=== PATIENT | female | born 1945 | race Caucasian/White ===

== ENCOUNTER → 2017-09-23 09:10 | Outpatient (CLI) | payer MEDICARE, BC, SELFPAY ==
[2017-09-23 10:58] LABS: Free T3 2.2 pg/mL (2.18-3.98); T4 Free Direct 1.35 ng/dL (0.76-1.46); Thyroid Stim Hormone (TSH) 0.36 uIU/mL (0.358-3.74)
[2017-09-25 17:08] LABS: Anti-Thyroglobulin AB < 1.0 IU/mL (0.0-0.9); Thyroglobulin, Serum Qt. 0.1 ng/mL (1.5-38.5)
== END ==
PROVIDERS: Family Provider Family Medicine; PCP Family Medicine; Visit Provider Nurse Practitioner
DX: E03.9 Hypothyroidism, unspecified (principal)
CPT/HCPCS: 36415; 84432; 84439; 84443; 84481; 86800

== ENCOUNTER → 2018-04-29 11:57 | Outpatient (CLI) | payer MEDICARE, BC, SELFPAY ==
[2017-09-23 08:18] VITALS: BMI 30.2
[2018-04-29 14:31] LABS: Anion Gap 10 (5-15); BUN 25 mg/dL (7-18); BUN/Creat Ratio 30.8 RATIO (10-20); Calcium,Total 10.1 mg/dL (8.5-10.1); Chloride 105 mmol/L (98-107); Cholesterol 278 mg/dL (200); Creatinine, Serum 0.81 mg/dL (0.55-1.02); EST Glomerular Filtration Rate 74 mL/min (>60); Est Glom Filt Rate - Afr Amer 89 mL/min (>60); Glucose 96 mg/dL (74-106); High Density Lipoprotein 55 mg/dL; Potassium 3.9 mmol/L (3.5-5.1); Sodium Level 143 mmol/L (136-145); Thyroid Stim Hormone (TSH) 2.02 uIU/mL (0.358-3.74); Triglycerides 209 mg/dL; Very Low Density Lipoprotein 42 mg/dL (5-40)
== END ==
PROVIDERS: Family Provider Family Medicine; PCP Family Medicine; Referring Provider Family Medicine; Visit Provider Family Medicine
DX: I10 Essential (primary) hypertension (principal); E03.9 Hypothyroidism, unspecified
CPT/HCPCS: 36415; 80048; 80061; 84436; 84443

== ENCOUNTER → 2018-06-29 11:34 | Outpatient (CLI) | payer MEDICARE, BC, SELFPAY ==
[2017-09-23 08:18] VITALS: BMI 30.2
[2018-06-29 15:48] LABS: AST(SGOT) 16 U/L (15-37); Alanine Aminotransfer ALT/SGPT 22 U/L (13-56); Alkaline Phosphatase 54 U/L (45-117); Anion Gap 9 (5-15); BUN 29 mg/dL (7-18); BUN/Creat Ratio 41.7 RATIO (10-20); Bilirubin, Direct 0.12 mg/dL (0.00-0.30); Calcium,Total 8.6 mg/dL (8.5-10.1); Chloride 105 mmol/L (98-107); Cholesterol 255 mg/dL (200); EST Glomerular Filtration Rate 88 mL/min (>60); Est Glom Filt Rate - Afr Amer 107 mL/min (>60); Globulin 3.2 g/dL (2.2-4.2); Glucose 89 mg/dL (74-106); High Density Lipoprotein 51 mg/dL; Potassium 3.9 mmol/L (3.5-5.1); Protein, Total 7.2 g/dL (6.4-8.2); Sodium Level 141 mmol/L (136-145); T4 Total, Thyroxin 11.6 ug/dL (4.8-13.9); Thyroid Stim Hormone (TSH) 0.75 uIU/mL (0.358-3.74); Triglycerides 274 mg/dL; Very Low Density Lipoprotein 55 mg/dL (5-40)
== END ==
PROVIDERS: Family Provider Family Medicine; PCP Family Medicine; Referring Provider Family Medicine; Visit Provider Family Medicine
DX: E03.9 Hypothyroidism, unspecified (principal); I10 Essential (primary) hypertension
CPT/HCPCS: 36415; 80048; 80061; 80076; 84436; 84443

== ENCOUNTER → 2018-08-05 09:10 | Outpatient (CLI) | payer MEDICARE, BC, SELFPAY ==
[2018-08-05 10:35] LABS: T4 Total, Thyroxin 11.4 ug/dL (4.8-13.9); Thyroid Stim Hormone (TSH) 1.07 uIU/mL (0.358-3.74)
== END ==
PROVIDERS: Family Provider Family Medicine; PCP Family Medicine; Referring Provider Family Medicine; Visit Provider Family Medicine
DX: E03.9 Hypothyroidism, unspecified (principal)
CPT/HCPCS: 36415; 84436; 84443

== ENCOUNTER → 2019-10-26 09:23 | Outpatient (CLI) | payer MEDICARE, BC, SELFPAY ==
[2017-09-23 08:18] VITALS: BMI 30.2
[2019-10-26 11:00] LABS: Anion Gap 3 (5-15); BUN 25 mg/dL (7-18); Calcium,Total 8.8 mg/dL (8.5-10.1); Chloride 105 mmol/L (98-107); Cholesterol 269 mg/dL (200); Creatinine, Serum 0.89 mg/dL (0.55-1.02); EST Glomerular Filtration Rate 66 mL/min (>60); Est Glom Filt Rate - Afr Amer 80 mL/min (>60); Glucose 95 mg/dL (74-106); High Density Lipoprotein 50 mg/dL; Potassium 3.9 mmol/L (3.5-5.1); Sodium Level 138 mmol/L (136-145); T4 Total, Thyroxin 10.6 ug/dL (4.8-13.9); Triglycerides 172 mg/dL; Very Low Density Lipoprotein 34 mg/dL (5-40)
== END ==
PROVIDERS: PCP Family Medicine; Referring Provider Family Medicine; Visit Provider Family Medicine
DX: I10 Essential (primary) hypertension (principal); E03.9 Hypothyroidism, unspecified
CPT/HCPCS: 36415; 80048; 80061; 84436; 84443

== ENCOUNTER → 2020-02-23 08:40 | Outpatient (CLI) | payer MEDICARE, BC, SELFPAY ==
[2017-09-23 08:18] VITALS: BMI 30.2
[2020-02-23 10:48] LABS: Thyroid Stim Hormone (TSH) 0.21 uIU/mL (0.358-3.74)
== END ==
PROVIDERS: PCP Family Medicine; Visit Provider Family Medicine
DX: E03.9 Hypothyroidism, unspecified (principal)
CPT/HCPCS: 36415; 84443

== ENCOUNTER → 2020-04-18 08:21 | Outpatient (CLI) | payer MEDICARE, BC, SELFPAY ==
[2017-09-23 08:18] VITALS: BMI 30.2
[2020-04-18 10:56] LABS: Thyroid Stim Hormone (TSH) 0.28 uIU/mL (0.358-3.74)
== END ==
PROVIDERS: PCP Family Medicine; Referring Provider Family Medicine; Visit Provider Family Medicine
DX: E03.9 Hypothyroidism, unspecified (principal)
CPT/HCPCS: 36415; 84443

== ENCOUNTER → 2020-06-12 08:31 | Outpatient (CLI) | payer MEDICARE, BC, SELFPAY ==
--- NOTE | 2020-06-12 08:34 | BI_ITS ---
MAMMOGRAPHY - BILATERAL SCREENING REASON FOR EXAM: Female, 74 years old. Routine annual screening examination. PERTINENT HISTORY: Personal history of breast cancer. Prior left mastectomy and TRAM flap reconstruction. TECHNIQUE: Digital bilateral breast olegario (3D mammographic acquisition) in the CC and MLO projections. 2-D mediolateral oblique (MLO) and craniocaudad (CC) views of both breasts were obtained. CAD: Full Field Digital Mammography with Computer Added Detection was performed. COMPARISON: Comparison is made with prior abdomen examination dated 03/17/2018. FINDINGS: Breast Composition: The breasts are almost entirely fatty. There are no dominant masses or suspicious calcifications. There is deformity of the left breast. No other significant abnormalities are identified. There has been no significant change since the prior study. BI/SCRN MAMM (CAD)W/OLEGARIO BILAT IMPRESSION: Stable bilateral screening mammogram. Yearly follow-up mammogram recommended. (A) ASSESSMENT CATEGORY: BIRADS Category 2: Benign. A letter regarding these results will be sent to the patient by the facility within 30 days. Approximately 10% of breast cancers are not detected by mammography. A normal mammogram should not delay biopsy of a clinically suspicious abnormality. [id number] Electronically Signed: Dameon Cain MD at 9:49 EDT , Service support ,
== END ==
PROVIDERS: PCP Family Medicine; Referring Provider Family Medicine; Visit Provider Family Medicine
DX: Z12.31 Encounter for screening mammogram for malignant neoplasm of breast (principal); Z85.3 Personal history of malignant neoplasm of breast
CPT/HCPCS: 77063; 77067

== ENCOUNTER → 2020-10-25 14:13 | Outpatient (CLI) | payer MEDICARE, BC, SELFPAY ==
[2020-10-25 18:31] LABS: AST(SGOT) 17 U/L (15-37); Alanine Aminotransfer ALT/SGPT 34 U/L (13-56); Cholesterol 250 mg/dL (200); High Density Lipoprotein 47 mg/dL; Thyroid Stim Hormone (TSH) 0.25 uIU/mL (0.358-3.74); Triglycerides 187 mg/dL; Very Low Density Lipoprotein 37 mg/dL (5-40)
== END ==
PROVIDERS: PCP Family Medicine; Referring Provider Family Medicine; Visit Provider Family Medicine
DX: E03.9 Hypothyroidism, unspecified (principal); E78.00 Pure hypercholesterolemia, unspecified
CPT/HCPCS: 36415; 80061; 84443; 84450; 84460

== ENCOUNTER 2021-04-17 07:42 | Outpatient (CLI) | payer MEDICARE, BC, SELFPAY ==
[2021-04-17 10:30] LABS: T4 Free Direct 1.49 ng/dL (0.76-1.46)
== END 2021-04-17 23:59 | disposition home or self-care (01) ==
LOC: MTLAB 07:43
PROVIDERS: PCP Family Medicine; Referring Provider Internal Medicine Endocrinology, Diabetes & Metabolism; Visit Provider Internal Medicine Endocrinology, Diabetes & Metabolism
DX: E03.9 Hypothyroidism, unspecified (principal)
CPT/HCPCS: 36415; 84439; 84443

== ENCOUNTER → 2021-06-13 | Outpatient (CLI) | payer MEDICARE, BC, SELFPAY ==
--- NOTE | 2021-06-13 10:00 | BI_ITS ---
MAMMOGRAPHY - BILATERAL SCREENING 3-D TOMOSYNTHESIS REASON FOR EXAM: Female, 75 years old. SCREENING PERTINENT HISTORY: No significant family history. TECHNIQUE: 2-D mammograms and 3-D Tomosynthesis of the breast (s) were performed. CAD was performed. COMPARISON: 06/12/2020 FINDINGS: The breast composition is composed of scattered fibroglandular density. Scattered benign calcifications are seen. No dense spiculated masses or suspicious microcalcifications are identified. No architectural distortion is identified. There is no skin thickening or retraction. There has been no significant change since the prior study. BI/SCRN MAMM (CAD)W/OLEGARIO BILAT IMPRESSION: No mammographic signs of malignancy. Routine yearly mammograms recommended. ASSESSMENT CATEGORY: BIRADS Category 1: Negative. A letter regarding these results will be sent to the patient by the facility within 30 days. FOLLOW UP RECOMMENDATION: Yearly follow up mammogram recommended. (A) Approximately 10% of breast cancers are not detected by mammography. A normal mammogram should not delay biopsy of a clinically suspicious abnormality. Electronically Signed: Rivera Soliman MD at 14:00 EDT ,
== END | disposition home or self-care (01) ==
LOC: OPBI 09:58
PROVIDERS: PCP Family Medicine; Visit Provider Family Medicine
DX: Z12.31 Encounter for screening mammogram for malignant neoplasm of breast (principal)
CPT/HCPCS: 77063; 77067

== ENCOUNTER → 2021-10-30 | Outpatient (CLI) | payer MEDICARE, BC, SELFPAY ==
[2021-10-30 12:59] LABS: Anion Gap 8 (5-15); BUN 21 mg/dL (7-18); BUN/Creat Ratio 28.3 RATIO (10-20); Calcium,Total 9.3 mg/dL (8.5-10.1); Chloride 106 mmol/L (98-107); Cholesterol 287 mg/dL (200); Creatinine, Serum 0.74 mg/dL (0.55-1.02); EST Glomerular Filtration Rate 81 mL/min (>60); Est Glom Filt Rate - Afr Amer 98 mL/min (>60); Glucose 83 mg/dL (74-106); High Density Lipoprotein 45 mg/dL; Potassium 3.7 mmol/L (3.5-5.1); Sodium Level 141 mmol/L (136-145); Triglycerides 360 mg/dL; Very Low Density Lipoprotein 72 mg/dL (5-40)
[2021-10-30 15:23] LABS: Microalbumin,Random Urine 43.3 mg/L (NO RANGE EST.); Microalbumin:Creatinine Ratio 31.4 mg/g CRE (<30 mg/g CRE)
== END | disposition home or self-care (01) ==
LOC: MFPLAB 11:16
PROVIDERS: PCP Family Medicine; Visit Provider Family Medicine
DX: I10 Essential (primary) hypertension (principal)
CPT/HCPCS: 36415; 80048; 80061; 82043; 82570

== ENCOUNTER → 2022-02-08 | Outpatient (CLI) | payer MEDICARE, BC, SELFPAY ==
[2022-02-08 15:33] LABS: Vitamin B12 432 pg/mL (211-911); Vitamin D,25 Hydroxy 26.9 ng/mL
[2022-02-08 15:40] LABS: ALB/GLOB Ratio 1.1 RATIO (0.9-2.4); AST(SGOT) 24 U/L (15-37); Alanine Aminotransfer ALT/SGPT 42 U/L (13-56); Albumin, Serum 3.7 g/dL (3.2-5.0); Alkaline Phosphatase 70 U/L (45-117); Anion Gap 7 (5-15); BUN 26 mg/dL (7-18); BUN/Creat Ratio 35.2 RATIO (10-20); Calcium,Total 9.5 mg/dL (8.5-10.1); Chloride 105 mmol/L (98-107); Creatinine, Serum 0.74 mg/dL (0.55-1.02); EST Glomerular Filtration Rate 82 mL/min (>60); Est Glom Filt Rate - Afr Amer 99 mL/min (>60); Ferritin 90 ng/mL (8-252); Globulin 3.3 g/dL (2.2-4.2); Glucose 99 mg/dL (74-106); Potassium 3.9 mmol/L (3.5-5.1); Sodium Level 140 mmol/L (136-145); T4 Free Direct 1.44 ng/dL (0.76-1.46); Thyroid Stim Hormone (TSH) 0.24 uIU/mL (0.358-3.74)
[2022-02-08 17:46] LABS: Absolute Lymphocyte Count 2.04 X10^3/uL (0.83-4.51); Absolute Neutrophil Count 3.8 X10^3/uL (2.0-7.7); Basophil# 0.02 X10^3/uL; Basophil% 0.3 % (0-1); Eosinophil# 0.07 X10^3/uL; Eosinophils% 1.1 % (0-5); Hematocrit 44.1 % (37-47); Lymphocyte # 2.04 X10^3/ul (0.83-4.51); Mean Corp Hgb Conc 31.7 g/dL (32-36); Mean Corpuscular Hgb 28.9 pg (27.0-32.0); Mean Corpuscular Volume 90.9 fL (81-99); Mean Platelet Vol. 9.9 fl (6.2-12.0); Monocyte# 0.68 X10^3/uL; Monocyte% 10.3 % (0-10); NRBC Flagged by Analyzer 0.5 % (0-5); Neutrophil # 3.75 X10^3/uL (2.7-7.7); Platelet Count 301 K/mm3 (150-450); RBC Distribution Width CV 13.2 % (11.6-14.6); RBC Distribution Width SD 43.9 fl (35.1-43.9); Red Blood Count 4.85 M/mm3 (4.2-5.4); White Blood Count 6.6 K/mm3 (4.4-11.0)
== END | disposition home or self-care (01) ==
LOC: MTLAB 12:37
PROVIDERS: PCP Family Medicine; Referring Provider Internal Medicine Endocrinology, Diabetes & Metabolism; Visit Provider Internal Medicine Endocrinology, Diabetes & Metabolism
DX: E89.0 Postprocedural hypothyroidism (principal); K76.0 Fatty (change of) liver, not elsewhere classified; E78.2 Mixed hyperlipidemia; E55.9 Vitamin D deficiency, unspecified
CPT/HCPCS: 36415; 80053; 82306; 82607; 82728; 84439; 84443; 85025

== ENCOUNTER → 2022-03-07 | Outpatient (CLI) | payer MEDICARE, BC, SELFPAY ==
--- NOTE | 2022-03-07 09:24 | BD_ITS ---
STUDY: DUAL ENERGY X-RAY ABSORPTIOMETRY / DXA REASON FOR EXAM: Female, 76 years old. osteopenia TECHNIQUE: Bone Mineral Density (BMD) measurements of lumbar spine and bilateral hips were obtained. COMPARISON: None. FINDINGS: Lumbar Spine (L1-L4): g/cm2 (0.927) / T-score (-0.8) / Z-score (1.6) Findings are suggestive of normal bone density with a low fracture risk. Left Femur Total: g/cm2 (0.723) / T-score (-1.8) / Z-score (0.0) Left Femoral Neck: g/cm2 (0.571) / T-score (-2.5) / Z-score (-0.4) Right Femur Total: g/cm2 (0.746) / T-score (-1.6) / Z-score (0.2) Right Femoral Neck: g/cm2 (0.569) / T-score (-2.5) / Z-score (-0.4) BD/Dexa Bone Density Study IMPRESSION: The patient is considered osteopenic as outlined below according to World Davis Organization (WHO) criteria with a high fracture risk. Reference Information: The T-score is the number of standard deviations above or below the standard which is normal for young adults at their peak bone mineral density. The World Health Organization (WHO) interprets the T-scores as follows: Above -1 Normal bone density Between -1 and -2.5 Osteopenia Equal to / or below -2.5 Osteoporosis As a practical clinical guideline, osteopenia may be graded as follows: Mild -1 through -1.5 Moderate -1.6 through -2.0 Severe -2.1 through -2.4 The Z-score is the number of standard deviations above or below age-matched controls. A Z-score of less than -1.5 would be considered abnormal. References: 1. NIH Osteoporosis and Related Bone Diseases www osteo.org 2. International Society for Clinical Densitometry www iscd.org 3. National Osteoporosis Foundation www nof.org Electronically Signed: Dameon Cain MD at 14:26 EST ,
== END | disposition home or self-care (01) ==
LOC: OPBD 09:15
PROVIDERS: PCP Family Medicine; Visit Provider Internal Medicine Endocrinology, Diabetes & Metabolism
DX: M85.89 Other specified disorders of bone density and structure, multiple sites (principal)
CPT/HCPCS: 77080

== ENCOUNTER → 2022-05-13 | Outpatient (CLI) | payer MEDICARE, BC, SELFPAY ==
[2022-05-13 10:37] LABS: Cholesterol 283 mg/dL (200); High Density Lipoprotein 50 mg/dL; T4 Free Direct 1.35 ng/dL (0.76-1.46); Thyroid Stim Hormone (TSH) 1.16 uIU/mL (0.358-3.74); Triglycerides 173 mg/dL; Very Low Density Lipoprotein 35 mg/dL (5-40)
== END | disposition home or self-care (01) ==
PROVIDERS: PCP Family Medicine; Referring Provider Internal Medicine Endocrinology, Diabetes & Metabolism; Visit Provider Internal Medicine Endocrinology, Diabetes & Metabolism
DX: E89.0 Postprocedural hypothyroidism (principal); E55.9 Vitamin D deficiency, unspecified
CPT/HCPCS: 36415; 80061; 82306; 84439; 84443

== ENCOUNTER → 2022-06-14 | Outpatient (CLI) | payer MEDICARE, BC, SELFPAY ==
--- NOTE | 2022-06-14 10:07 | BI_ITS ---
MAMMOGRAPHY - BILATERAL SCREENING REASON FOR EXAM: Female, 76 years old. Routine annual screening examination. PERTINENT HISTORY: Personal history of breast cancer. Prior left mastectomy with TRAM flap reconstruction. TECHNIQUE: Digital bilateral breast olegario (3D mammographic acquisition) in the CC and MLO projections. 2-D mediolateral oblique (MLO) and craniocaudad (CC) views of both breasts were obtained. CAD: Full Field Digital Mammography with Computer Added Detection was performed. COMPARISON: Comparison is made with prior examination dated June 13, 2021 and June 12, 2020. FINDINGS: Breast Composition: The breasts are almost entirely fatty. There are no dominant masses or suspicious calcifications. Stable deformity of the left breast. No other significant abnormalities are identified. There has been no significant change since the prior study. BI/SCRN MAMM (CAD)W/OLEGARIO BILAT IMPRESSION: Stable bilateral screening mammogram. Yearly follow-up mammogram recommended. (A) ASSESSMENT CATEGORY: BIRADS Category 2: Benign. A letter regarding these results will be sent to the patient by the facility within 30 days. Approximately 10% of breast cancers are not detected by mammography. A normal mammogram should not delay biopsy of a clinically suspicious abnormality. [id number] Electronically Signed: Dameon Cain MD at 11:13 EDT ,
== END | disposition home or self-care (01) ==
PROVIDERS: PCP Family Medicine; Referring Provider Family Medicine; Visit Provider Family Medicine
DX: Z12.31 Encounter for screening mammogram for malignant neoplasm of breast (principal); Z85.3 Personal history of malignant neoplasm of breast
CPT/HCPCS: 77063; 77067

== ENCOUNTER → 2022-12-26 | Outpatient (CLI) | payer MEDICARE, BC, SELFPAY ==
[2022-12-26 12:32] LABS: Vitamin D,25 Hydroxy 65.3 ng/mL
[2022-12-26 12:41] LABS: AST(SGOT) 19 U/L (15-37); Alanine Aminotransfer ALT/SGPT 26 U/L (13-56); Albumin, Serum 3.5 g/dL (3.2-5.0); Alkaline Phosphatase 60 U/L (45-117); Anion Gap 8 (5-15); BUN 24 mg/dL (7-18); BUN/Creat Ratio 27.5 RATIO (10-20); Calcium,Total 9.5 mg/dL (8.5-10.1); Chloride 106 mmol/L (98-107); Creatinine, Serum 0.87 mg/dL (0.55-1.02); EST Glomerular Filtration Rate 67 mL/min (>60); Est Glom Filt Rate - Afr Amer 81 mL/min (>60); Globulin 3.6 g/dL (2.2-4.2); Glucose 95 mg/dL (74-106); Protein, Total 7.1 g/dL (6.4-8.2); Sodium Level 141 mmol/L (136-145); T4 Free Direct 1.39 ng/dL (0.76-1.46); Thyroid Stim Hormone (TSH) 1.46 uIU/mL (0.358-3.74)
== END | disposition home or self-care (01) ==
LOC: MTLAB 09:57
PROVIDERS: PCP Family Medicine; Referring Provider Internal Medicine Endocrinology, Diabetes & Metabolism; Visit Provider Internal Medicine Endocrinology, Diabetes & Metabolism
DX: E89.0 Postprocedural hypothyroidism (principal); M81.0 Age-related osteoporosis without current pathological fracture; E55.9 Vitamin D deficiency, unspecified
CPT/HCPCS: 36415; 80053; 82306; 84439; 84443

== ENCOUNTER 2023-01-10 13:19 | Outpatient (CLI) | payer MEDICARE, BC, SELFPAY ==
[2023-01-10 13:29] VITALS: BP 156/59; PULSE 73; RESP 16; TEMP 36.1; O2SAT 99; BMI 26.6
[2023-01-10] MEDS: 0.9% NaCl Peripheral Flush Adult/Peds IV (13:32)
[2023-01-10] MEDS: Zoledronic Acid 5 MG 100 ML 300 MG IV (13:37)
[2023-01-10 14:04] VITALS: BP 127/53; PULSE 73; RESP 16; TEMP 35.8; O2SAT 96
== END 2023-01-10 13:20 | disposition home or self-care (01) ==
LOC: MEDOUTP 13:21
PROVIDERS: PCP Family Medicine; Referring Provider Nurse Practitioner Family; Visit Provider Nurse Practitioner Family
DX: M81.0 Age-related osteoporosis without current pathological fracture (principal)
CPT/HCPCS: 96365; A4216; J3489

== ENCOUNTER → 2023-05-02 | Outpatient (CLI) | payer MEDICARE, BC, SELFPAY ==
[2023-05-02 17:39] LABS: Absolute Lymphocyte Count 2.59 X10^3/uL (0.83-4.51); Absolute Neutrophil Count 4.4 X10^3/uL (2.0-7.7); Basophil# 0.04 X10^3/uL; Basophil% 0.5 % (0-1); Eosinophil# 0.18 X10^3/uL; Eosinophils% 2.2 % (0-5); Hematocrit 43.6 % (37-47); Hemoglobin 13.8 g/dL (12.0-15.0); Lymphocyte # 2.59 X10^3/ul (0.83-4.51); Mean Corp Hgb Conc 31.7 g/dL (32-36); Mean Corpuscular Hgb 28.2 pg (27.0-32.0); Mean Corpuscular Volume 89.2 fL (81-99); Mean Platelet Vol. 9.9 fl (6.2-12.0); Monocyte# 0.85 X10^3/uL; Monocyte% 10.5 % (0-10); NRBC Flagged by Analyzer 0 % (0-5); Neutrophil % 54.4 % (47-70); Platelet Count 312 K/mm3 (150-450); RBC Distribution Width SD 45.4 fl (35.1-43.9); Red Blood Count 4.89 M/mm3 (4.2-5.4); White Blood Count 8.1 K/mm3 (4.4-11.0)
[2023-05-02 17:52] LABS: Erythrocyte Sedimentation Rate 3 mm/hr (0-30)
== END | disposition home or self-care (01) ==
LOC: MFPLAB 15:28
PROVIDERS: PCP Family Medicine; Visit Provider Family Medicine
DX: R53.81 Other malaise (principal); R53.83 Other fatigue
CPT/HCPCS: 36415; 85025; 85652

== ENCOUNTER → 2023-06-16 | Outpatient (CLI) | payer MEDICARE, BC, SELFPAY ==
--- NOTE | 2023-06-16 09:52 | BI_ITS ---
MAMMOGRAPHY - BILATERAL SCREENING REASON FOR EXAM: Female, 77 years old. Routine annual screening examination. PERTINENT HISTORY: Personal history of breast cancer. Prior left mastectomy with TRAM flap reconstruction. Right breast reduction surgery. TECHNIQUE: Digital bilateral breast olegario (3D mammographic acquisition) in the CC and MLO projections. 2-D mediolateral oblique (MLO) and craniocaudad (CC) views of both breasts were obtained. CAD: Full Field Digital Mammography with Computer Added Detection was performed. COMPARISON: Comparison is made with prior study June 14, 2022 and June 13, 2021. FINDINGS: Breast Composition: The breasts are almost entirely fatty. There are no dominant masses or suspicious calcifications. Benign-appearing right axillary lymph nodes. No other significant abnormalities are identified. There has been no significant change since the prior study. BI/SCRN MAMM (CAD)W/OLEGARIO BILAT IMPRESSION: Stable bilateral screening mammogram. Yearly follow-up mammogram recommended. (A) ASSESSMENT CATEGORY: BIRADS Category 2: Benign. A letter regarding these results will be sent to the patient by the facility within 30 days. Approximately 10% of breast cancers are not detected by mammography. A normal mammogram should not delay biopsy of a clinically suspicious abnormality. [id number] Electronically Signed: Dameon Cain MD at 11:34 EDT ,
== END | disposition home or self-care (01) ==
LOC: OPBI 09:52
PROVIDERS: PCP Family Medicine; Referring Provider Family Medicine; Visit Provider Family Medicine
DX: Z12.31 Encounter for screening mammogram for malignant neoplasm of breast (principal); Z85.3 Personal history of malignant neoplasm of breast; Z90.12 Acquired absence of left breast and nipple
CPT/HCPCS: 77063; 77067

== ENCOUNTER → 2023-10-17 | Outpatient (CLI) | payer MEDICARE, BC, SELFPAY ==
--- NOTE | 2023-10-17 10:06 | RAD_ITS ---
STUDY: X-RAY - LUMBAR SPINE REASON FOR EXAM: Female, 78 years old. Back pain. TECHNIQUE: 2 view(s) of the lumbar spine were obtained. COMPARISON: None FINDINGS: Osteopenia. Normal lordosis. Mild dextroscoliosis. Normal vertebral alignment. Diffuse moderate lower thoracic and lumbosacral facet sclerosis. Diffuse intervertebral disc space narrowing with osteophyte formation, subchondral sclerosis and endplate irregularity most marked at L4-5. Vascular calcification and coils projected over the left abdomen. RAD/Lumbar Spine 2 or 3 Views IMPRESSION: Osteopenia with diffuse moderate lower thoracic and lumbosacral spondylosis, most marked at L4-5. Electronically Signed: Liu Fuller MD at 10:23 EDT ,
== END | disposition home or self-care (01) ==
LOC: MTRAD 10:06
PROVIDERS: PCP Family Medicine; Referring Provider Internal Medicine Endocrinology, Diabetes & Metabolism; Visit Provider Internal Medicine Endocrinology, Diabetes & Metabolism
DX: M81.0 Age-related osteoporosis without current pathological fracture (principal); M54.9 Dorsalgia, unspecified
CPT/HCPCS: 72100

== ENCOUNTER → 2024-01-08 | Outpatient (CLI) | payer MEDICARE, BC, SELFPAY ==
[2024-01-08 13:00] LABS: ALB/GLOB Ratio 1.1 RATIO (0.9-2.4); AST(SGOT) 13 U/L (15-37); Alanine Aminotransfer ALT/SGPT 23 U/L (13-56); Albumin, Serum 3.5 g/dL (3.2-5.0); Alkaline Phosphatase 40 U/L (45-117); Anion Gap 2 (5-15); BUN 22 mg/dL (7-18); BUN/Creat Ratio 30.9 RATIO (10-20); Calcium,Total 9.3 mg/dL (8.5-10.1); Chloride 106 mmol/L (98-107); Creatinine, Serum 0.71 mg/dL (0.55-1.02); EST Glomerular Filtration Rate 85 mL/min (>60); Est Glom Filt Rate - Afr Amer 102 mL/min (>60); Globulin 3.3 g/dL (2.2-4.2); Glucose 92 mg/dL (74-106); Potassium 3.8 mmol/L (3.5-5.1); Protein, Total 6.8 g/dL (6.4-8.2); Sodium Level 141 mmol/L (136-145); T4 Free Direct 1.49 ng/dL (0.76-1.46)
[2024-01-08 13:19] LABS: Vitamin D,25 Hydroxy 33.9 ng/mL
== END | disposition home or self-care (01) ==
PROVIDERS: PCP Family Medicine; Referring Provider Internal Medicine Endocrinology, Diabetes & Metabolism; Visit Provider Internal Medicine Endocrinology, Diabetes & Metabolism
DX: M81.0 Age-related osteoporosis without current pathological fracture (principal); E89.0 Postprocedural hypothyroidism; E55.9 Vitamin D deficiency, unspecified
CPT/HCPCS: 36415; 80053; 82306; 84439; 84443

== ENCOUNTER 2024-01-15 12:54 | Outpatient (CLI) | payer MEDICARE, BC, SELFPAY ==
[2024-01-15 13:03] VITALS: BP 146/70; PULSE 72; RESP 16; TEMP 35.6; O2SAT 98
[2024-01-15] MEDS: 0.9% NaCl Peripheral Flush Adult/Peds IV (13:05)
[2024-01-15] MEDS: Zoledronic Acid 5 MG 100 ML 300 MG IV (13:11)
[2024-01-15 13:37] VITALS: BP 127/47; PULSE 72; RESP 16; TEMP 35.9; O2SAT 98
== END 2024-01-15 23:59 | disposition home or self-care (01) ==
LOC: MEDOUTP 12:54
PROVIDERS: PCP Family Medicine; Referring Provider Internal Medicine Endocrinology, Diabetes & Metabolism; Visit Provider Internal Medicine Endocrinology, Diabetes & Metabolism
DX: M81.0 Age-related osteoporosis without current pathological fracture (principal)
CPT/HCPCS: 96365; A4216; J3489

== ENCOUNTER 2024-01-29 11:00 | Outpatient (RCR) | payer MEDICARE, BC, SELFPAY | END 2024-01-29 14:50 | disposition home or self-care (01) | LOC: PT 11:00 | PROVIDERS: PCP Family Medicine; Referring Provider Internal Medicine Endocrinology, Diabetes & Metabolism; Visit Provider Internal Medicine Endocrinology, Diabetes & Metabolism | DX: M47.816 Spondylosis without myelopathy or radiculopathy, lumbar region (principal); M54.9 Dorsalgia, unspecified | CPT/HCPCS: 97110; 97162; 97530 ==

== ENCOUNTER → 2024-03-22 | Outpatient (CLI) | payer MEDICARE, BC, SELFPAY ==
[2024-03-22 15:46] LABS: Protein, Urine (Random) 21.2 mg/dL (<11.9); Protein:Creat Ratio 156 mg/g CRE (0-200)
[2024-03-22 16:14] LABS: Anion Gap 9 (5-15); BUN 27 mg/dL (7-18); BUN/Creat Ratio 33.3 RATIO (10-20); Calcium,Total 9.4 mg/dL (8.5-10.1); Chloride 102 mmol/L (98-107); Cholesterol 246 mg/dL (200); Creatinine, Serum 0.81 mg/dL (0.55-1.02); EST Glomerular Filtration Rate 73 mL/min (>60); Est Glom Filt Rate - Afr Amer 88 mL/min (>60); Glucose 84 mg/dL (74-106); High Density Lipoprotein 62 mg/dL; Potassium 3.8 mmol/L (3.5-5.1); Sodium Level 137 mmol/L (136-145); Triglycerides 175 mg/dL; Very Low Density Lipoprotein 35 mg/dL (5-40)
== END | disposition home or self-care (01) ==
LOC: MFPLAB 10:04
PROVIDERS: PCP Family Medicine; Referring Provider Family Medicine; Visit Provider Family Medicine
DX: I10 Essential (primary) hypertension (principal)
CPT/HCPCS: 36415; 80048; 80061; 82570; 84156

== ENCOUNTER → 2024-06-16 | Outpatient (CLI) | payer MEDICARE, BC, SELFPAY ==
--- NOTE | 2024-06-16 09:51 | BI_ITS ---
EXAM: SCRN MAMM (CAD)W/OLEGRAIO BILAT DATE: 06/16/2024 CLINICAL HISTORY: F, Age 78 y/o , ANNUAL Personal history of breast cancer. Prior left mastectomy with left tram flap reconstruction. Right breast reduction surgery. BREAST CANCER RISK ASSESSMENT: Not assessed. TECHNIQUE: Bilateral screening digital breast tomosynthesis with 2D and 3D images. Computer aided detection. COMPARISON: Prior exam(s) dated June 16, 2023.. FINDINGS: TISSUE DENSITY: The breast tissue is almost entirely fatty. Bilateral Breast Mammographic Findings: No significant masses, calcifications or other abnormalities are identified. No suspicious masses, areas of developing architectural distortion, or suspicious calcifications. There has been no significant interval change. BI/SCRN MAMM (CAD)W/OLEGARIO BILAT IMPRESSION: OVERALL FINAL ASSESSMENT: BIRADS 2 BENIGN FINDING RECOMMENDATION: Routine annual follow-up in 1 Year A letter with findings and recommendations will be mailed to the patient. Reading Location: [place] [id number]
== END | disposition home or self-care (01) ==
LOC: OPBI 09:51
PROVIDERS: PCP Family Medicine; Referring Provider Family Medicine; Visit Provider Family Medicine
DX: Z12.31 Encounter for screening mammogram for malignant neoplasm of breast (principal); Z85.3 Personal history of malignant neoplasm of breast; Z90.12 Acquired absence of left breast and nipple
CPT/HCPCS: 77063; 77067

== ENCOUNTER → 2024-08-09 | Outpatient (CLI) | payer MEDICARE, BC, SELFPAY ==
[2024-08-09 17:59] LABS: Hemoglobin A1c 5.8 % (<=5.6)
[2024-08-09 18:04] LABS: Absolute Lymphocyte Count 2.71 X10^3/uL (0.83-4.51); Absolute Neutrophil Count 5.1 X10^3/uL (2.0-7.7); Basophil# 0.06 X10^3/uL; Basophil% 0.7 % (0-1); Eosinophils% 1.1 % (0-5); Hematocrit 40.9 % (37-47); Hemoglobin 13.8 g/dL (12.0-15.0); Lymphocyte # 2.71 X10^3/ul (0.83-4.51); Lymphocyte % 30.5 % (19-41); Mean Corp Hgb Conc 33.7 g/dL (32-36); Mean Corpuscular Hgb 29.7 pg (27.0-32.0); Mean Corpuscular Volume 88.1 fL (81-99); Mean Platelet Vol. 9.3 fl (6.2-12.0); Monocyte# 0.92 X10^3/uL; Monocyte% 10.3 % (0-10); NRBC Flagged by Analyzer 0 % (0-5); Neutrophil # 5.07 X10^3/uL (2.7-7.7); Neutrophil % 57.1 % (47-70); Platelet Count 291 K/mm3 (150-450); RBC Distribution Width CV 13.2 % (11.6-14.6); RBC Distribution Width SD 42.5 fl (35.1-43.9); Red Blood Count 4.64 M/mm3 (4.2-5.4); White Blood Count 8.9 K/mm3 (4.4-11.0)
[2024-08-10 15:53] LABS: ALB/GLOB Ratio 1.6 RATIO (0.9-2.4); AST(SGOT) 22 U/L (<=31); Alanine Aminotransfer ALT/SGPT 13 U/L (<=34); Albumin, Serum 4.4 g/dL (3.4-4.8); Alkaline Phosphatase 45 U/L (35-104); Anion Gap 12 (5-15); BUN 24 mg/dL (4-19); BUN/Creat Ratio 26.8 RATIO (10-20); Calcium,Total 9.1 mg/dL (7.6-11.0); Carbon Dioxide 23.5 mmol/L (21.0-32.0); Chloride 101 mmol/L (98-108); Creatinine, Serum 0.89 mg/dL (0.70-1.20); EST Glomerular Filtration Rate 67 (>60); Globulin 2.7 g/dL (2.2-4.2); Glucose 95 mg/dL (70-99); Sodium Level 137 mmol/L (133-145); Total Bilirubin 0.28 mg/dL (0.00-1.30)
== END | disposition home or self-care (01) ==
LOC: MFPLAB 16:34
PROVIDERS: PCP Family Medicine
DX: N39.0 Urinary tract infection, site not specified (principal)
CPT/HCPCS: 36415; 80053; 82248; 83036; 84443; 85025

== ENCOUNTER → 2024-08-19 | Outpatient (CLI) | payer MEDICARE, BC, SELFPAY ==
--- NOTE | 2024-08-19 15:04 | RAD_ITS ---
EXAM: XR Chest, 2 Views CLINICAL INDICATION: EXERCTION E TECHNIQUE: Frontal and lateral views of the chest. COMPARISON: No relevant prior studies available. FINDINGS: LUNGS AND PLEURAL SPACES: Unremarkable. No consolidation. No pneumothorax. HEART: Unremarkable. No cardiomegaly. MEDIASTINUM: Unremarkable. Normal mediastinal contour. BONES/JOINTS: Suggestion of pectus excavatum. No acute fracture. RAD/Chest PA and Lateral IMPRESSION: No acute cardiopulmonary process. Reading Location: [id number]
== END | disposition home or self-care (01) ==
LOC: MTRAD 15:03
PROVIDERS: PCP Family Medicine; Referring Provider Family Medicine; Visit Provider Family Medicine
DX: N39.0 Urinary tract infection, site not specified (principal)
CPT/HCPCS: 71046

== ENCOUNTER → 2024-09-22 | Outpatient (CLI) | payer MEDICARE, BC, SELFPAY ==
--- NOTE | 2024-09-22 06:51 | ECHOD_ITS ---
Reason For Study Reason For Study: ATRIAL FLUTTER Procedure This was a 2D Doppler, Color Flow transthoracic echocardiogram. The study was technically difficult. Exam performed in department. Left Ventricle Normal LV size. The left ventricular ejection fraction is 60 %. No regional wall motion abnormalities noted. Right Ventricle Normal RV size. Normal systolic function. Atria Normal left atrium. Normal right atrium. Mitral Valve Normal mitral valve. Tricuspid Valve Normal tricuspid valve. Mild tricuspid valve insufficiency. Pulmonary artery systolic pressure is 23 mmHg. Aortic Valve Trisinus/trileaflet aortic valve. Mild focal aortic valve calcification. Mild (1+) eccentric aortic valve insufficiency. Pulmonic Valve Normal pulmonic valve. Great Vessels Normal aortic root. The pulmonary artery is normal size. Inferior vena cava collapse with respiration. Pericardium/Pleural No pericardial effusion. MMode/2D Measurements & Calculations LVIDd: 4.1 cm IVSd: 1.2 cm LVOT diam: 1.9 cm LVIDs: 2.9 cm LVPWd: 0.97 cm LVOT area: 2.7 cm2 RVDd: 3.0 cm FS: 29.8 % asc Aorta Diam: 2.8 cm LAV(MOD-sp4): 12.1 ml LVAd ap4: 16.2 cm2 LVLd ap4: 7.2 cm EDV(MOD-sp4): 30.6 ml EDV(sp4-el): 31.1 ml LVAs ap4: 9.3 cm2 LVLs ap4: 5.6 cm ESV(MOD-sp4): 13.3 ml ESV(sp4-el): 13.1 ml EF(MOD-sp4): 56.4 % EF(sp4-el): 57.7 % LVAd ap2: 16.9 cm2 SV(MOD-sp4): 17.3 ml SV(MOD-sp2): 19.3 ml LVLd ap2: 6.9 cm SI(MOD-sp4): 9.8 ml/m2 SI(MOD-sp2): 10.9 ml/m2 EDV(MOD-sp2): 34.5 ml EDV(sp2-el): 35.4 ml LVAs ap2: 10.3 cm2 LVLs ap2: 5.8 cm ESV(MOD-sp2): 15.2 ml ESV(sp2-el): 15.5 ml EF(MOD-sp2): 56.0 % SV(sp4-el): 17.9 ml Ao sinus diam: 3.[address] Junction: 2.6 cm TAPSE: 1.6 cm LA A4 area: 8.0 cm2 RA A4 area: 7.9 cm2 Doppler Measurements & Calculations MV A max tariq: 101.7 cm/sec Lat Peak E' Tariq: 5.2 cm/sec Med Peak E' Tariq: 5.5 cm/sec Ao V2 max: 119.2 cm/sec LV V1 max: 83.0 cm/sec SV(LVOT): 47.6 ml Ao max P.7 mmHg LV V1 max P.8 mmHg Ao V2 mean: 83.8 cm/sec LV V1 mean P.4 mmHg Ao mean P.0 mmHg LV V1 mean: 55.8 cm/sec Ao V2 VTI: 20.8 cm LV V1 VTI: 17.4 cm AV (velocity ratio): 0.84 ELZA(I,D): 2.3 cm2 ELZA(V,D): 1.9 cm2 TV V2 max: 217.8 cm/sec PA V2 max: 94.4 cm/sec TV max P.0 mmHg ECHO/Echo Complete Interpretation Summary Normal LV size. The left ventricular ejection fraction is 60 %. Mild focal aortic valve calcification. Mild (1+) eccentric aortic valve insufficiency. Ordering Physician: Nithin Brandon Referring Physician: Nithin Brandon Performed By: Yue Ross RDCS and Student
--- OUTSIDE RECORDS SUMMARY | 2024-09-22 06:51 | XMS RPT_ITS | CCD ---
Author Organization [facility] Care Team Providers Care Medical Underwriter Name Role Phone Pearl BLACKMON, Ashley Herbert Unavailable Dr. Martina Doll Primary Care Provider Dr. Martina Doll Referring Provider [phone] Lake Campos Attending Provider [phone] Dr. Martina Doll Primary Care Provider Dr. Martina Doll Referring Provider [phone] [place] Campos Attending Provider Dr. Martina Doll Primary Care Provider Dr. Martina Doll Referring Provider [phone] [place] Campos Attending Provider Dr. Martina Doll Primary Care Provider Dr. Martina Doll Referring Provider [phone] [place] Campos Attending Provider [phone] Dr. Martina Doll MD Primary Care Provider Dr. Martina Doll MD Attending Provider Dr. Maritna Doll MD Referring Provider Dr. Nithin Brandon MD Primary Care Provider Dr. Nithin Brandon MD Attending Provider Dr. Nithin Brandon MD Referring Provider [phone] Martina Doll Primary Care Provider [phone] DINA MAYA Attending Unavailable MARTINA DOLL Primary Care Unavailable Giselle Bell Attending Provider Jolliff, Martina S Primary Care Unavailable Jolliff, Martina S Referring Unavailable Jolliff, Martina S Attending Unavailable Andres, Lake Attending Unavailable Andres, Lake Referring Unavailable Jolliff, Martina S Primary Care Unavailable Jolliff, Martina S Primary Care Unavailable Andres, Lake Attending Unavailable Andres, Lake Referring Unavailable Jolliff, Martina S Primary Care Unavailable Andres, Lake Referring Unavailable Andres, Lake Attending Unavailable Jolliff, Martina S Primary Care Unavailable Andres, Lake Referring Unavailable Andres, Lake Attending Unavailable Ranney, Christshirleyer Primary Care Unavailable Ranney, Alexer Referring Unavailable Roma, Nithin Attending Unavailable Giselle Paredes NP Attending Unavailable [facility], [facility] Unavailable Ranney, Christopher Referring Unavailable Roma, Nithin Attending Unavailable Roma, Christopher Primary Care Unavailable Jolliff, Martina S Primary Care Unavailable Andres, Lake Attending Unavailable Jolliff, Martina S Referring Unavailable Roma, Christopher Primary Care Unavailable Roma, Alexer Referring Unavailable Nithin Brandon Attending Unavailable Medications Current Medications Medication Drug Class(es) Dates Sig (Normalized) Sig (Original) atenolol 25 mg oral tablet (15 sources) beta-Adrenergic Edda Start: 07-19-2016 take 1 tablet by mouth once daily Atenolol 25 MG tablet Active 25 mg PO DAILY July 19, 2016 12:00am calcium carb/vit D3/minerals (CALTRATE 600+D PLUS MINERALS ORAL) (1 source) calcium carb/vit D3/minerals (CALTRATE 600+D PLUS MINERALS ORAL) Active calcium carbonate 1250 mg oral tablet (3 sources) Start: 10-16-2023 take 1 tablet by mouth every other day Calcium Carbonate 500 mg calcium (1,250 mg) tablet Active 500 mg PO every other day October 16, 2023 12:00am cholecalciferol 0.025 mg oral capsule (20 sources) Vitamin D Start: 10-16-2023 take 1 capsule by mouth once daily Cholecalciferol (Vitamin D3) 25 mcg (1,000 unit) capsule Active 25 ug PO DAILY October 16, 2023 12:00am Start: 11-19-2022 End: 10-16-2023 take 1 capsule by mouth once daily Cholecalciferol (Vitamin D3) 125 mcg (5,000 unit) capsule Discontinued 250 ug PO DAILY November 19, 2022 10:27am October 16, 2023 1:54pm Start: 02-08-2021 End: 11-19-2022 take 1 capsule by mouth once daily Cholecalciferol (Vitamin D3) 125 mcg (5,000 unit) capsule Discontinued 125 ug PO DAILY February 08, 2021 1:00am November 19, 2022 10:28am icosapent ethyl 500 mg oral capsule (20 sources) Start: 12-28-2023 End: 05-13-2024 Icosapent Ethyl (Vascepa) 0. 5 gram capsule Active 2 g PO TWICE A DAY 720 May 13, 2024 12:45pm Start: 02-07-2022 End: 12-28-2023 Icosapent Ethyl (Vascepa) 1 gram capsule Discontinued 2 g PO TWICE A DAY 360 December 24, 2023 11:39am December 28, 2023 8:55pm VASCEPA 0.5 gram capsule Active Gixcbbyg-Lqm-Ssiq-Fa-Lutein (Centrum Silver Women) 8 mg iron-400 mcg-300 mcg tablet (3 sources) Start: 03-11-2022 take 1 tablet by mouth once daily Gdyonvhr-Whh-Csla-Fa-Lutein (Centrum Silver Women) 8 mg iron-400 mcg-300 mcg tablet Active 1 TABLET PO DAILY March 11, 2022 1:00am Start: 03-11-2022 take 1 tablet by byron once daily Kflbwrbg-Jdd-Kxsr-Fa-Lutein (Centrum Loretta yas Women) 8 mg iron-400 mcg-300 mcg tablet Active 1 TABLET PO DAILY March 11, 2022 12:00am vitamin K2 (4 sources) Start: 11-19-2022 take 45 ug by mouth once daily Vitamin K2 Active 45 MCG PO DAILY November 19, 2022 12:00am Start: 11-19-2022 take 45 ug by mouth once daily Vitamin K2 Active 45 MCG PO DAILY November 18, 2022 11:00pm 100 ml zoledronic acid 0.05 mg/ml injection (10 sources) Bisphosphonate Start: 12-26-2022 End: 12-29-2023 take 5 mg intravenously once Zoledronic Nhva-Qqhsvswr-Qjflt 5 mg/100 mL piggyback Active 0 .ROUTE ONCE 100 0 December 29, 2023 10:28am Osteoporosis Age-related osteoporosis without current pathological fracture 5 mg IVP x1 once; infuse over 20 minutes Completed/Discontinued Medications Medication Drug Class(es) Dates Sig (Normalized) Sig (Original) aspirin 81 mg oral tablet (1 source) Platelet Aggregation Inhibitor, Nonsteroidal Anti-inflammatory Drug Start: 10-21-2005 End: 07-21-2024 ASPIRIN 81 MG TAB Take one(1) tablet daily. 0 10/21/2005 07/21/2024 Discontinued (Other) atorvastatin 20 mg oral tablet (1 source) HMG-CoA Reductase Inhibitor Start: 09-15-2012 End: 07-21-2024 take 1 tablet by mouth once daily at bedtime atorvastatin (LIPITOR) 20 mg tablet Take 1 tablet by mouth daily at bedtime. 0 09/15/2012 07/21/2024 Discontinued (Other) calcium carbonate 600 mg / cholecalciferol 0.01 mg oral tablet (14 sources) Vitamin D Start: 02-08-2021 End: 10-16-2023 Qul-A5-Osw17-Zinc -Nfc-Orzb-Mse (Caltrate 600-D Plus Minerals) 600 mg calcium- 800 unit-50 mg tablet Discontinued 1 {tbl} PO DAILY February 08, 2021 1:00am October 16, 2023 1:53pm Start: 09-20-2005 End: 07-21-2024 CALCIUM 600 + D(3) 600 MG-20 0 UNIT TAB Take one(1) tablet two(2) times daily. 0 09/20/2005 07/21/2024 Discontinued (Other) meclizine hydrochloride 25 mg chewable tablet (13 sources) Antiemetic Start: 07-20-2016 End: 02-07-2022 take 1 tablet by mouth four times daily as needed for dizziness Meclizine 25 MG tablet,chewable Discontinued 25 mg PO 4 TIMES DAILY NEEDED as needed for Dizziness 16 0 July 20, 2016 12:08am February 07, 2022 10:23am Quxxqyrj-Wri-Egxr-Fa -Vit K-Lut (Centrum Silver Women) 8 mg iron-400 mcg-300 mcg tablet (7 sources) Start: 03-11-2022 End: 01-10-2023 Weecpwbj-Oil-Blnm-Fa- Vit K-Lut (Centrum Silver Women) 8 mg iron-400 mcg-300 mcg tablet Discontinued 1 {tbl} PO DAILY March 11, 2022 1:00am January 10, 2023 2:28pm Start: 03-11-2022 End: 01-10-2023 take 1 tablet by mouth once daily Kesyhqzc-Wef-Rlml-Fa-Vit K-Lut (Centrum Silver Women) 8 mg iron-400 mcg-300 mcg tablet Discontinued 1 TABLET PO DAILY March 11, 2022 1:00am January 10, 2023 2:28pm Start: 03-11-2022 End: 01-10-2023 take 1 tablet by mouth once daily Vuhobnro-Bju-Ztvh-Fa-Vit K-Lut (Centrum Silver Women) 8 mg iron-400 mcg-300 mcg tablet Discontinued 1 TABLET PO DAILY March 11, 2022 12:00am January 10, 2023 1:28pm Start: 03-11-2022 take 1 tablet by byron th once daily Urnkdawr-Swh-Lsnq-Fa-Vit K-Lut (Centrum Silver Women) 8 mg iron-400 mcg-300 mcg tablet Active 1 TABLET PO DAILY March 11, 2022 12:00am Gary 0-Ojd-Ujy-Fish-Turmeri c (7 sources) Start: 03-11-2022 End: 01-10-2023 Gary 4-Jhs-Haa-Fish-Turmeri c Discontinued 0 PO .COMPLEX March 11, 2022 1:00am January 10, 2023 2:28pm orally; 720mg Start: 03-11-2022 End: 01-10-2023 Gary 4-Qgm-Xsz-Fish-Turmeri c Discontinued 0 PO .COMPLEX March 11, 2022 12:00am January 10, 2023 1:28pm orally; 720mg Start: 03-11-2022 Gary 3-Dha-Ep n-Tsur-Byrkhxjm Active 0 PO .COMPLEX March 11, 2022 1:00am orally; 720mg Start: 03-11-2022 Gary 3-Dha-Ep s-Fsxl-Ctcassph Active 0 PO .COMPLEX March 11, 2022 12:00am orally; 720mg Gary 7-Pvc-Joi-Fish-Turmeric 417 mg-120 mg- 276 mg-600 mg capsule (3 sources) Start: 03-11-2022 End: 01-10-2023 Gary 7-Hth-Xom-Fish-Turmeric 417 mg-120 mg- 276 mg-600 mg capsule Discontinued 0 PO .COMPLEX March 11, 2022 1:00am January 10, 2023 2:28pm orally; 720mg levothyroxine sodium 0.112 mg oral tablet (20 sources) l-Thy roxin e Start: 02-10-2022 End: 07-12-2024 take 1 tablet by mouth once daily Levothyroxine 112 mcg tablet Discontinued 112 ug PO DAILY 90 0 July 07, 2024 12:09pm July 12, 2024 7:45am Start: 02-08-2021 End: 02-10-2022 take 6 tablets by mouth every week Levothyroxine 150 mcg tablet Discontinued 150 ug PO February 08, 2021 1:00am February 10, 2022 2:02pm 6 1/2per week Start: 09-03-2017 End: 02-07-2022 take 7.5 tablets by mouth every week Levothyroxine 125 mcg tablet Discontinued 0 PO DAILY 98 4 September 03, 2017 5:58pm February 07, 2022 10:23am 7.5 tablets q week PO DAILY Start: 05-02-2015 End: 07-21-2024 take 1 tablet by mouth once daily Levothyroxine 125 MCG tablet Discontinued 125 ug PO DAILY July 19, 2016 12:00am September 03, 2017 2:34pm SYNTHROID 125 MC G TABS Take 7.5 tablets per one week. LEVOTHYROXINE SODIUM [id number] Ashley Kang NP Vitamin K2 45 mcg capsule (3 sources) Start: 11-19-2022 End: 10-16-2023 Vitamin K2 45 mcg capsule Discontinued 45 ug PO DAILY November 19, 2022 12:00am October 16, 2023 1:54pm Problems Active Problems Problem Classification Problem Date Documented Date Episodic/Chronic Cancer of breast (1 source) Malignant tumor of breast ; Translations: [Malignant neoplasm of unspecified site of unspecified female breast] Onset: 07-13-2004 06-22-2024 Chronic Cancer of breast (2 sources) History of malignant neoplasm of breast; Translations: [Personal history of malignant neoplasm of breast] Onset: 07-21-2024 07-21-2024 Episodic Complications of surgical procedures or medical care (20 sources) Postoperative hypothyroidism; Translations: [Postprocedural hypothyroidism] Onset: 06-03-2011 Chronic Disorders of lipid metabolism (15 sources) Mixed hyperlipidemia; Translations: [Mixed hyperlipidemia] Onset: 06-03-2011 Chronic Essential hypertension (2 sources) Essential hypertension; Translations: [Essential (primary) hypertension] Onset: 06-03-2011 06-03-2011 Chronic Nutritional deficiencies (16 sources) Vitamin D deficiency; Translations: [Vitamin D deficiency, unspecified] Onset: 10-16-2023 03-11-2022 Chronic Osteoporosis (16 sources) Osteoporosis; Translations: [Age-related osteoporosis without current pathological fracture] Onset: 02-13-2024 03-11-2022 Chronic Other liver diseases (13 sources) Steatosis of liver; Translations: [Fatty (change of) liver, not elsewhere classified] 02-08-2021 Chronic Other liver diseases (3 sources) Fatty (change of) liver, not elsewhere classified; Translations: [Other chronic nonalcoholic liver disease] Chronic Other lower respiratory disease (1 source) Other forms of dyspnea; Translations: [Other forms of dyspnea] Onset: 09-15-2024 Episodic Other nutritional; endocrine; and metabolic disorders (13 sources) Obesity; Translations: [Obesity, unspecified] 02-08-2021 Chronic Other nutritional; endocrine; and metabolic disorders (1 source) Metabolic syndrome X; Translations: [Dysmetabolic syndrome X] Onset: 03-20-2006 06-22-2024 Chronic Other screening for suspected conditions (not mental disorders or infectious disease) (1 source) Encounter for screening mammogram for malignant neoplasm of breast; Translations: [Encounter for screening mammogram for malignant neoplasm of breast] Onset: 06-21-2024 Episodic Residual codes; unclassified (1 source) Patient encounter status; Translations: [Other specified personal risk factors, not elsewhere classified] 07-21-2024 Episodic Residual codes; unclassified (1 source) Other specified personal risk factors, not elsewhere classified; Translations: [HYDROSTATIC TESTER exam for high-risk Medicare patient] Onset: 07-21-2024 Episodic Unclassified (1 source) Malignant tumor of breast ; Translations: [Malignant neoplasm of female breast] Onset: 11-02-2003 06-22-2024 Urinary tract infections (1 source) Urinary tract infection, site not specified; Translations: [Urinary tract infection, site not specified] Onset: 08-24-2024 Episodic Past or Other Problems Problem Classification Problem Date Documented Da te Episodic/Chronic Biliary tract disease (1 source) Chronic cholecystitis; Translations: [Chronic cholecystitis] Onset: 03-04-2006 Resolved: 06-03-2011 06-03-2011 Episodic Spondylosis; intervertebral disc disorders; other back problems (4 sources) Backache; Translations: [Dorsalgia, unspecified] Onset: 10-16-2023 10-16-2023 Episodic Thyroid disorders (2 sources) Hypothyroidism; Translations: [Non-toxic uninodular goiter] Onset: 06-21-2005 Resolved: 06-03-2011 03-27-2016 Chronic Unclassified (1 source) History of thyroidectomy; Translations: [Acquired absence of other organs] Onset: 03-27-2016 03-27-2016 Episodic Results Test Name Value Interpretation Reference Range Facility Chest PA and Lateralon 08-19 Chest PA and Lateral [facility] Imaging Services [address] [place] [id number] Chest PA and Lateral MR#: [id number] Acct: [id number] Name: MARLINE MABRY Rep #: [id number] : 1945 F 79 From: Kiel Roth MD PCP: Dr. Nithin Brandon MD Status: REG CLI Study: Chest PA and Lateral Date of Exam: 08/19/24 Exam# [id number] Ordering Dr: Nithin Brandon EXAM: XR Chest, 2 Views CLINICAL INDICATION: EXERCTION E TECHNIQUE: Frontal and lateral views of the chest. COMPARISON: No relevant prior studies available. FINDINGS: LUNGS AND PLEURAL SPACES: Unremarkable. No consolidation. No pneumothorax. HEART: Unremarkable. No cardiomegaly. MEDIASTINUM: Unremarkable. Normal mediastinal contour. BONES/JOINTS: Suggestion of pectus excavatum. No acute fracture. RAD/Chest PA and Lateral IMPRESSION: No acute cardiopulmonary process. Reading Location: [id number] CC: Dr. Nithin Brandon MD Stock Clerk: Signed Normal [facility] Bilirubin, Directon 08-11-19 25 Bilirubin.direct [Mass/Vol] 0.10 mg/dL Normal 0.00-0.30 [facility] Comment on above: Performed By: #### L 500.4050, L501.9520, L501.4700, L100.0100, L501.9985 #### [facility] [address] [place], [address] Comprehensive Metabolic Prof ilon 08-10-2024 Albumin [Mass/Vol] 4.4 g/dL Normal 3.4-4.8 [facility] Comment on above: Performed By: #### L 500.4050, L501.9520, L501.4700, L100.0100, L501.9985 #### [facility] [address] [place], [address] Albumin/Globulin [Mass ratio] 1.6 {ratio} Normal 0.9-2.4 [facility] Comment on above: Performed By: #### L 500.4050, L501.9520, L501.4700, L100.0100, L501.9985 #### [facility] [address] [place], [address] ALK PHOS 45 U/L Normal 35-104 [facility] Comment on above: Performed By: #### L 500.4050, L501.9520, L501.4700, L100.0100, L501.9985 #### [facility] [address] [place], [address] ALT [Catalytic activity/Vol] 13 U/L Normal <=34 [facility] Comment on above: Performed By: #### L 500.4050, L501.9520, L501.4700, L100.0100, L501.9985 #### [facility] [address] [place], [address] AST [Catalytic activity/Vol] 22 U/L Normal <=31 [facility] Comment on above: Performed By: #### L 500.4050, L501.9520, L501.4700, L100.0100, L501.9985 #### [facility] [address] [place], [address] Bilirubin [Mass/Vol] 0.28 mg/dL Normal 0.00-1.30 [facility] Comment on above: Performed By: #### L 500.4050, L501.9520, L501.4700, L100.0100, L501.9985 #### [facility] [address] [place], [address] BUN/CRE 26.8 RATIO High 10-20 [facility] Comment on above: Performed By: #### L 500.4050, L501.9520, L501.4700, L100.0100, L501.9985 #### [facility] [address] [place], [address] Calcium [Mass/Vol] 9.1 mg/dL Normal 7.6-11.0 [facility] Comment on above: Performed By: #### L 500.4050, L501.9520, L501.4700, L100.0100, L501.9985 #### [facility] [address] [place], [address] Chloride [Moles/Vol] 101 mmol/L Normal 98-108 [facility] Comment on above: Performed By: #### L 500.4050, L501.9520, L501.4700, L100.0100, L501.9985 #### [facility] [address] [place], [address] CO2 [Moles/Vol] 23.5 mmol/L Normal 21.0-32.0 [facility] Comment on above: Performed By: #### L 500.4050, L501.9520, L501.4700, L100.0100, L501.9985 #### [facility] [address] [place], [address] Creatinine [Mass/Vol] 0.89 mg/dL Normal 0.70-1.20 [facility] Comment on above: Performed By: #### L 500.4050, L501.9520, L501.4700, L100.0100, L501.9985 #### [facility] [address] [place], [address] GAP 12 Normal 5-15 [facility] Comment on above: Performed By: #### L 500.4050, L501.9520, L501.4700, L100.0100, L501.9985 #### [facility] [address] [place], [address] GFR/1.73 sq M.predicted among non-blacks MDRD (S/P/Bld) [Vol rate/Area] 67 mL/min/{1.73_m2} Normal >60 [facility] Comment on above: Result Comment: mL/m in/1.73m2 CKD-EPI Creatinine Equation (2020) Performed By: #### L 500.4050, L501.9520, L501.4700, L100.0100, L501.9985 #### [facility] [address] [place], [address] Globulin (S) [Mass/Vol] 2.7 g/dL Normal 2.2-4.[address] [facility] Comment on above: Performed By: #### L 500.4050, L501.9520, L501.4700, L100.0100, L501.9985 #### [facility] [address] [place], [address] Glucose [Mass/Vol] 95 mg/dL Normal 70-99 [facility] Comment on above: Performed By: #### L 500.4050, L501.9520, L501.4700, L100.0100, L501.9985 #### [facility] [address] [place], [address] Potassium [Moles/Vol] 4.0 mmol/L Normal 3.3-5.1 [facility] Comment on above: Result Comment: Hemo lysis present, Results??could be affected. ?? Performed By: #### L 500.4050, L501.9520, L501.4700, L100.0100, L501.9985 #### [facility] [address] [place], [address] Sodium [Moles/Vol] 137 mmol/L Normal 133-145 [facility] Comment on above: Performed By: #### L 500.4050, L501.9520, L501.4700, L100.0100, L501.9985 #### [facility] [address] [place], [address] T PROT 7.0 g/dL Normal 5.9-8.4 [facility] Comment on above: Performed By: #### L 500.4050, L501.9520, L501.4700, L100.0100, L501.9985 #### [facility] [address] [place], [address] Urea nitrogen [Mass/Vol] 24 mg/dL High 4-19 [facility] Comment on above: Performed By: #### L 500.4050, L501.9520, L501.4700, L100.0100, L501.9985 #### [facility] [address] [place], [address] Thyroid Stim Hormone (TSH)on 08-10-2024 TSH 2.160 uIU/mL Normal 0.300-4.200 [facility] Comment on above: Performed By: #### L 500.4050, L501.9520, L501.4700, L100.0100, L501.9985 ####[facility] [address] [place], [place], [id number] Absolute lymphocyte countOrd ered By: Giselle Paredes on 08-09-2024 Lymphocytes Auto (Unsp spec) [#/Vol] 2.71 10*3/uL 0.83-4.51 [facility] Absolute neutrophil countOrd ered By: Giselle Paredes on 08-09-2024 Neutrophils (Bld) [#/Vol] 5.1 10*3/uL 2.0-7.7 [facility] Anion gap in Serum or Plasma Ordered By: Giselle Paredes on 08-09-2024 Anion gap [Moles/Vol] 12 mmol/L 5-15 [facility] Automated lymphocyte count a s percentage of total leukocytesOrdered By: Giselle Paredes on 08-09-2024 Lymphocytes/100 WBC Auto (Unsp spec) 30.5 % - [facility] BUN/creatinine ratioOrdered By: Giselle Paredes on 08-09-2024 Urea nitrogen/Creatinine [Mass ratio] 26.8 mg/mg High 10-20 [facility] Basophil percentageOrdered B y: Giselle Paredes on 08-09-2024 Basophils/100 WBC (Bld) 0.7 % 0-1 [facility] Bilirubin directOrdered By: Giselle Paredes on 08-09-2024 Bilirubin.direct [Mass/Vol] 0.10 mg/dL 0.00-0.30 [facility] Bilirubin, totalOrdered By: Giselle Paredes on 08-09-2024 Bilirubin [Mass/Vol] 0.28 mg/dL 0.00-1.30 [facility] CBC W/Diff, Automatedon 07-25 Absolute Lymph 2.71 X10 3/uL Normal 0.83-4.51 [facility] Comment on above: Performed By: #### L 500.4050, L501.9520, L501.4700, L100.0100, L501.9985 #### [facility] [address] [place], [address] Absolute Neut 5.1 X10 3/uL Normal 2.0-7.7 [facility] Comment on above: Performed By: #### L 500.4050, L501.9520, L501.4700, L100.0100, L501.9985 #### [facility] [address] [place], [address] Basophils/100 WBC (Bld) 0.7 % Normal 0-1 [facility] Comment on above: Performed By: #### L 500.4050, L501.9520, L501.4700, L100.0100, L501.9985 #### [facility] [address] [place], [address] Eosinophils/100 WBC (Bld) 1.1 % Normal 0-5 [facility] Comment on above: Performed By: #### L 500.4050, L501.9520, L501.4700, L100.0100, L501.9985 #### [facility] [address] [place], [address] Erythrocyte distribution width (RBC) [Ratio] 13.2 % Normal 11.6-14.6 [facility] Comment on above: Performed By: #### L 500.4050, L501.9520, L501.4700, L100.0100, L501.9985 #### [facility] [address] [place], [address] Hematocrit (Bld) [Volume fraction] 40.9 % Normal 37-47 [facility] Comment on above: Performed By: #### L 500.4050, L501.9520, L501.4700, L100.0100, L501.9985 #### [facility] [address] [place], [address] Hemoglobin (Bld) [Mass/Vol] 13.8 g/dL Normal 12.0-15.0 [facility] Comment on above: Performed By: #### L 500.4050, L501.9520, L501.4700, L100.0100, L501.9985 #### [facility] [address] [place], [address] IG% 0.300 Normal 0.0-0.9 [facility] Comment on above: Result Comment: IG% - Immature Granulocytes (promyelocytes, myelocytes and metamyelocytes) > 1% indicates that a LEFT SHIFT is Present. Performed By: #### L 500.4050, L501.9520, L501.4700, L100.0100, L501.9985 #### [facility] [address] [place], [address] Lymphocytes/100 WBC (Bld) 30.5 % Normal 19-41 [facility] Comment on above: Performed By: #### L 500.4050, L501.9520, L501.4700, L100.0100, L501.9985 #### [facility] [address] [place], [address] MCH (RBC) [Entitic mass] 29.7 pg Normal 27.0-32.0 [facility] Comment on above: Performed By: #### L 500.4050, L501.9520, L501.4700, L100.0100, L501.9985 #### [facility] [address] [place], [address] MCHC (RBC) [Mass/Vol] 33.7 g/dL Normal 32-36 [facility] Comment on above: Performed By: #### L 500.4050, L501.9520, L501.4700, L100.0100, L501.9985 #### [facility] [address] [place], [address] MCV (RBC) [Entitic vol] 88.1 fL Normal 81-99 [facility] Comment on above: Performed By: #### L 500.4050, L501.9520, L501.4700, L100.0100, L501.9985 #### [facility] [address] [place], [address] Monocytes/100 WBC (Bld) 10.3 % High 0-10 [facility] Comment on above: Performed By: #### L 500.4050, L501.9520, L501.4700, L100.0100, L501.9985 #### [facility] [address] [place], [address] Neutrophils/100 WBC (Bld) 57.1 % Normal 47-70 [facility] Comment on above: Performed By: #### L 500.4050, L501.9520, L501.4700, L100.0100, L501.9985 #### [facility] [address] [place], [address] Nucleated RBC (Bld) [#/Vol] 0 10*3/uL Normal 0-5 [facility] Comment on above: Performed By: #### L 500.4050, L501.9520, L501.4700, L100.0100, L501.9985 #### [facility] [address] [place], [address] Platelet mean volume (Bld) [Entitic vol] 9.3 fL Normal 6.2-12.0 [facility] Comment on above: Performed By: #### L 500.4050, L501.9520, L501.4700, L100.0100, L501.9985 #### [facility] [address] [place], [address] Platelets (Bld) [#/Vol] 291 10*3/uL Normal 150-450 [facility] Comment on above: Performed By: #### L 500.4050, L501.9520, L501.4700, L100.0100, L501.9985 #### [facility] [address] [place], [address] RBC (Bld) [#/Vol] 4.64 10*6/uL Normal 4.2-5.4 [facility] Comment on above: Performed By: #### L 500.4050, L501.9520, L501.4700, L100.0100, L501.9985 #### [facility] [address] [place], [address] RDW SD 42.5 fl Normal 35.1-43.9 [facility] Comment on above: Performed By: #### L 500.4050, L501.9520, L501.4700, L100.0100, L501.9985 #### [facility] [address] [place], [address] WBC (Bld) [#/Vol] 8.9 10*3/uL Normal 4.4-11.0 [facility] Comment on above: Performed By: #### L 500.4050, L501.9520, L501.4700, L100.0100, L501.9985 #### [facility] [address] [place], [address] Carbon dioxide, total [Moles /volume] in Central venous bloodOrdered By: Giselle Paredes on 08-09-2024 CO2 [Moles/Vol] 23.5 mmol/L 21.0-32.0 [facility] Chloride assayOrdered By: Calderon Paredes on 08-09-2024 Chloride [Moles/Vol] 101 mmol/L 98-108 [facility] Eosinophil percentageOrdered By: Giselle Paredes on 08-09-2024 Eosinophils/100 WBC (Bld) 1.1 % 0-5 [facility] Erythrocyte distribution wid th ratioOrdered By: Giselle Paredes on 08-09-2024 Erythrocyte distribution width (RBC) [Ratio] 13.2 % 11.6-14.6 [facility] Erythrocyte distribution wid th standard deviationOrdered By: Giselle Paredes on 08-09-2024 Erythrocyte distribution width (RBC) [Ratio] 42.5 fl 35.1-43.9 [facility] Glomerular filtration rate ( GFR) estimation/1.73 sq m using serum, plasma, or whole bOrdered By: Giselle Paredes on 08-09-2024 GFR/1.73 sq M.predicted among non-blacks MDRD (S/P/Bld) [Vol rate/Area] 67 mL/min/{1.73_m2} >60 [facility] Comment on above: mL/min/1.73m2 CKD-EP I Creatinine Equation (2020) Hematocrit Auto (Bld) [Volum e fraction]Ordered By: Giselle Paredes on 08-09-2024 Hematocrit (Bld) [Volume fraction] 40.9 % 37-47 [facility] Hemoglobin A1con 08-09-2024 HbA1c (Bld) [Mass fraction] 5.8 % High <=5.6 [facility] Comment on above: Result Comment: Norm al < 5.7 % Prediabetic 5.7 - 6.4 % Diabetic >or= 6.5 % Please note range changes. Performed By: #### L 500.4050, L501.9520, L501.4700, L100.0100, L501.9985 #### [facility] [address] [place], [address] Hemoglobin A1c percentageOrd ered By: Giselle Paredes on 08-09-2024 HbA1c (Bld) [Mass fraction] 5.8 % High <5.7 [facility] Comment on above: Normal < 5.7 % Predi abetic 5.7 - 6.4 % Diabetic >or= 6.5 % Please note range changes. Hemoglobin measurementOrdere d By: Giselle Paredes on 08-09-2024 Hemoglobin (Bld) [Mass/Vol] 13.8 g/dL 12.0-15.0 [facility] Immature granulocytes/100 WB C Auto (Bld)Ordered By: Giselle Paredes on 08-09-2024 Immature granulocytes/100 WBC (Bld) 0.300 % 0.0-0.9 [facility] Comment on above: IG% - Immature Granu locytes (promyelocytes, myelocytes and metamyelocytes) > 1% indicates that a LEFT SHIFT is Present. Laboratory - Chemistry and C hemistry - challengeOrdered By: Giselle Paredes on 08-09-2024 AST [Catalytic activity/Vol] 22 U/L <32 [facility] MCV (mean corpuscular volume ) determinationOrdered By: Giselle Paredes on 08-09-2024 MCV (RBC) [Entitic vol] 88.1 fL 81-99 [facility] Mean corpuscular hemoglobin (MCH) determinationOrdered By: Giselle Paredes on 08-09-2024 MCH (RBC) [Entitic mass] 29.7 pg 27.0-32.0 [facility] Mean corpuscular hemoglobin concentration (MCHC) determinationOrdered By: Giselle Paredes on 08-09-2024 MCHC (RBC) [Mass/Vol] 33.7 g/dL 32-36 [facility] Mean platelet volume determi nationOrdered By: Giselle Paredes on 08-09-2024 Platelet mean volume (Bld) [Entitic vol] 9.3 fL 6.2-12.0 [facility] Monocyte percentageOrdered B y: Giselle Paredes on 08-09-2024 Monocytes/100 WBC (Bld) 10.3 % High 0-10 [facility] Neutrophil percentageOrdered By: Giselle Paredes on 08-09-2024 Neutrophils/100 WBC (Bld) 57.1 % 47-70 [facility] Nucleated red blood cell per centageOrdered By: Giselle Paredes on 08-09-2024 Nucleated RBC/100 WBC (Bld) [Ratio] 0 % 0-5 [facility] Platelet countOrdered By: Calderon Paredes on 08-09-2024 Platelets (Bld) [#/Vol] 291 10*3/uL 150-450 [facility] Potassium measurement (mass/ volume)Ordered By: Giselle Paredes on 08-09-2024 Potassium (Unsp spec) [Mass/Vol] 4.0 mmol/L 3.3-5.1 [facility] Comment on above: Hemolysis present, R esults could be affected. RBC Auto (Bld) [#/Vol]Ordere d By: Giselle Paredes on 08-09-2024 RBC (Bld) [#/Vol] 4.64 10*6/uL 4.2-5.4 [facility] Serum creatinine measurement (mass/volume)Ordered By: Giselle Paredes on 08-09-2024 Creatinine [Mass/Vol] 0.89 mg/dL 0.70-1.20 [facility] Serum globulin measurementOr dered By: Giselle Paredes on 08-09-2024 Globulin (S) [Mass/Vol] 2.7 g/dL 2.2-4.2 [facility] Serum glucose measurement (m ass/volume)Ordered By: Giselle Paredes on 08-09-2024 Glucose [Mass/Vol] 95 mg/dL 70-99 [facility] Serum or plasma alanine henry otransferase (ALT) measurementOrdered By: Giselle Paredes on 08-09-2024 ALT [Catalytic activity/Vol] 13 U/L <35 [facility] Serum or plasma albumin jer urement (mass/volume)Ordered By: Giselle Paredes on 08-09-2024 Albumin [Mass/Vol] 4.4 g/dL 3.4-4.8 [facility] Serum or plasma albumin/glob ulin mass ratioOrdered By: Giselle Paredes on 08-09-2024 Albumin/Globulin [Mass ratio] 1.6 {ratio} 0.9-2.4 [facility] Serum or plasma alkaline carmen sphatase measurementOrdered By: Giselle Paredes on 08-09-2024 ALP [Catalytic activity/Vol] 45 U/L 35-104 [facility] Serum or plasma calcium jer urement (mass/volume)Ordered By: Giselle Paredes on 08-09-2024 Calcium [Mass/Vol] 9.1 mg/dL 7.6-11.0 [facility] Serum or plasma urea nitroge n measurement (mass/volume)Ordered By: Giselle Paredes on 08-09-2024 Urea nitrogen [Mass/Vol] 24 mg/dL High 4-19 [facility] Sodium levelOrdered By: Tomasa Paredes on 08-09-2024 Sodium [Moles/Vol] 137 mmol/L 133-145 [facility] TSH DL <= 0.005 mIU/L QnOrde red By: Giselle Reggie on 08-09-2024 TSH Qn 2.160 uIU/mL 0.300-4.200 [facility] Total proteinOrdered By: Stephenie lyndon Reggie on 08-09-2024 Protein [Mass/Vol] 7.0 g/dL 5.9-8.4 [facility] White blood cell (WBC) count Ordered By: Giselle Paredes on 08-09-2024 WBC (Bld) [#/Vol] 8.9 10*3/uL 4.4-11.0 [facility] CNOVon 07-21-2024 CNOV Office Visit (OBGYWM) -------- MARLINE MABRY ([id number]) 1945 F Date Time Provider Department 07/21/24 10:20 AM DINA MAYA OBGYWNico During your visit today, we recorded the following information about you: Blood pressure Weight Height 132/84 73.9 kg 1.6 m Dina Maya MD 07/21/2024 11:02 AM Signed Felipa is a 78 year old who presents for an annual gynecologic exam without complaints. Postmenopausal: yes Still get period: No Menopause symptoms: None Number of lifetime partners: 2 control frequency: Never HPV vaccine: No; Last pap smear: 2011 normal History of abnormal pap: No, all prior PAP smears have been normal Bothersome pelvic pain: No OB History Gravida3 Para3 Term3 Preterm0 AB0 Living3 SAB0 IAB0 Ectopic0 Multiple0 Live Births0 Comment: Menarche at age 14. [employer] 27. 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 CATARACT EXTRACTION HX Bilateral 2015 LAPS SURG CHOLECYSTECTOMY W/CHOLANGIOGRAPHY 02/12/2006 MASTEC,MOD RADICAL 12/20/2003 left REDUCTION OF LARGE BREAST 12/20/2003 right REPAIR FIRST ABDOMINAL WALL HERNIA Hernia repair, incisional SKIN BX, 1 LESION 2022 [place] and back- skin cancer THYROIDECTOMY TOTAL/COMPLETE 08/12/2005 FAMILY HISTORY Problem Relation Age of Onset Thyroid Mother graves disease Heart Father Hypertension Father Stroke Father Heart Brother Thyroid Maternal Grandmother graves disease Cancer Maternal Grandfather lung Diabetes Paternal Grandfather adult onset Thyroid Daughter graves disease other (No family hx. of breast cancer) Other SOCIAL HISTORY Social History Tobacco Use Smoking status: Never Smokeless tobacco: Never Vaping Use Vaping status: Never Used Substance Use Topics Alcohol use: No Drug use: No REVIEW OF SYSTEMS Abdomen: No abdominal pain, nausea, vomiting, diarrhea, or constipation. No bloating, early satiety, indigestion, or increased flatulence. Bladder: No dysuria, gross hematuria, urinary frequency, urinary urgency, or incontinence Breast: no changes Allergies and current medication updated:Yes SENSITIVE EXAM: The sensitive examination was discussed with the Patient or Patient's Authorized Mold Holder. As applicable, any other physician, advance practice provider, medical student, or other health professional student that will be observing or involved in the sensitive examination for educational or training purposes was discussed with the Patient or Authorized Mold Holder. The Patient or Authorized Mold Holder has agreed to proceed with the sensitive examination. (Sensitive examination includes inspection and/or palpation of the breasts, pelvis, prostate and anorectal regions). EXAM: There were no vitals taken for this visit. GENERAL: pleasant, female in no apparent distress HEENT: Normocephalic, atraumatic, mucus membranes moist, and no lesions NECK: Supple, full range of motion, no adenopathy, and thyroid normal BREAST: right, non-tender, no dominant mass, normal nipple-areolar complex, no lymphadenopathy, no nipple discharge, and left absent, no masses noted around implant or skin changes CHEST: Normal inspiratory effort PELVIC: normal Bartholin's glands, urethra, [place]field's glands, no vulvar lesions, no cervical lesions, good vaginal support, physiologic discharge present, normal appearing perineal body and perianal region, thin white skin around vulva/perineum w/ some hypopitmentation, no ulcerations/fissur es BIMANUAL: uterus normal size, shape and consistency, no adnexal masses, and non-tender RECTOVAGINAL: deferred. NEURO: alert and oriented x3,exam grossly non-focal EXTREMITIES: normal ASSESSMENT/PLAN: 1) Health maintenance: Pap/HPV screening no longer needed Pap/HPV up to date. other healt screens per PCP suspect lichen sclerosis but patient denies symptoms/problems 2) Follow up one year or sooner as needed Dina Maya MD Allergies As of Date: 07/21/2024 (No Known Allergies) Date Reviewed: 07/21/2024 Reviewed by: Dina Maya MD - Fully Assessed Reason for Visit: Yearly Exam [187] Primary Visit Diagnosis:HYDROSTATIC TESTER exam for high-risk Medicare patient [Z91.89] Other Visit Diagn (more content not included)... Normal [facility] Breast imaging reportOrdered By: Dameon Cain on 06-16-2024 Study report [facility] Imaging Services [address] [place] [address] SCRN MAMM (CAD)W/OLEGARIO BILAT MR#: [id number] Acct: [id number] Name: MARLINE MABRY Rep #: [id number] : 1945 F 78 From: Jose Ramon Cian MD PCP: Dr. iNthin Brandon MD Status: [facility] Study:SCRN MAMM (CAD)W/OLEGARIO BILAT Date of Exa m: 06/16/24 Exam# [id number] Ordering Dr: Prasanna Brandon MD EXAM: SCRN MAMM (CAD)W/OLEGARIO BILAT DATE: 06/16/2024 CLINICAL HISTORY: F, Age 78 y/o , ANNUAL Personal history of breast cancer. Prior left mastectomy with left tram flap reconstruction. Right breast reduction surgery. BREAST CANCER RISK ASSESSMENT: Not assessed. TECHNIQUE: Bilateral screening digital breast tomosynthesis with 2D and 3D images. Computeraided detection. COMPARISON: Prior exam(s) dated June 16, 2023.. FINDINGS: TISSUE DENSITY: The breast tissue is almost entirely fatty. Bilateral Breast Mammographic Findings: No significant masses, calcifications or other abnormalities are identified. No suspicious masses, areas of developing architectural distortion, or suspicious calcifications. There has been no significant interval change. BI/SCRN MAMM (CAD)W/OLEGARIO BILAT IMPRESSION: OVERALL FINAL ASSESSMENT: BIRADS 2 BENIGN FINDING RECOMMENDATION: Routine annual follow-up in 1 Year A letter with findings and recommendations will be mailed to the patient. Reading Location: [place] [address] CC: Dr. Nithin Brandon MD ~ Stock Clerk: Signed [facility] SCRN MAMM (CAD)W/OLEGARIO BILATo n 06-16-2024 SCRN MAMM (CAD)W/OLEGARIO BILAT [facility] Imaging Services [address] [place], [place] [id number] SCRN MAMM (CAD)W/OLEGARIO BILAT MR#: [id number] Acct: [id number] Name: MARLINE MABRY Rep #: [id number] : 1945 F 78 From: Dameon sabillon MD PCP: Dr. Nithin Brandon MD Status: [facility] Study: SCRN MAMM (CAD)W/OLEGARIO BILAT Date of Exam: 05/26 05/18 Exam# [id number] Ordering Dr: Nithin Brandon EXAM: SCRN MAMM (CAD)W/OLEGARIO BILAT DATE: 06/16/2024 CLINICAL HISTORY: F, Age 78 y/o , ANNUAL Personal history of breast cancer. Prior left mastectomy with left tram flap reconstruction. Right breast reduction surgery. BREAST CANCER RISK ASSESSMENT: Not assessed. TECHNIQUE: Bilateral screening digital breast tomosynthesis with 2D and 3D images. Computer aided detection. COMPARISON: Prior exam(s) dated June 16, 2023.. FINDINGS: TISSUE DENSITY: The breast tissue is almost entirely fatty. Bilateral Breast Mammographic Findings: No significant masses, calcifications or other abnormalities are identified. No suspicious masses, areas of developing architectural distortion, or suspicious calcifications. There has been no significant interval change. BI/SCRN MAMM (CAD)W/OLEGARIO BILAT IMPRESSION: OVERALL FINAL ASSESSMENT: BIRADS 2 BENIGN FINDING RECOMMENDATION: Routine annual follow-up in 1 Year A letter with findings and recommendations will be mailed to the patient. Reading Location: [place] [address] CC: Dr. Nithin Brandon MD Stock Clerk: Signed Normal [facility] Basic Metabolic Profile (BMP )on 03-22-2024 BUN/CRE 33.3 RATIO High 10-20 [facility] Comment on above: Performed By: #### L 500.4100, L501.0900, L500.2500 ####[facility] [address] [place], [address] CA,Total 9.4 mg/dL Normal 8.5-10.1 [facility] Comment on above: Performed By: #### L 500.4100, L501.0900, L500.2500 ####[facility] [address] [place], [address] Chloride [Moles/Vol] 102 mmol/L Normal 98-107 [facility] Comment on above: Performed By: #### L 500.4100, L501.0900, L500.2500 ####[facility] [address] [place], [address] CO2 [Moles/Vol] 26.0 mmol/L Normal 21.0-32.0 [facility] Comment on above: Performed By: #### L 500.4100, L501.0900, L500.2500 ####[facility] [address] [place], [address] Creatinine [Mass/Vol] 0.81 mg/dL Normal 0.55-1.02 [facility] Comment on above: Result Comment: The validity of the calculated GFR GFRAA in patients over 70 years has not been determined. Clinical correlation is essential. Performed By: #### L 500.4100, L501.0900, L500.2500 ####[facility] [address] [place], [address] EST GFR - AA 88 mL/min Normal >60 [facility] Comment on above: Result Comment: Afri can Tunisian GFR Calc Performed By: #### L 500.4100, L501.0900, L500.2500 ####[facility] [address] [place], [address] GAP 9 Normal 5-15 [facility] Comment on above: Performed By: #### L 500.4100, L501.0900, L500.2500 ####[facility] [address] [place], [address] GFR/1.73 sq M.predicted among non-blacks MDRD (S/P/Bld) [Vol rate/Area] 73 mL/min/{1.73_m2} Normal >60 [facility] Comment on above: Result Comment: Non- GFR Calc Performed By: #### L 500.4100, L501.0900, L500.2500 ####[facility] [address] [place], [address] Glucose [Mass/Vol] 84 mg/dL Normal 74-106 [facility] Comment on above: Performed By: #### L 500.4100, L501.0900, L500.2500 ####[facility] [address] [place], [address] Potassium [Moles/Vol] 3.8 mmol/L Normal 3.5-5.1 [facility] Comment on above: Performed By: #### L 500.4100, L501.0900, L500.2500 ####[facility] [address] [place], [address] Sodium [Moles/Vol] 137 mmol/L Normal 136-145 [facility] Comment on above: Performed By: #### L 500.4100, L501.0900, L500.2500 ####[facility] [address] [place], [address] Urea nitrogen [Mass/Vol] 27 mg/dL High 7-18 [facility] Comment on above: Performed By: #### L 500.4100, L501.0900, L500.2500 ####[facility] [address] [place], [address] Blood urea nitrogen (BUN)/cr eatinine ratioOrdered By: Martina Doll on 03-22-2024 Urea nitrogen/Creatinine [Mass ratio] 33.3 mg/mg High 10-20 [facility] Carbon dioxide measurementOr dered By: Martina Doll on 03-22-2024 CO2 [Moles/Vol] 26.0 mmol/L 21.0-32.0 [facility] Chloride measurementOrdered By: Martina Doll on 03-22-2024 Chloride [Moles/Vol] 102 mmol/L 98-107 [facility] Estimated glomerular filtrat ion rate (GFR) AmericanOrdered By: Martina Doll on 03-22-2024 Estimated GFR (MDRD) Amer 88 mL/min >60 [facility] Comment on above: GFR Calc Glomerular filtration rate ( GFR) estimationOrdered By: Martina Doll on 03-22-2024 Estimated GFR (MDRD) Non-Af Amer 73 mL/min >60 [facility] Comment on above: Non- GFR Calc Glucose measurementOrdered B y: Martina Doll on 03-22-2024 Glucose [Mass/Vol] 84 mg/dL 74-106 [facility] High density lipoprotein (HD L) measurementOrdered By: Martina Doll on 03-22-2024 Cholesterol in HDL [Mass/Vol] 62 mg/dL >40 [facility] Comment on above: The drugs N-Acetylcy steine and Metamizole may falsely depress this assay. Reference Range HDL <40 mg/dL Low HDL Cholesterol HDL >or= 60 mg/dL High HDL Cholesterol Lipid Profileon 03-22-2024 Cholesterol [Mass/Vol] 246 mg/dL High 200 [facility] Comment on above: Result Comment: <200 mg/dL Desirable 200-240 mg/dL Borderline >240 mg/dL High Risk Performed By: #### L 500.4100, L501.0900, L500.2500 ####[facility] [address] [place], [address] Cholesterol in HDL [Mass/Vol] 62 mg/dL Normal [facility] Comment on above: Result Comment: The drugs N-Acetylcysteine and Metamizole may falsely depress this assay. Reference Range HDL <40 mg/dL Low HDL Cholesterol HDL >or= 60 mg/dL High HDL Cholesterol Performed By: #### L 500.4100, L501.0900, L500.2500 ####[facility] [address] [place], [address] Cholesterol in LDL [Mass/Vol] 149 mg/dL High 0-130 [facility] Comment on above: Performed By: #### L 500.4100, L501.0900, L500.2500 ####[facility] [address] [place], [address] Cholesterol in VLDL [Mass/Vol] 35 mg/dL Normal 5-40 [facility] Comment on above: Performed By: #### L 500.4100, L501.0900, L500.2500 ####[facility] [address] [place], [address] Triglyceride [Mass/Vol] 175 mg/dL Normal [facility] Comment on above: Result Comment: The drugs N-Acetylcysteine and Metamizole may falsely depress this assay. Serum Triglycerides Reference Interval Normal <150 mg/dL Borderline high 150 - 199 mg/dL High 200 - 499 mg/dL Very High > or = 500 mg/dL Performed By: #### L 500.4100, L501.0900, L500.2500 ####[facility] [address] [place], [address] Low density lipoprotein (LDL ) cholesterol measurementOrdered By: Martina Doll on 03-22-2024 Cholesterol in LDL [Mass/Vol] 149 mg/dL High 0-130 [facility] Potassium measurementOrdered By: Martina Doll on 03-22-2024 Potassium [Moles/Vol] 3.8 mmol/L 3.5-5.1 [facility] Protein+Creatinine Ratio,Uri neon 03-22-2024 PROT:CRE RATIO 156 mg/g CRE Normal 0-200 [facility] Comment on above: Performed By: #### L 500.4100, L501.0900, L500.2500 ####[facility] [address] [place], [address] Protein (U) [Mass/Vol] 21.2 mg/dL High <11.9 [facility] Comment on above: Performed By: #### L 500.4100, L501.0900, L500.2500 ####[facility] [address] [place], [address] UR CREAT 136.00 mg/dL Normal NO RANGE EST. [facility] Comment on above: Performed By: #### L 500.4100, L501.0900, L500.2500 ####[facility] [address] [place], [address] Protein/Creatinine (U) [Mass ratio]Ordered By: Martina Doll on 03-22-2024 Urine Protein/Creatinine Ratio 156 mg/g CRE 0-200 [facility] Random urine protein measure mentOrdered By: Martina Doll on 03-22-2024 Protein (U) [Mass/Vol] 21.2 mg/dL High 0.0-11.8 [facility] Serum anion gap measurementO rdered By: Martina Doll on 03-22-2024 Anion gap [Moles/Vol] 9 mmol/L 5-15 [facility] Serum or plasma calcium jer urement (mass/volume)Ordered By: Martina Doll on 03-22-2024 Calcium [Mass/Vol] 9.4 mg/dL 8.5-10.1 [facility] Serum or plasma cholesterol measurement (mass/volume)Ordered By: Martina Doll on 03-22-2024 Cholesterol [Mass/Vol] 246 mg/dL High <200 [facility] Comment on above: <200 mg/dL Desirable 200-240 mg/dL Borderline >240 mg/dL High Risk Serum or plasma creatinine m easurement (mass/volume)Ordered By: Martina Doll on 03-22-2024 Creatinine [Mass/Vol] 0.81 mg/dL 0.55-1.02 [facility] Comment on above: The validity of the calculated GFR & GFRAA in patients over 70 years has not been determined. Clinical correlation is essential. Serum or plasma urea nitroge n measurement (mass/volume)Ordered By: Martina Doll on 03-22-2024 Urea nitrogen [Mass/Vol] 27 mg/dL High 7-18 [facility] Sodium levelOrdered By: Martina Doll on 03-22-2024 Sodium [Moles/Vol] 137 mmol/L 136-145 [facility] Triglycerides measurementOrd ered By: Martina Doll on 03-22-2024 Triglyceride [Mass/Vol] 175 mg/dL <199 [facility] Comment on above: The drugs N-Acetylcy steine and Metamizole may falsely depress this assay.Serum Triglycerides Reference Interval Normal <150 mg/dL Borderline high 150 - 199 mg/dL High 200 - 499 mg/dL Very High > or = 500 mg/dL Urine creatinine measurement (mass/volume)Ordered By: Martina Doll on 03-22-2024 Creatinine (U) [Mass/Vol] 136.00 mg/dL NO RANGE EST. [facility] Very low density lipoprotein (VLDL) cholesterol measurementOrdered By: Martina Doll on 03-22-2024 VLDL Cholesterol 35 mg/dL 5-40 [facility] Comprehensive Metabolic Prof ilon 01-08-2024 Albumin [Mass/Vol] 3.5 g/dL Normal 3.2-5.0 [facility] Comment on above: Performed By: #### L 506.1000, L500.4050, L501.9520, L506.0400 ####[facility] [address] [place], [address] Albumin/Globulin [Mass ratio] 1.1 {ratio} Normal 0.9-2.4 [facility] Comment on above: Performed By: #### L 506.1000, L500.4050, L501.9520, L506.0400 ####[facility] [address] [place], [address] ALK P 40 U/L Low 45-117 [facility] Comment on above: Performed By: #### L 506.1000, L500.4050, L501.9520, L506.0400 ####[facility] [address] [place], [address] ALT [Catalytic activity/Vol] 23 U/L Normal 13-56 [facility] Comment on above: Performed By: #### L 506.1000, L500.4050, L501.9520, L506.0400 ####[facility] [address] [place], [address] AST [Catalytic activity/Vol] 13 U/L Low 15-37 [facility] Comment on above: Performed By: #### L 506.1000, L500.4050, L501.9520, L506.0400 ####[facility] [address] [place], [address] Bilirubin [Mass/Vol] 0.40 mg/dL Normal 0.20-1.00 [facility] Comment on above: Result Comment: For patients on eltrombopag therapy, use of Dimension [place] TBIL is not recommended. Performed By: #### L 506.1000, L500.4050, L501.9520, L506.0400 ####[facility] [address] [place], [address] BUN/CRE 30.9 RATIO High 10-20 [facility] Comment on above: Performed By: #### L 506.1000, L500.4050, L501.9520, L506.0400 ####[facility] [address] [place], [address] CA,Total 9.3 mg/dL Normal 8.5-10.1 [facility] Comment on above: Performed By: #### L 506.1000, L500.4050, L501.9520, L506.0400 ####[facility] [address] [place], [address] Chloride [Moles/Vol] 106 mmol/L Normal 98-107 [facility] Comment on above: Performed By: #### L 506.1000, L500.4050, L501.9520, L506.0400 ####[facility] [address] [place], [address] CO2 [Moles/Vol] 32.0 mmol/L Normal 21.0-32.0 [facility] Comment on above: Performed By: #### L 506.1000, L500.4050, L501.9520, L506.0400 ####[facility] [address] [place], [address] Creatinine [Mass/Vol] 0.71 mg/dL Normal 0.55-1.02 [facility] Comment on above: Result Comment: The validity of the calculated GFR GFRAA in patients over 70 years has not been determined. Clinical correlation is essential. Performed By: #### L 506.1000, L500.4050, L501.9520, L506.0400 ####[facility] [address] [place], [address] EST GFR - AA 102 mL/min Normal >60 [facility] Comment on above: Result Comment: Afri can [place] GFR Calc Performed By: #### L 506.1000, L500.4050, L501.9520, L506.0400 ####[facility] [address] [place], [address] GAP 2 Low 5-15 [facility] Comment on above: Performed By: #### L 506.1000, L500.4050, L501.9520, L506.0400 ####[facility] [address] [place], [address] GFR/1.73 sq M.predicted among non-blacks MDRD (S/P/Bld) [Vol rate/Area] 85 mL/min/{1.73_m2} Normal >60 [facility] Comment on above: Result Comment: Non- GFR Calc Performed By: #### L 506.1000, L500.4050, L501.9520, L506.0400 ####[facility] [address] [place], [address] Globulin (S) [Mass/Vol] 3.3 g/dL Normal 2.2-4.[address] [facility] Comment on above: Performed By: #### L 506.1000, L500.4050, L501.9520, L506.0400 ####[facility] [address] [place], [address] Glucose [Mass/Vol] 92 mg/dL Normal 74-106 [facility] Comment on above: Performed By: #### L 506.1000, L500.4050, L501.9520, L506.0400 ####[facility] [address] [place], [address] Potassium [Moles/Vol] 3.8 mmol/L Normal 3.5-5.1 [facility] Comment on above: Performed By: #### L 506.1000, L500.4050, L501.9520, L506.0400 ####[facility] [address] [place], [address] Sodium [Moles/Vol] 141 mmol/L Normal 136-145 [facility] Comment on above: Performed By: #### L 506.1000, L500.4050, L501.9520, L506.0400 ####[facility] [address] [place], [address] T PROT 6.8 g/dL Normal 6.4-8.2 [facility] Comment on above: Performed By: #### L 506.1000, L500.4050, L501.9520, L506.0400 ####[facility] [address] [place], [address] Urea nitrogen [Mass/Vol] 22 mg/dL High 7-18 [facility] Comment on above: Performed By: #### L 506.1000, L500.4050, L501.9520, L506.0400 ####[facility] [address] [place], [address] T4 Free Directon 01-08-2024 T4 FREE DIRECT 1.49 ng/dL High 0.76-1.46 [facility] Comment on above: Performed By: #### L 506.1000, L500.4050, L501.9520, L506.0400 ####[facility] [address] [place], [address] Thyroid Stim Hormone (TSH)on 01-08-2024 TSH 1.150 uIU/mL Normal 0.358-3.740 [facility] Comment on above: Performed By: #### L 506.1000, L500.4050, L501.9520, L506.0400 ####[facility] [address] [place], [address] Vitamin D,25 Hydroxyon 01-07 Vitamin D 25-OH 33.9 ng/mL Normal [facility] Comment on above: Result Comment: Geena min D 25(OH) Status Range Deficiency <20 ng/mL (50nmol/L) Insufficiency 20 - 30 ng/mL (50 - 75 nmol/L) Sufficiency 30 - 100 ng/mL (75 - 250 nmol/L) Toxicity >100 ng/mL (>250 nmol/L) Performed By: #### L 506.1000, L500.4050, L501.9520, L506.0400 ####[facility] [address] [place], [address] Re-Evaluation - PT (1)on Re-Evaluation - PT (1) [facility] [address] [place] [address] / REEVALUATION / MEDICARE RECERTIFICATION PHYSICAL THERAPY MR#: [id number] Acct: [id number] Name: MARLINE MABRY Rep #: [id number] : 1945 78 From: Joey Guzman PT, Cert. T, [facility] Referring Dr.: Dr. Lake Campos MD Status:REG RCR Insurance: MEDICARE PART A B ANTHEM Re-Evaluation Intro: Dr. Lake Campos MD, It has been my pleasure to treat MARLINE MABRY over the last 17 visits for DORSALGIA ,SPONDYLOSIS. Please see the progress note below for an update on the physical therapy plan of care! Subjective Subjective: Patient able to do stand longer and do ADL Objective Objective/Function : *Patient will benefit from skilled PT to decrease pain back and WB activities due osteoporosis goals where addressed* POSTURE: mod thoracic kyphosis ,trunk flexed GAIT : reciprocal pattern forward posture PLAPTION:mild tender LS NEURO: denies paresthesia/tingli ng ,reflexes L3-4,L4-5,L5-S1 MMT: quads/hams 4/5 ,( peak force) hip flexion right 29.6,left 26.6,ankle 4/5 LUMBAR ROM: flexion mod loss ,extension severe loss ,side glides mod loss FLEXABILITY: hamstrings min tight HIP IR: 10 degrees Plan Plan Plan: PT INTERVENTIONS DLS,POSTURAL EX'S ,HIP STRENGTHENING , BLE FLEXABILITY AND ACTIVITY MODIFICATION Balance/Gait/Funct ional tests Balance/Special Test Scores Oswestry Low Back Score: 21 Goals Goals Goal 1:: Patient to be I with HEP for back Goal Time Frame: 4-6 Weeks Goal Progress: Progressing Goal 2:: Patient to improve lumbar ROM for function of recovery to put on shoes Goal Time Frame: 4-6 Weeks Goal Progress: Progressing Goal 3:: Patient to improve back oswestry score by 5 point to improve QOL and function. Goal Time Frame: 4-6 Weeks Goal 4:: Patient to demonstrate 50% improvement with walking/standing and ADLS Goal Time Frame: 4-6 Weeks Goal Progress: Progressing Goal 5:: Patient to improve peak force hips by 5-10# to improve function Goal Time Frame: 4-6 Weeks Goal Progress: Progressing Anticipated Interventions Anticipated Interventions Patient/Client Instruction: Educate patient on: Condition and Plan of Care For the Purpose of:: To decrease pain, To increase ROM, To improve muscle performance and motor function, To improve ability to perform ADL's, To increase tolerance to activity/condition /position, To improve ability of physical actions for home/community/wor k/leisure, To improve health of tissue, To increase flexibility/ROM, To improve endurance, To reduce risk of recurrence and To improve tolerance to ADL's Therapeutic Exercise to Include: Strength training, Endurance training, Postural training, Flexibilty training and Dynamic Lumbar Stabilization Comment: HIPS For the Purpose of:: To decrease pain, To increase ROM, To improve muscle performance and motor function, To improve ability to perform ADL's, To increase tolerance to activity/condition /position, To improve ability of physical actions for home/community/wor k/leisure, To improve health of tissue, To decrease soft tissue restriction, To increase flexibility/ROM and To reduce risk of recurrence Re-Evaluation Ending Re-evaluation ending: Please do not hesitate to contact me at [phone] by phone or if you have questions or concerns regarding this new plan of care! Sincerely, Joey Guzman PT, Cert MDT, OCS 12/25/23 7898 CC: Dr. Martina Doll MD; Dr. Lake Campos MD STIVEN Signed For Medicare only, by signing this I certify the plan of care. __ Physicians Signature Date Normal [facility] Re-Evaluation - PT (1)on Re-Evaluation - PT (1) [facility] [address] [place] [address] / REEVALUATION / MEDICARE RECERTIFICATION PHYSICAL THERAPY MR#: [id number] Acct: [id number] Name: MARLINE MABRY Rep #: [id number] : 1945 78 From: Joey Gumzan PT, Cert. T, OCS Referring Dr.: Dr. Lake Campos MD Status:REG RCR Insurance: MEDICARE PART A B ANTHEM Re-Evaluation Intro: Dr. Lake Campos MD, It has been my pleasure to treat MARLINE MABRY over the last 9 visits for DORSALGIA ,SPONDYLOSIS. Please see the progress note below for an update on the physical therapy plan of care! Subjective Subjective: Pain is some better ,when I walk out of here becomes stiff Would like to progress to machines but not to much weight Objective Objective/Function : *Patient will benefit from skilled PT to decrease pain back thus goals where addressed* POSTURE: mod thoracic kyphosis ,trunk flexed GAIT : reciprocal pattern forward posture PLAPTION:mild tender LS NEURO: denies paresthesia/tingli ng ,reflexes L3-4,L4-5,L5-S1 MMT: quads/hams 4/5 ,( peak force) hip flexion right 21.4,left 22.7,ankle 4/5 LUMBAR ROM: flexion mod loss ,extension severe loss ,side glides mod loss FLEXABILITY: hamstrings min tight HIP IR: 10 degrees Plan Plan Plan: PT INTERVENTIONS DLS,POSTURAL EX'S ,HIP STRENGTHENING , BLE FLEXABILITY AND ACTIVITY MODIFICATION Balance/Gait/Funct ional tests Balance/Special Test Scores Oswestry Low Back Score: 25 Goals Goals Goal 1:: Patient to be I with HEP for back Goal Time Frame: 4-6 Weeks Goal Progress: Progressing Goal 2:: Patient to improve lumbar ROM for function of recovery to put on shoes Goal Time Frame: 4-6 Weeks Goal Progress: Progressing Goal 3:: Patient to improve back oswestry score by 5 point to improve QOL and function. Goal Time Frame: 4-6 Weeks Goal 4:: Patient to demonstrate 50% improvement with walking/standing and ADLS Goal Time Frame: 4-6 Weeks Goal Progress: Progressing Goal 5:: Patient to improve peak force hips by 5-10# to improve function Goal Time Frame: 4-6 Weeks Anticipated Interventions Anticipated Interventions Patient/Client Instruction: Educate patient on: Condition and Plan of Care For the Purpose of:: To decrease pain, To increase ROM, To improve muscle performance and motor function, To improve ability to perform ADL's, To increase tolerance to activity/condition /position, To improve ability of physical actions for home/community/wor k/leisure, To improve health of tissue, To increase flexibility/ROM, To improve endurance, To reduce risk of recurrence and To improve tolerance to ADL's Therapeutic Exercise to Include: Strength training, Endurance training, Postural training, Flexibilty training and Dynamic Lumbar Stabilization Comment: HIPS For the Purpose of:: To decrease pain, To increase ROM, To improve muscle performance and motor function, To improve ability to perform ADL's, To increase tolerance to activity/condition /position, To improve ability of physical actions for home/community/wor k/leisure, To improve health of tissue, To decrease soft tissue restriction, To increase flexibility/ROM and To reduce risk of recurrence Re-Evaluation Ending Re-evaluation ending: Please do not hesitate to contact me at [phone] by phone or if you have questions or concerns regarding this new plan of care! Sincerely, Joey Guzman PT, Cert MDT, OCS 11/27/23 1317 CC: Dr. Martina Doll MD; Dr. Lake Campos MD STIVEN Signed For Medicare only, by signing this I certify the plan of care. __ Physicians Signature Date Normal [facility] Inital Evaluation (1) - PTon 10-29-2023 Inital Evaluation (1) - PT [facility] [address] [place] [address] / REHABILITATION SERVICES INITIAL EVALUATION MR#: [id number] Acct: [id number] Name: MARLINE MABRY Rep #: [id number] : 1945 78 From: Joey Guzman PT, Cert. T, OCS Referring Dr.: Dr. Lake Campos MD Status: REG RC R Insurance: MEDICARE PART A B ANTHEM Patient's Visit Information Visit Information Visit Information: MARLINE MABRY is a 78 year old F referred to Physical Therapy by Dr. Lake Campos MD with a diagnosis of DORSALGIA ,SPONDYLOSIS. Date of Evaluation: 10/29/23 Physical Therapist: Joey Guzman PT, Cert T, OCS Visit Plan Frequency: 2x /Week Duration: 4 Weeks Plan: PT INTERVENTIONS DLS,POSTURAL EX'S ,HIP STRENGTHENING , BLE FLEXABILITY AND ACTIVITY MODIFICATION Subjective Subjective: This 78 y/o female presents to physical therapy with low back pain. Patient has lumbar pain for 18 years . Patient pain has got worse with increase pain with activity. Patient seen DR saravanan PT and DDD /osteoporosis. Patient pain worse walking/standing limited endurance bending and lifting . Alleviating factors sitting and rest. No medication. Patient has had bone density showing osteoporosis hip and osteopenia in spine. Coughing/sneezing -. Bowel/bladder - Denies paresthesia/tingli ng -. Sleeping okay. Bowel/bladder -. Pain causes deficits with ADLS walking. Goals to get stronger. SOCIAL: VOCATION:retired Pain Bilateral Back: Pain Intensity (Out of 10): 2 Pain Intensity Range: 10 Objective Objective: POSTURE: mod thoracic kyphosis ,trunk flexed GAIT : reciprocal pattern forward posture PLAPTION: tender LS NEURO: denies paresthesia/tingli ng ,reflexes L3-4,L4-5,L5-S1 MMT: quads/hams 4/5 ,( peak force) hip flexion right 17.1,left 18.7 ,ankle 4/5 LUMBAR ROM: flexion mod loss ,extension severe loss ,side glides mod loss FLEXABILITY: hamstrings min tight HIP IR: 10 degrees Special Tests L/S Slump test left side: Negative L/S Slump test right side: Negative L/S Left Straight Leg Raise: Negative L/S Right Straight Leg Raise: Negative Balance/Special Test Scores Oswestry Low Back Score: 30 Goals Goal 1:: Patient to be I with HEP for back Goal Time Frame: 4-6 Weeks Goal 2:: Patient to improve lumbar ROM for function of recovery to put on shoes Goal Time Frame: 4-6 Weeks Goal 3:: Patient to improve back oswestry score by 5 point to improve QOL and function. Goal Time Frame: 4-6 Weeks Goal 4:: Patient to demonstrate 50% improvement with walking/standing and ADLS Goal Time Frame: 4-6 Weeks Goal 5:: Patient to improve peak force hips by 5-10# to improve function Goal Time Frame: 4-6 Weeks Rehabilitation Potential Physical Therapy Diagnosis: This patient has lumbar pain with decrease posture ,weakness hips pain with walking and decrease lumbar rom thus benefit from skilled PT Rehabilitation Potential: Good Anticipated Interventions Patient/Client Instruction: Educate patient on: Condition and Plan of Care For the Purpose of:: To decrease pain, To increase ROM, To improve muscle performance and motor function, To improve ability to perform ADL's, To increase tolerance to activity/condition /position, To improve ability of physical actions for home/community/wor k/leisure, To improve health of tissue, To increase flexibility/ROM, To improve endurance, To reduce risk of recurrence and To improve tolerance to ADL's Therapeutic Exercise to Include: Strength training, Endurance training, Postural training, Flexibilty training and Dynamic Lumbar Stabilization Comment: HIPS For the Purpose of:: To decrease pain, To increase ROM, To improve muscle performance and motor function, To improve ability to perform ADL's, To increase tolerance to activity/condition /position, To improve ability of physical actions for home/community/wor k/leisure, To improve health of tissue, To decrease soft tissue restriction, To increase flexibility/ROM and To reduce risk of recurrence Text: Thank you for the opportunity to evaluate your patient. For Medicare and Medicare HMO plans, please review the plan of care and approve it. It will need to be FAXED BACK to us at [phone] for Medicare purposes. For Medicare only, by signing this I certify the plan of care. Please let me know if there are questions or concerns regarding this plan of care. Physician Signature: Date: ____ 10/29/23 1704 CC: Dr. Martina Doll MD; Dr. Lake Campos MD JLA Signed Normal [facility] Lumbar Spine 2 or 3 Viewson 10-17-2023 Lumbar Spine 2 or 3 Views [facility] Imaging Services [address] [place] [address] Lumbar Spine 2 or 3 Views MR#: [id number] Acct: [id number] Name: MARLINE MABRY Rep #: [id number] : 1945 F 78 From: Liu Fuller MD PCP: Dr. Martina Doll MD Status: [facility] CLI Study: Lumbar Spine 2 or 3 Views Date of Exam: Exam# [id number] Ordering Dr: Lake Campos MD [id number] STUDY: X-RAY - LUMBAR SPINE REASON FOR EXAM: Female, 78 years old. Back pain. TECHNIQUE: 2 view(s) of the lumbar spine were obtained. COMPARISON: None FINDINGS: Osteopenia. Normal lordosis. Mild dextroscoliosis. Normal vertebral alignment. Diffuse moderate lower thoracic and lumbosacral facet sclerosis. Diffuse intervertebral disc space narrowing with osteophyte formation, subchondral sclerosis and endplate irregularity most marked at L4-5. Vascular calcification and coils projected over the left abdomen. RAD/Lumbar Spine 2 or 3 Views IMPRESSION: Osteopenia with diffuse moderate lower thoracic and lumbosacral spondylosis, most marked at L4-5. Electronically Signed: Liu Fuller MD at 10:23 EDT Reading Location ID and State: [address] [place] [address] , Service support , CC: Dr. Martina Doll MD; Dr. Lake Campos MD Stock Clerk: Signed Normal [facility] Endocrinology Visit Reporton 10-16-2023 Endocrinology Visit Report [facility] [address] [place] [address] OFFICE VISIT Date of Service: 10/16/23 MR#: [id number] Acct: [id number] Name: MARLINE MABRY Rep #: [id number] : 1945 Provider: Nico Swanson Age/Sex: 78/F Location: [facility] Status: Signed Intake Vital Signs 01/10/23 13:29 10/16/23 13:50 Height 5 ft 4 in 5 ft 4 in Weight: 155 lb BMI 26.6 BP 124/79 H Blood Pressure Location Lt brachial Position Sitting Pulse 72 Pulse Source Monitor Pulse Oximetry (%) 96 Oxygen Delivery Method room air Intake Visit Reasons: 11 M , 08/04 Chief Complaint: Osteoporosis, hypothyroidism [employer] Required: No Accompanied by: Self Is patient in pain?: No Allergies No Known Allergies Allergy (Verified 10/16/23 13:53) Medications ???Medication ???Instructions ???Recorded ???Confirmed ???Type atenolol 25 mg tablet 25 mg PO DAILY 07/19/16 10/16/23 History zoledronic acid 5 mg/100 mL in See Rx Instructions .Route ONCE 12/26/22 10/16/23 Rx mannitol 5 %-water intravenous #100 mL piggybck Vascepa 1 gram capsule (icosapent 2 g (2 x 1 gram) PO BID #360 caps 01/28/23 10/16/23 Rx ethyl) levothyroxine 112 mcg tablet 112 mcg PO DAILY #90 tabs 02/06/23 10/16/23 Rx calcium carbonate 500 mg PO Q OTHER DAY 10/16/23 10/16/23 History cholecalciferol (vitamin D3) 25 25 mcg PO DAILY 10/16/23 10/16/23 History mcg (1,000 unit) capsule Have you fallen in the past year?: No PFSH Medical History Back pain Vitamin D deficiency Osteoporosis Mixed hyperlipidemia Obesity Fatty liver Postoperative primary hypothyroidism Thyroid disease Osteopenia Hearing problem Frequent headaches Breast lump UTI (urinary tract infection) Hypothyroidism (acquired) Liver disease Hypoglycemia High triglycerides High cholesterol HTN (hypertension) Chronic headaches Cataracts, bilateral Breast cancer Back problem Arthritis Seasonal allergies Surgical History H/O carpal tunnel repair Hx of cholecystectomy H/O thyroidectomy H/O hernia repair H/O mastectomy H/O tubal ligation Hx of tonsillectomy Family History Mother Thyroid disorder Cancer Father CVA (cerebral vascular accident) Heart disease Brother Heart disease Other H/O blood clots Myocardial infarction Social History Smoking Status: Never smoker second hand exposure: No alcohol intake: never substance use type: does not use what type of physical activity do you participate in: none HPI HPI Chief Complaint: Osteoporosis, hypothyroidism Details: MARLINE MABRY, is a 78 F who presents to the office today for follow up. She has hypothyroidism and is due for labs. She is taking levothyroxine 112 mcg. She has osteoporosis and she will be due for Reclast in November. She is due for vitamin D level. She received first Reclast infusion last year. She is complaining of lumbar back pain. ROS Const Constitutional: No anorexia, excessive sweating, malaise, night sweats, weight change or change in appetite Eyes Eyes: No change in vision ENT ENT: No hearing loss, nasal congestion or difficulty swallowing Cardio Cardiology: No chest pain at rest, excessive sweating, shortness of breath, dyspnea on exertion, irregular heart rhythm or palpitations Musc Musculoskeletal: Positive for back pain, numbness and tingling (right hand); No abnormal gait or joint pain Neuro Neurology: Positive for numbness and tingling (right hand); No abnormal gait or memory loss Psych Psychiatric: No change in appetite, No memory loss and No Thoughts of harming yourself/Others Resp Respiratory: No cough, chest congestion or shortness of breath Gastro GI: No abdominal pain, constipation, diarrhea or difficulty swallowing Genitourinary-Fema le: No burning urination Skin Skin: No hair loss in leg, itchy eyes, rash or skin ulcer Endo Endocrine: No excessive sweating or weight change Aller/Imm Allergy/Immunologi c: No itchy eyes Exam Const General: cooperative, healthy appearing, comfortable, no acute distress, well developed and not cushingoid Nutritional Appearance: well nourished Orientation: alert, awake and oriented x3 HENMT Head: normal to inspection Ears: hearing grossly normal bilaterally Nose: external nose normal Mouth: oral mucosae normal Eyes General: appearance normal, both eyes and all related structures Alignment and Position: alignment normal Periorbital: periorbital findings normal Eyelids: eyelids normal Conjunctivae: conjunctivae normal (more content not included)... Normal [facility] Absolute lymphocyte countOrd ered By: Martina Doll on 05-02-2023 Lymphocytes Auto (Unsp spec) [#/Vol] 2.59 10*3/uL 0.83-4.51 [facility] Automated lymphocyte count a s percentage of total leukocytesOrdered By: Martina Doll on 05-02-2023 Lymphocytes/100 WBC Auto (Unsp spec) 32.0 % 19-41 [facility] Basophil percentageOrdered B y: Martina Doll on 05-02-2023 Basophils/100 WBC (Bld) 0.5 % 0-1 [facility] Eosinophils/100 WBC (Bld) 2.2 % 0-5 [facility] Hemoglobin (Bld) [Mass/Vol] 13.8 g/dL 12.0-15.0 [facility] Monocytes/100 WBC (Bld) 10.5 % 0-10 [facility] [place] Neutrophils (Bld) [#/Vol] 4.4 10*3/uL 2.0-7.7 [facility] Neutrophils/100 WBC (Bld) 54.4 % 47-70 [facility] WBC (Bld) [#/Vol] 8.1 10*3/uL 4.4-11.0 [facility] Determination of erythrocyte mean corpuscular volume (MCV)Ordered By: Martina Doll on 05-02-2023 MCV (RBC) [Entitic vol] 89.2 fL 81-99 [facility] [place] Erythrocyte distribution wid th ratioOrdered By: Martina Doll on 05-02-2023 Erythrocyte distribution width (RBC) [Ratio] 14.0 % 11.6-14.6 [facility] Erythrocyte distribution wid th standard deviationOrdered By: Martina Doll on 05-02-2023 Erythrocyte distribution width (RBC) [Entitic vol] 45.4 fL 35.1-43.9 [facility] Erythrocyte sedimentation ra teOrdered By: Martina Doll on 05-02-2023 ESR (Bld) [Velocity] 3 mm/h 0-30 [facility] Hematocrit Auto (Bld) [Volum e fraction]Ordered By: Martina Doll on 05-02-2023 Hematocrit (Bld) [Volume fraction] 43.6 % 37-47 [facility] Immature granulocytes/100 WB C Auto (Bld)Ordered By: Martina Doll on 05-02-2023 Immature granulocytes/100 WBC (Bld) 0.400 % 0.0-0.9 [facility] Comment on above: IG% - Immature Granu locytes (promyelocytes, myelocytes and metamyelocytes) > 1% indicates that a LEFT SHIFT is Present. Laboratory - Hematology and Cell countsOrdered By: Martina Doll on 05-02-2023 MCH (RBC) [Entitic mass] 28.2 pg 27.0-32.0 [facility] MCHC (RBC) [Mass/Vol] 31.7 g/dL 32-36 [facility] Nucleated RBC/100 WBC (Bld) [Ratio] 0 % 0-5 [facility] Platelet mean volume (Bld) [Entitic vol] 9.9 fL 6.2-12.0 [facility] Platelets (Bld) [#/Vol] 312 10*3/uL 150-450 [facility] RBC Auto (Bld) [#/Vol]Ordere d By: Martina Doll on 05-02-2023 RBC (Bld) [#/Vol] 4.89 10*6/uL 4.2-5.4 [facility] Basophil percentageOrdered B y: [place] Campos on 12-26-2022 Bilirubin [Mass/Vol] 0.50 mg/dL 0.20-1.00 [facility] Comment on above: For patients on eltr ombopag therapy, use of Dimension [place] TBIL is not recommended. Chloride [Moles/Vol] 106 mmol/L 98-107 [facility] Glucose [Mass/Vol] 95 mg/dL 74-106 [facility] Potassium [Moles/Vol] 4.0 mmol/L 3.5-5.1 [facility] Protein [Mass/Vol] 7.1 g/dL 6.4-8.2 [facility] Sodium [Moles/Vol] 141 mmol/L 136-145 [facility] Laboratory - Chemistry and C hemistry - challengeOrdered By: [place] Campos on 12-26-2022 ALP [Catalytic activity/Vol] 60 U/L 45-117 [facility] ALT [Catalytic activity/Vol] 26 U/L 13-56 [facility] CO2 [Moles/Vol] 27.0 mmol/L 21.0-32.0 [facility] Free T4 [Mass/Vol] 1.39 ng/dL 0.76-1.46 [facility] Globulin (S) [Mass/Vol] 3.6 g/dL 2.2-4.[address] [facility] Urea nitrogen/Creatinine [Mass ratio] 27.5 mg/mg 10-20 [facility] No Panel InformationOrdered By: [place] Campos on 12-26-2022 Estimated GFR (MDRD) Amer 81 mL/min >60 [facility] Comment on above: GFR Calc Estimated GFR (MDRD) Non-Af Amer 67 mL/min >60 [facility] Comment on above: Non- GFR Calc Thyroid Stimulating Hormone (TSH) 1.46 uIU/mL 0.358-3.74 [facility] Vitamin D 25-Hydroxy 65.3 ng/mL [facility] Comment on above: Vitamin D 25(OH) Sta tus Range Deficiency <20 ng/mL (50nmol/L) Insufficiency 20 - 30 ng/mL (50 - 75 nmol/L) Sufficiency 30 - 100 ng/mL (75 - 250 nmol/L) Toxicity >100 ng/mL (>250 nmol/L) Serum or plasma albumin jer urement (mass/volume)Ordered By: [place] Campos on 12-26-2022 Albumin [Mass/Vol] 3.5 g/dL 3.2-5.0 [facility] Serum or plasma albumin/glob ulin mass ratioOrdered By: [place] Campos on 12-26-2022 Albumin/Globulin [Mass ratio] 1.0 {ratio} 0.9-2.4 [facility] Serum or plasma calcium jer urement (mass/volume)Ordered By: [place] Campos on 12-26-2022 Calcium [Mass/Vol] 9.5 mg/dL 8.5-10.1 [facility] Serum or plasma creatinine m easurement (mass/volume)Ordered By: [place] Campos on 12-26-2022 Creatinine [Mass/Vol] 0.87 mg/dL 0.55-1.02 [facility] Comment on above: The validity of the calculated GFR & GFRAA in patients over 70 years has not been determined. Clinical correlation is essential. Serum or plasma urea nitroge n measurement (mass/volume)Ordered By: [place] Campos on 12-26-2022 Urea nitrogen [Mass/Vol] 24 mg/dL 7-18 [facility] Thin prep Papanicolaou smear with manual screeningOrdered By: [place] Campos on 12-26-2022 Thin prep Papanicolaou smear with manual screening 19 U/L 15-37 [facility] Thin prep Papanicolaou smear with manual screening 8 5-15 [facility] Basophil percentageOrdered B y: Dr. Campos on 05-13-2022 Cholesterol [Mass/Vol] 283 mg/dL <200 [facility] Comment on above: <200 mg/dL Desirable 200-240 mg/dL Borderline >240 mg/dL High Risk Triglyceride [Mass/Vol] 173 mg/dL <199 [facility] [place] Comment on above: The drugs N-Acetylcy steine and Metamizole may falsely depress this assay.Serum Triglycerides Reference Interval Normal <150 mg/dL Borderline high 150 - 199 mg/dL High 200 - 499 mg/dL Very High > or = 500 mg/dL Laboratory - Chemistry and C hemistry - challengeOrdered By: Dr. Campos on 05-13-2022 Free T4 [Mass/Vol] 1.35 ng/dL 0.76-1.46 [facility] No Panel InformationOrdered By: Dr. Campos on 05-13-2022 Thyroid Stimulating Hormone (TSH) 1.16 uIU/mL 0.358-3.74 [facility] Vitamin D 25-Hydroxy 34.0 ng/mL [facility] Comment on above: Vitamin D 25(OH) Sta tus Range Deficiency <20 ng/mL (50nmol/L) Insufficiency 20 - 30 ng/mL (50 - 75 nmol/L) Sufficiency 30 - 100 ng/mL (75 - 250 nmol/L) Toxicity >100 ng/mL (>250 nmol/L) Serum or plasma cholesterol in HDL measurement (mass/volume)Ordered By: Dr. Campos on 05-13-2022 Cholesterol in HDL [Mass/Vol] 50 mg/dL >40 [facility] Comment on above: The drugs N-Acetylcy steine and Metamizole may falsely depress this assay. Reference Range HDL <40 mg/dL Low HDL Cholesterol HDL >or= 60 mg/dL High HDL Cholesterol Serum or plasma cholesterol in VLDL measurement (mass/volume)Ordered By: Dr. Campos on 05-13-2022 Cholesterol in VLDL [Mass/Vol] 35 mg/dL 5-40 [facility] Serum or plasma low density lipoprotein (LDL) cholesterol measurement (mass/volume)Ordered By: Dr. Campos on 05-13-2022 Cholesterol in LDL [Mass/Vol] 198 mg/dL 0-130 [facility] Absolute lymphocyte countOrd ered By: Dr. Campos on 02-08-2022 Lymphocytes Auto (Unsp spec) [#/Vol] 2.04 10*3/uL 0.83-4.51 [facility] Basophil percentageOrdered B y: Dr. Campos on 02-08-2022 Basophils/100 WBC (Bld) 0.3 % 0-1 [facility] [place] Bilirubin [Mass/Vol] 0.50 mg/dL 0.20-1.00 [facility] Comment on above: For patients on eltr ombopag therapy, use of Dimension [place] TBIL is not recommended. Chloride [Moles/Vol] 105 mmol/L 98-107 [facility] Eosinophils/100 WBC (Bld) 1.1 % 0-5 [facility] Glucose [Mass/Vol] 99 mg/dL 74-106 [facility] Neutrophils (Bld) [#/Vol] 3.8 10*3/uL 2.0-7.7 [facility] Neutrophils/100 WBC (Bld) 57.0 % 47-70 [facility] Potassium [Moles/Vol] 3.9 mmol/L 3.5-5.1 [facility] Protein [Mass/Vol] 7.0 g/dL 6.4-8.2 [facility] Sodium [Moles/Vol] 140 mmol/L 136-145 [facility] WBC (Bld) [#/Vol] 6.6 10*3/uL 4.4-11.0 [facility] Blood erythrocytes count (nu mber/volume)Ordered By: Dr. Campos on 02-08-2022 RBC (Bld) [#/Vol] 4.85 10*6/uL 4.2-5.4 [facility] Blood hemoglobin measurement (mass/volume)Ordered By: Dr. Campos on 02-08-2022 Hemoglobin (Bld) [Mass/Vol] 14.0 g/dL 12.0-15.0 [facility] Blood lymphocytes/100 leukoc ytesOrdered By: Dr. Campos on 02-08-2022 Lymphocytes/100 WBC (Bld) 31.0 % 19-41 [facility] Blood monocytes/100 leukocyt esOrdered By: Dr. Campos on 02-08-2022 Monocytes/100 WBC (Bld) 10.3 % 0-10 [facility] [place] Blood platelet mean volumeOr dered By: Dr. Campos on 02-08-2022 Platelet mean volume (Bld) [Entitic vol] 9.9 fL 6.2-12.0 [facility] Determination of erythrocyte mean corpuscular volume (MCV)Ordered By: Dr. Campos on 02-08-2022 MCV (RBC) [Entitic vol] 90.9 fL 81-99 [facility] [place] Hematocrit Auto (Bld) [Volum e fraction]Ordered By: Dr. Campos on 02-08-2022 Hematocrit (Bld) [Volume fraction] 44.1 % 37-47 [facility] Laboratory - Chemistry and C hemistry - challengeOrdered By: Dr. Campos on 12-16-2022 ALP [Catalytic activity/Vol] 70 U/L 45-117 [facility] ALT [Catalytic activity/Vol] 42 U/L 13-56 [facility] CO2 [Moles/Vol] 28.0 mmol/L 21.0-32.0 [facility] Cobalamin (Vitamin B12) [Mass/Vol] 432 pg/mL 211-911 [facility] Free T4 [Mass/Vol] 1.44 ng/dL 0.76-1.46 [facility] Globulin (S) [Mass/Vol] 3.3 g/dL 2.2-4.2 [facility] [place] Urea nitrogen/Creatinine [Mass ratio] 35.2 mg/mg 10-20 [facility] Laboratory - Hematology and Cell countsOrdered By: Dr. Campos on 02-08-2022 Erythrocyte distribution width (RBC) [Entitic vol] 43.9 fL 35.1-43.9 [facility] Erythrocyte distribution width (RBC) [Ratio] 13.2 % 11.6-14.6 [facility] Immature granulocytes/100 WBC (Bld) 0.300 % 0.0-0.9 [facility] Comment on above: IG% - Immature Granu locytes (promyelocytes, myelocytes and metamyelocytes) > 1% indicates that a LEFT SHIFT is Present. MCH (RBC) [Entitic mass] 28.9 pg 27.0-32.0 [facility] Nucleated RBC/100 WBC (Bld) [Ratio] 0.5 % 0-5 [facility] MCHC Auto (RBC) [Mass/Vol]Or dered By: Dr. Campos on 02-08-2022 MCHC (RBC) [Mass/Vol] 31.7 g/dL 32-36 [facility] No Panel InformationOrdered By: Dr. Campos on 02-08-2022 Estimated GFR (MDRD) Amer 99 mL/min >60 [facility] Comment on above: GFR Calc Estimated GFR (MDRD) Non-Af Amer 82 mL/min >60 [facility] Comment on above: Non- GFR Calc Thyroid Stimulating Hormone (TSH) 0.24 uIU/mL 0.358-3.74 [facility] Vitamin D 25-Hydroxy 26.9 ng/mL [facility] Comment on above: Vitamin D 25(OH) Sta tus Range Deficiency <20 ng/mL (50nmol/L) Insufficiency 20 - 30 ng/mL (50 - 75 nmol/L) Sufficiency 30 - 100 ng/mL (75 - 250 nmol/L) Toxicity >100 ng/mL (>250 nmol/L) Platelets bldOrdered By: Dr. Campos on 02-08-2022 Platelets (Bld) [#/Vol] 301 10*3/uL 150-450 [facility] Serum or plasma albumin jer urement (mass/volume)Ordered By: Dr. Campos on 02-08-2022 Albumin [Mass/Vol] 3.7 g/dL 3.2-5.0 [facility] Serum or plasma albumin/glob ulin mass ratioOrdered By: Dr. Campos on 02-08-2022 Albumin/Globulin [Mass ratio] 1.1 {ratio} 0.9-2.4 [facility] Serum or plasma calcium jer urement (mass/volume)Ordered By: Dr. Campos on 02-08-2022 Calcium [Mass/Vol] 9.5 mg/dL 8.5-10.1 [facility] Serum or plasma creatinine m easurement (mass/volume)Ordered By: Dr. Campos on 02-08-2022 Creatinine [Mass/Vol] 0.74 mg/dL 0.55-1.02 [facility] Comment on above: The validity of the calculated GFR & GFRAA in patients over 70 years has not been determined. Clinical correlation is essential. Serum or plasma ferritin sandy surement (mass/volume)Ordered By: Dr. Campos on 02-08-2022 Ferritin [Mass/Vol] 90 ng/mL 8252 [facility] Serum or plasma urea nitroge n measurement (mass/volume)Ordered By: Dr. Campos on 02-08-2022 Urea nitrogen [Mass/Vol] 26 mg/dL 7-18 [facility] Thin prep Papanicolaou smear with manual screeningOrdered By: Dr. Campos on 02-08-2022 Thin prep Papanicolaou smear with manual screening 24 U/L 15-37 [facility] Thin prep Papanicolaou smear with manual screening 7 5-15 [facility] Basophil percentageon 2021 Chloride [Moles/Vol] 106 mmol/L 98-107 [facility] Work Phone: Cholesterol [Mass/Vol] 287 mg/dL <200 [facility] Work Phone: Comment on above: <200 mg/dL Desirable 200-240 mg/dL Borderline >240 mg/dL High Risk Glucose [Mass/Vol] 83 mg/dL 74-106 [facility] Work Phone: Potassium [Moles/Vol] 3.7 mmol/L 3.5-5.1 [facility] Work Phone: Sodium [Moles/Vol] 141 mmol/L 136-145 [facility] Work Phone: Triglyceride [Mass/Vol] 360 mg/dL <199 [facility] [place] Work Phone: Comment on above: The drugs N-Acetylcy steine and Metamizole may falsely depress this assay.Serum Triglycerides Reference Interval Normal <150 mg/dL Borderline high 150 - 199 mg/dL High 200 - 499 mg/dL Very High > or = 500 mg/dL Laboratory - Chemistry and C hemistry - challengeon 10-30-2021 CO2 [Moles/Vol] 27.0 mmol/L 21.0-32.0 [facility] Work Phone: Urea nitrogen/Creatinine [Mass ratio] 28.3 mg/mg 10-20 [facility] Work Phone: No Panel Informationon 10-30 Estimated GFR (MDRD) Amer 98 mL/min >60 [facility] Work Phone: Comment on above: GFR Calc Estimated GFR (MDRD) Non-Af Amer 81 mL/min >60 [facility] Work Phone: Comment on above: Non- GFR Calc Urine Microalbumin/Creatinine Ratio 31.4 mg/g CRE <30 [facility] Work Phone: Serum or plasma calcium jer urement (mass/volume)on 10-30-2021 Calcium [Mass/Vol] 9.3 mg/dL 8.5-10.1 [facility] Work Phone: Serum or plasma cholesterol in HDL measurement (mass/volume)on 10-30-2021 Cholesterol in HDL [Mass/Vol] 45 mg/dL >40 [facility] Work Phone: Comment on above: The drugs N-Acetylcy steine and Metamizole may falsely depress this assay. Reference Range HDL <40 mg/dL Low HDL Cholesterol HDL >or= 60 mg/dL High HDL Cholesterol Serum or plasma cholesterol in VLDL measurement (mass/volume)on 10-30-2021 Cholesterol in VLDL [Mass/Vol] 72 mg/dL 5-40 [facility] Work Phone: Serum or plasma creatinine m easurement (mass/volume)on 10-30-2021 Creatinine [Mass/Vol] 0.74 mg/dL 0.55-1.02 [facility] Work Phone: Comment on above: The validity of the calculated GFR & GFRAA in patients over 70 years has not been determined. Clinical correlation is essential. Serum or plasma low density lipoprotein (LDL) cholesterol measurement (mass/volume)on 10-30-2021 Cholesterol in LDL [Mass/Vol] 170 mg/dL 0-130 [facility] Work Phone: Serum or plasma urea nitroge n measurement (mass/volume)on 10-30-2021 Urea nitrogen [Mass/Vol] 21 mg/dL 7-18 [facility] Work Phone: Thin prep Papanicolaou smear with manual screeningon 10-30-2021 Thin prep Papanicolaou smear with manual screening 8 5-15 [facility] Work Phone: Thin prep Papanicolaou smear with manual screening 43.3 mg/L NO RANGE EST. [facility] Work Phone: Urine creatinine measurement (mass/volume)on 10-30-2021 Creatinine (U) [Mass/Vol] 138.00 mg/dL NO RANGE EST. [facility] Work Phone: Laboratory - Chemistry and C hemistry - challengeon 04-17-2021 Free T4 [Mass/Vol] 1.49 ng/dL 0.76-1.46 [facility] Work Phone: No Panel Informationon 04-17 Thyroid Stimulating Hormone (TSH) 0.30 uIU/mL 0.358-3.74 [facility] Work Phone: Lab Report: T4 Free Directon 11-08-2016 Thyroxine (T4) free 1.54 ng/dL High 0.76-1.46 [facility] Work Phone: Lab Report: Thyroid Stim Hor coral (TSH)on 11-08-2016 Thyroid stimulating hormone (TSH) 1.28 u[iU]/mL Invalid Interpretation Code 0.358-3.74 [facility] Work Phone: Replaced Document: (P) Thyro globulin w/Anti-TG ABon 03-31-2016 Globulin 0.1 ng/mL Low 1.5-38.5 [facility] Work Phone: Globulin g/dL Invalid Interpretation Code 0.0-0.9 [facility] Work Phone: Office Visit: [facility] 03-27-2016 Adult depression screening assessment Adult depression screening assessment Invalid Interpretation Code [facility] Work Phone: Documentation of current medications (procedure) Done Invalid Interpretation Code [facility] Work Phone: Tobacco smoking status NHIS Never Invalid Interpretation Code [facility] Work Phone: Tobacco use [facility] Never smoker Invalid Interpretation Code [facility] Work Phone: Office Visit: Transition of [facility] 02-24-2014 Breast Mammogram screening Normal Bilateral Invalid Interpretation Code [facility] Work Phone: Office Visit: Transition of [facility] 02-24-2013 General categories [Interpretation] of Cervical or vaginal smear or scraping by Cyto stain Normal Invalid Interpretation Code [facility] Work Phone: Vital Signs Date Time Vital Sign Value Performing Clinician Facility 07-21-2024 10:49-0400 Body height 160 cm Dina Maya MD Work Phone: [facility] 07-21-2024 10:49-0400 Body mass index (BMI) [Ratio] 28.87 kg/m2 Dina Maya MD Work Phone: [facility] 07-21-2024 10:49-0400 Body weight 73.94 kg Dina Maya MD Work Phone: [facility] 07-21-2024 10:49-0400 Diastolic blood pressure 84 mm[Hg] Dina Maya MD Work Phone: [facility] 07-21-2024 10:49-0400 Systolic blood pressure 132 mm[Hg] Dina Maya MD Work Phone: [facility] 01-10-2023 14:04-0500 Body temperature 96.4 [degF] Dr. Martina Doll Work Phone: [facility] 01-10-2023 14:04-0500 Diastolic blood pressure 53 mm[Hg] Dr. Martina Doll Work Phone: [facility] 01-10-2023 14:04-0500 Heart rate 73 /min Dr. Martina Doll Work Phone: [facility] 01-10-2023 14:04-0500 Respiratory rate 16 /min Dr. Martina Doll Work Phone: [facility] 01-10-2023 14:04-0500 SaO2% (BldA) [Mass fraction] 96 % Dr. Martina Doll Work Phone: [facility] 01-10-2023 14:04-0500 Systolic blood pressure 127 mm[Hg] Dr. Martina Doll Work Phone: [facility] 01-10-2023 13:29-0500 Body height 162.[address] Martina Doll Work Phone: [facility] 01-10-2023 13:29-0500 Body mass index (BMI) [Ratio] 26.6 kg/m2 Dr. Martina Doll Work Phone: [facility] 01-10-2023 13:29-0500 Body weight 70.[address] Martina Doll Work Phone: [facility] 11-19-2022 10:21-0400 Body height 162.[address] Martina Doll Work Phone: [facility] 11-19-2022 10:21-0400 Body mass index (BMI) [Ratio] 26.9 kg/m2 Dr. Martnia Doll Work Phone: [facility] 11-19-2022 10:21-0400 Body temperature 98 [degF] Dr. Martina Doll Work Phone: [facility] 11-19-2022 10:21-0400 Body weight 70.[address] Martina Doll Work Phone: [facility] 11-19-2022 10:21-0400 Diastolic blood pressure 80 mm[Hg] Dr. Martina Doll Work Phone: [phone] [place] [address] 11-19-2022 10:21-0400 Heart rate 76 /min Dr. Martina Doll Work Phone: [facility] 11-19-2022 10:21-0400 Respiratory rate 16 /min Dr. Martina Doll Work Phone: [facility] 11-19-2022 10:21-0400 SaO2% (BldA) [Mass fraction] 99 % Dr. Martina Doll Work Phone: [facility] 11-19-2022 10:21-0400 Systolic blood pressure 135 mm[Hg] Dr. Martina Doll Work Phone: [facility] 03-11-2022 14:46-0500 Body height 162.[address] Martina Doll Work Phone: [facility] 03-11-2022 14:46-0500 Body mass index (BMI) [Ratio] 28.6 kg/m2 Dr. Martina Doll Work Phone: [facility] 03-11-2022 14:46-0500 Body temperature 95.8 [degF] Dr. Martina Doll Work Phone: [facility] 03-11-2022 14:46-0500 Body weight 75.[address] Martina Doll Work Phone: [facility] 03-11-2022 14:46-0500 Diastolic blood pressure 82 mm[Hg] Dr. Martina Doll Work Phone: [facility] 03-11-2022 14:46-0500 Heart rate 85 /min Dr. Martina Doll Work Phone: [facility] 03-11-2022 14:46-0500 Respiratory rate 18 /min Dr. Martina Doll Work Phone: [facility] 03-11-2022 14:46-0500 SaO2% (BldA) [Mass fraction] 97 % Dr. Matrina Doll Work Phone: [facility] 03-11-2022 14:46-0500 Systolic blood pressure 146 mm[Hg] Dr. Martina Doll Work Phone: [facility] 02-07-2022 09:16-0500 Body height 162.[address] Martina Doll Work Phone: [facility] Work Phone: 02-07-2022 09:16-0500 Body mass index (BMI) [Ratio] 29 kg/m2 Dr. Martina Doll Work Phone: [facility] 02-07-2022 09:16-0500 Body temperature 96.6 [degF] Dr. Martina Doll Work Phone: [facility] 02-07-2022 09:16-0500 Body weight 76.[address] Martina Doll Work Phone: [facility] 02-07-2022 09:16-0500 Diastolic blood pressure 91 mm[Hg] Dr. Martina Doll Work Phone: [facility] 02-07-2022 09:16-0500 Heart rate 79 /min Dr. Martina Doll Work Phone: [facility] 02-07-2022 09:16-0500 Respiratory rate 18 /min Dr. Martina Doll Work Phone: [facility] 02-07-2022 09:16-0500 SaO2% (BldA) [Mass fraction] 94 % Dr. Martina Doll Work Phone: [facility] 02-07-2022 09:16-0500 Systolic blood pressure 139 mm[Hg] Dr. Martina Doll Work Phone: [facility] 03-27-2016 08:31-0500 BMI (Body Mass Index) 31.44 kg/m2 Ashley Kang NP [facility] Work Phone: 03-27-2016 08:31-0500 Body Temperature 97.9 [degF] Ashley Kang NP [facility] Work Phone: 03-27-2016 08:31-0500 BP Diastolic 77 mm[Hg] Ashley Kang NP [facility] Work Phone: 03-27-2016 08:31-0500 BP Systolic 121 mm[Hg] Ashley Kang NP [facility] Work Phone: 03-27-2016 08:31-0500 Height 163.19 cm Ashley Kang NP [facility] Work Phone: 03-27-2016 08:31-0500 Pulse (Heart Rate) 76 /min Ashley Kang NP [facility] Work Phone: 03-27-2016 08:31-0500 Respiratory Rate 18 /min Ashley Kang NP [facility] Work Phone: 03-27-2016 08:31-0500 Weight 83.73 kg Ashley Kang NP [facility] Work Phone: 03-27-2016 08:31-0500 Weight 83.91 kg Ashley Kang NP [facility] Work Phone: Encounters Encounter Date Encounter Type Care Provider Facility Start: 09-22-2024 ambulatory Nithin Brandon Faci lity:[facility] Start: 08-19-2024 End: 08-19-[address] Nithin Brandon MD Work Phone: -[facility] [place] Start: 08-19-2024 End: 08-19-[address] Nithin Brandon MD -[facility] [place] Work Phone: Start: 08-19-2024 End: 08-19-2024 ambulatory Nithin Brandon Facility:[facility] Start: 08-09-2024 End: 08-09-[address] 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 Martina Doll MD Work Phone: [facility] Work Phone: Start: 06-16-2024 End: 06-16-[address] Nithin Brandon MD -Outpatient Breast Imaging Work Phone: Start: 06-16-2024 End: 06-16-2024 ambulatory Nithin Brandon Facility:[facility] Start: 03-22-2024 End: 03-22-[address] Martina Doll MD -Laboratory, [facility] Start: 03-22-2024 End: 03-22-2024 ambulatory Martina Doll Facility:[facility] Start: 01-29-2024 End: 01-29-2024 ambulatory Martina Doll Facility:[facility] Start: 01-15-2024 End: 01-15-2024 ambulatory [place] Campos Facility:[facility] Start: 01-08-2024 End: 01-08-2024 ambulatory Martina Doll Facility:[facility] Start: 10-16-2023 End: 10-17-2023 ambulatory Martina Doll Facility:[facility] Start: 06-16-2023 End: 06-16-2023 ambulatory [facility] Work Phone: Start: 06-16-2023 End: 06-16-2023 Patient encounter procedure [facility] Work Phone: Start: 05-02-2023 End: 05-02-2023 ambulatory [facility] Work Phone: Start: 05-02-2023 End: 05-02-2023 Patient encounter procedure [facility] Start: 01-10-2023 End: 01-10-[address] Martina Doll Work Phone: [facility] Work Phone: Start: 01-10-2023 End: 01-10-[address] Martina Doll Work Phone: [facility] Work Phone: Start: 12-26-2022 End: 12-26-[address] Martina Doll Work Phone: [facility] Work Phone: Start: 12-26-2022 End: 12-26-[address] Martina Doll Work Phone: [facility] Work Phone: Start: 11-19-2022 End: 11-19-[address] Martina Doll Work Phone: [facility] Work Phone: Start: 06-14-2022 End: 06-14-[address] Martina Doll Work Phone: [facility] Work Phone: Start: 06-14-2022 End: 06-14-[address] Martina Doll Work Phone: [facility] Start: 05-13-2022 End: 05-13-[address] Martina Doll Work Phone: [facility] Work Phone: Start: 05-13-2022 End: 05-13-[address] Martina Doll Work Phone: [facility] Start: 03-11-2022 End: 03-11-[address] Martina Doll Work Phone: [facility] Start: 03-07-2022 End: 03-07-[address] Martina Doll Work Phone: [facility] Work Phone: Start: 03-07-2022 End: 03-07-[address] Mart[facility] Work Phone: [facility] [facility] Start: 02-08-2022 End: 02-08-[address] Martina Doll Work Phone: [facility] Work Phone: Start: 02-08-2022 End: 02-08-[address] Martina Doll Work Phone: [facility] Start: 02-07-2022 End: 02-07-[address] Martina Doll Work Phone: [facility] Start: 10-30-2021 End: 10-30-2021 ambulatory [facility] Work Phone: Start: 10-30-2021 End: 10-30-2021 Patient encounter procedure [facility] Start: 06-13-2021 End: 06-13-2021 Patient encounter procedure [facility] Start: 04-17-2021 End: 04-17-2021 Patient encounter procedure [facility] Procedures Date Procedure Procedure Detail Performing Clinician Start: 08-19-2024 X-ray of chest, PA a nd lateral views Dr. Nithin Brandon MD Work Phone: Start: 06-16-2024 Screening mammography Georgette Doll MD Work Phone: Start: 06-16-2023 Screening mammography Start: 06-14-2022 Screening mammography Georgette Doll Work Phone: Start: 03-07-2022 Dual energy X-ray absorptiometry Dr. Martina Doll Work Phone: Start: 06-13-2021 Screening mammography Start: 03-27-2016 End: 03-31-2016 Globulin Ashley Kang NP Work Phone: Start: 03-27-2016 End: 11-12-2016 Thyroid stimulating hormone (TSH) Ashley Kang NP Work Phone: Start: 03-27-2016 End: 11-12-2016 Thyroxine (T4) free Ashley Kang NP Work Phone: Plan of Treatment Date Care Activity Detail Author Start: 07-21-2025 End: 07-21-2025 Patient encounter procedure 07/21/2025 9:00 AM EDT Office Visit OB/Gynecology [address] [place] [id number] Dina Maya MD [address] [place] [address] Annual OB/Gynecology Comment on above: Annual Start: 07-18-2024 Covid-19 Vaccine ( season) Covid-19 Vaccine ( season) [facility] Start: 02-25-2024 Advance Directive Discussion Advance Directive Discussion [facility] Start: 01-10-2023 Iv infusion therapy/prophylaxis /dx 1st to 1 hr THER/PROPH/DIAG IV INF INIT [facility] Start: 2021 RSV Vaccine (1 - 1-dose 75+ series) RSV Vaccine (1 - 1-dose 75+ series) [facility] Start: 03-27-2016 End: 03-31-2016 Globulin *ATAB - Thyroglobulin Antibody [facility] Work Phone: Start: 03-27-2016 End: 11-12-2016 Thyroid stimulating hormone (TSH) *TSH [facility] Work Phone: Start: 03-27-2016 End: 11-12-2016 Thyroxine (T4) free *T4 free [facility] Work Phone: Start: 02-16-2016 Pneumococcal Vaccine : 50+ (2 of 2 - PCV) Pneumococcal Vaccine: 50+ (2 of 2 - PCV) [facility] Start: 10-27-2007 Diabetes Screening Diabetes Screenin g [facility] Start: 1996 Shingrix Vaccine (1 of 2) Shingrix Vaccine (1 of 2) [facility] Start: 1965 Urine microalbumin profile DTaP,Tdap,Td Vaccine (1 - Tdap) [facility] Start: 1964 Annual PCP Team Chronic Disease Visit Annual PCP Team Chronic Disease Visit [facility] Start: 1964 Anxiety Screening Anxiety Screening [facility] Start: 1964 BP Controlled (<130/80) BP Controlled (<130/80) [facility] Start: 1964 Depression Screening Depression Scre ening [facility] Start: 1964 Hepatitis C [facility] panel - Serum or Plasma [facility] T4 free measurement [facility] Thyroid stimulating hormone measurement [facility] Vitamin D, 25-hydrox y measurement [facility] Payers Date Payer Category Payer Self-pay [id number] 2016 [facility] ANTHEM CA DICARE SUPPLEMENT [id number] 2016 Unknown [id number] 2011 Medicare MEDICARE [id number] 2011 Medicare [id number] Unknown [id number] Unknown [id number] Unknown [id number] Unknown [id number] Unknown [id number] Unknown [id number] Unknown [id number] Unknown [id number] Unknown [id number] Unknown [id number] Social History Date Type Detail Facility Start: 02-08-2021 End: 11-19-2022 Tobacco smoking status NDIS Unknown if ever smoked [facility] Start: 1945 Sex Assigned At Female [facility] [place] Start: 04-01-2011 End: 11-19-2022 Tobacco smoking status NHIS Never smoked tobacco (finding) [facility] Start: 06-21-2024 Sex Female (finding) [facility] Start: 04-01-2011 Tobacco use and exposure Smokeless tobacco non-user [facility] Start: 07-21-2024 Alcoholic beverage intake Current non-drinker of alcohol (finding) [facility] Start: 07-21-2024 History of Social function [facility] Start: 07-21-2024 Tobacco use panel [facility] National Score (1-10 0), lower number is lower risk 60 [facility] Start: 1945 Sex assigned at Not on file [facility] Functional Status Date Assessment Result Facility 09-21-2013 Are you deaf, or do you have serious difficulty hearing No 09/21/2013 3:00 PM Osiris Shetty LPN No [facility] 09-21-2013 Are you blind, or do you have serious difficulty seeing, even when wearing glasses No 09/21/2013 3:00 PM Osiris Shetty LPN No [facility] 09-21-2013 Do you have serious difficulty walking or climbing stairs No 09/21/2013 3:00 PM Osiris Shetty LPN No [facility] 09-21-2013 Do you have difficul ty dressing or bathing No 09/21/2013 3:00 PM EDT Osiris Fisher LPN No [facility] 09-21-2013 Because of a physica l, mental, or emotional condition, do you have difficulty doing errands alone such as visiting a physician's office or shopping No 09/21/2013 3:00 PM EDT Osiris Fisher LPN No [facility] Mental Status Date Assessment Result Facility 01-10-2023 Cognitive function Awake;Alert;A ppropriate; Follows Commands [facility] Work Phone: 09-21-2013 Because of a physica l, mental, or emotional condition, do you have serious difficulty concentrating, remembering, or making decisions No 09/21/2013 3:00 PM EDT Osiris Fisher LPN No [facility] Radiology Diagnostic study note 08-20-2024 Note Date & Type Note Facility 08-20-2024 Radiology Diagnostic study note [facility] Imaging Services [address] [place] [address] Chest PA and Lateral MR#: [id number] Acct: [id number] Name: MARLINE MABRY Rep #: [id number] : 1945 F 79 From: Genny Roth MD PCP: Dr. Nithin Brandon MD Status: REG CLI Study:Chest PA and Lateral Date of Exam: 08/19/24 Exam# [id number] Ordering Dr: Prasanna Brandon MD EXAM: XR Chest, 2 Views CLINICAL INDICATION: EXERCTION E TECHNIQUE: Frontal and lateral views of the chest. COMPARISON: No relevant prior studies available. FINDINGS: LUNGS AND PLEURAL SPACES: Unremarkable. No consolidation. No pneumothorax. HEART: Unremarkable. No cardiomegaly. MEDIASTINUM: Unremarkable. Normal mediastinal contour. BONES/JOINTS: Suggestion of pectus excavatum. No acute fracture. RAD/Chest PA and Lateral IMPRESSION: No acute cardiopulmonary process. Reading Location: [id number] CC: Dr. Nithin Brandon MD ~ Stock Clerk: Signed [facility] Progress note 07-21-2024 Note Date & Type Note Facility 07-21-2024 Note HNO ID: [id number] Author: DINA MAYA MD Service: ? Author Type: Physician Type: Progress Notes Filed: 07/21/2024 11:02 Note Text: Felipa is a 78 year old who presents for an annual gynecologic exam without complaints. Postmenopausal: yes Still get period: No Menopause symptoms: None Number of lifetime partners: 2 control frequency: Never HPV vaccine: No; Last pap smear: 2011 normal History of abnormal pap: No, all prior PAP smears have been normal Bothersome pelvic pain: No OB History Gravida3 Para3 Term3 Preterm0 AB0 Living3 SAB0 IAB0 Ectopic0 Multiple0 Live Births0 Comment: Menarche at age 14. [employer] 27. 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 CATARACT EXTRACTION HX Bilateral 2015 LAPS SURG CHOLECYSTECTOMY W/CHOLANGIOGRAPHY 02/12/2006 MASTEC,MOD RADICAL 12/20/2003 left REDUCTION OF LARGE BREAST 12/20/2003 right REPAIR FIRST ABDOMINAL WALL HERNIA Hernia repair, incisional SKIN BX, 1 LESION 2022 weston and back- skin cancer THYROIDECTOMY TOTAL/COMPLETE 08/12/2005 FAMILY HISTORY Problem Relation Age of Onset Thyroid Mother graves disease Heart Father Hypertension Father Stroke Father Heart Brother Thyroid Maternal Grandmother graves disease Cancer Maternal Grandfather lung Diabetes Paternal Grandfather adult onset Thyroid Daughter graves disease other (No family hx. of breast cancer) Other SOCIAL HISTORY Social History Tobacco Use Smoking status: Never Smokeless tobacco: Never Vaping Use Vaping status: Never Used Substance Use Topics Alcohol use: No Drug use: No REVIEW OF SYSTEMS Abdomen: No abdominal pain, nausea, vomiting, diarrhea, or constipation. No bloating, early satiety, indigestion, or increased flatulence. Bladder: No dysuria, gross hematuria, urinary frequency, urinary urgency, or incontinence Breast: no changes Allergies and current medication updated:Yes SENSITIVE EXAM: The sensitive examination was discussed with the Patient or Patient's Authorized Mold Holder. As applicable, any other physician, advance practice provider, medical student, or other health professional student that will be observing or involved in the sensitive examination for educational or training purposes was discussed with the Patient or Authorized Mold Holder. The Patient or Authorized Mold Holder has agreed to proceed with the sensitive examination. (Sensitive examination includes inspection and/or palpation of the breasts, pelvis, prostate and anorectal regions). EXAM: There were no vitals taken for this visit. GENERAL: pleasant, female in no apparent distress HEENT: Normocephalic, atraumatic, mucus membranes moist, and no lesions NECK: Supple, full range of motion, no adenopathy, and thyroid normal BREAST: right, non-tender, no dominant mass, normal nipple-areolar complex, no lymphadenopathy, no nipple discharge, and left absent, no masses noted around implant or skin changes CHEST: Normal inspiratory effort PELVIC: normal Bartholin's glands, urethra, Moorefield's glands, no vulvar lesions, no cervical lesions, good vaginal support, physiologic discharge present, normal appearing perineal body and perianal region, thin white skin around vulva/perineum w/ some hypopitmentation, no ulcerations/fissures BIMANUAL: uterus normal size, shape and consistency, no adnexal masses, and non-tender RECTOVAGINAL: deferred. NEURO: alert and oriented x3,exam grossly non-focal EXTREMITIES: normal ASSESSMENT/PLAN: 1) Health maintenance: Pap/HPV screening no longer needed Pap/HPV up to date. other healt screens per PCP suspect lichen sclerosis but patient denies symptoms/problems 2) Follow up one year or sooner as needed Dina Maya MD [facility] History of Present illness Narrative 07-21-2024 Dina Maya MD - 07/21/2024 10:43 AM EDT Note Date & Type Note Facility 07-21-2024 History of Presen t illness Narrative Felipa is a 78 year old who presents for an annual gynecologic exam without complaints. Postmenopausal: yes Still get period: No Menopause symptoms: None Number of lifetime partners: 2 control frequency: Never HPV vaccine: No; Last pap smear: 2011 normal History of abnormal pap: No, all prior PAP smears have been normal Bothersome pelvic pain: No OB History Gravida3 Para3 Term3 Preterm0 AB0 Living3 SAB0 IAB0 Ectopic0 Multiple0 Live Births0 Comment: Menarche at age 14. AF[employer] 27. 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 CATARACT EXTRACTION HX Bilateral 2015 LAPS SURG CHOLECYSTECTOMY W/CHOLANGIOGRAPHY 02/12/2006 MASTEC,MOD RADICAL 12/20/2003 left REDUCTION OF LARGE BREAST 12/20/2003 right REPAIR FIRST ABDOMINAL WALL HERNIA Hernia repair, incisional SKIN BX, 1 LESION 2022 weston and back- skin cancer THYROIDECTOMY TOTAL/COMPLETE 08/12/2005 FAMILY HISTORY Problem Relation Age of Onset Thyroid Mother graves disease Heart Father Hypertension Father Stroke Father Heart Brother Thyroid Maternal Grandmother graves disease Cancer Maternal Grandfather lung Diabetes Paternal Grandfather adult onset Thyroid Daughter graves disease other (No family hx. of breast cancer) Other SOCIAL HISTORY Social History Tobacco Use Smoking status: Never Smokeless tobacco: Never Vaping Use Vaping status: Never Used Substance Use Topics Alcohol use: No Drug use: No REVIEW OF SYSTEMS Abdomen: No abdominal pain, nausea, vomiting, diarrhea, or constipation. No bloating, early satiety, indigestion, or increased flatulence. Bladder: No dysuria, gross hematuria, urinary frequency, urinary urgency, or incontinence Breast: no changes Allergies and current medication updated:Yes SENSITIVE EXAM: The sensitive examination was discussed with the Patient or Patient's Authorized Mold Holder. As applicable, any other physician, advance practice provider, medical student, or other health professional student that will be observing or involved in the sensitive examination for educational or training purposes was discussed with the Patient or Authorized Mold Holder. The Patient or Authorized Mold Holder has agreed to proceed with the sensitive examination. (Sensitive examination includes inspection and/or palpation of the breasts, pelvis, prostate and anorectal regions). EXAM: There were no vitals taken for this visit. GENERAL: pleasant, female in no apparent distress HEENT: Normocephalic, atraumatic, mucus membranes moist, and no lesions NECK: Supple, full range of motion, no adenopathy, and thyroid normal BREAST: right, non-tender, no dominant mass, normal nipple-areolar complex, no lymphadenopathy, no nipple discharge, and left absent, no masses noted around implant or skin changes CHEST: Normal inspiratory effort PELVIC: normal Bartholin's glands, urethra, [place]'s glands, no vulvar lesions, no cervical lesions, good vaginal support, physiologic discharge present, normal appearing perineal body and perianal region, thin white skin around vulva/perineum w/ some hypopitmentation, no ulcerations/fissures BIMANUAL: uterus normal size, shape and consistency, no adnexal masses, and non-tender RECTOVAGINAL: deferred. NEURO: alert and oriented x3,exam grossly non-focal EXTREMITIES: normal ASSESSMENT/PLAN: 1) Health maintenance: Pap/HPV screening no longer needed Pap/HPV up to date. other healt screens per PCP suspect lichen sclerosis but patient denies symptoms/problems 2) Follow up one year or sooner as needed Dina Maya MD documented in this encounter [facility] Evaluation note Note Date & Type Note Facility Evaluation note No assessment information availa [facility] Work Phone: Evaluation note Note Date & Type Note Facility Evaluation note Diagnosis Onset Date Fatty liver acute Mixed hyperlipidemia acute Postoperative primary hypothyroidism [facility] Work Phone: Evaluation note Note Date & Type Note Facility Evaluation note Diagnosis Onset Date Fatty liver acute Mixed hyperlipidemia acute Postoperative primary hypothyroidism acute Osteoporosis acute Vitamin D deficiency [facility] Work Phone: Evaluation note Note Date & Type Note Facility Evaluation note Diagnosis Onset Date Osteoporosis acute Vitamin D deficiency [facility] Work Phone: Evaluation note Note Date & Type Note Facility Evaluation note Diagnosis Onset Date Osteoporosis chronic Postoperative primary hypothyroidism chronic Vitamin D deficiency chronic [facility] Work Phone: Evaluation note Note Date & Type Note Facility Evaluation note Diagnosis HYDROSTATIC TESTER exam for high-risk Medicare patient- Primary Routine gynecological examination History of breast cancer Personal history of malignant neoplasm of breast documented in this encounter [facility] Reason for referral (narrative) Note Date & Type Note Facility Reason for referral (narrative) No reason for referral information available [facility] Work Phone: Chief Complaint and Reason for Visit Chief Complaint EORDER SCREENING Chief Complaint 1 Y FU EORDER Reason for Visit Fatty liver Mixed hyperlipidemia Postoperative primary hypothyroidism Chief Complaint 1 Y FU EORDER OSTEOPENIA 6 M FU Reason for Visit Fatty liver Mixed hyperlipidemia Postoperative primary hypothyroidism Osteoporosis Vitamin D deficiency Chief Complaint 1 Y FU EORDER OSTEOPENIA 6 M FU EORDER Reason for Visit Fatty liver Mixed hyperlipidemia Postoperative primary hypothyroidism Osteoporosis Vitamin D deficiency Chief Complaint OSTEOPENIA 6 M FU EORDER SCREENING Reason for Visit Osteoporosis Vitamin D deficiency Chief Complaint 8 M FU EORDER Reason for Visit Osteoporosis Postoperative primary hypothyroidism Vitamin D deficiency Chief Complaint 8 M FU EORDER RECLAST Reason for Visit Osteoporosis Postoperative primary hypothyroidism Vitamin D deficiency Chief Complaint RECLAST Chief Complaint screening Chief Complaint Admit Date SCREENING June 16, 2024 9:2 8am Chief Complaint Admit Date SCREENING June 16, 2024 9:2 8am E-ORDER August 19, 2024 3:02 pm Family History No Family History Records Found Relationship Condition Age at Onset Recorded Date/T isma Not Specified History of blood clots Unknown Myocardial infarction Unknown mother Disorder of thyroid Unknown Malignant neoplasm Unknown father Cerebrovascular accident (CVA) Unknown Cardiac disease Unknown brother Cardiac disease Unknown Advance Directives No Advanced Directives Records Found Advance Directive Response Recorded Date/ Time Living Will Yes July 19, 2016 9 :36pm Power of Mortgage Loan Coordinator Yes July 19, 2016 9:36pm Advance Directive Response Recorded Date/ Time Living Will Yes July 19, 2016 8 :36pm Power of Mortgage Loan Coordinator Yes July 19, 2016 8:36pm Summary Purpose Additional Source Comments Goals (unrecognized section and content) Goals may be documented in a n alternate sectionGoals may be documented in an alternate sectionGoals may be documented in an alternate sectionGoals may be documented in an alternate sectionGoals may be documented in an alternate sectionGoals may be documented in an alternate sectionGoals may be documented in an alternate sectionGoals may be documented in an alternate sectionGoals may be documented in an alternate sectionGoals may be documented in an alternate sectionGoals may be documented in an alternate sectionGoals may be documented in an alternate sectionGoals may be documented in an alternate section Care Teams (unrecognized sec tion and content) Team Status: Active Member Role Status Dates Dr. Martina Doll MD Family Provider Active Dr. Martina Doll MD Primary Care Provider Active Team Status: Inactive Member Role Status Dates Dr. Martina Doll MD Primary Care Provider, Referrin g Provider Active Dr. Lake Campos MD Attending Provider Active Team Status: Inactive Member Role Status Dates Dr. Martina Doll MD Primary Care Provider Active Dr. Lake Campos MD Attending Provider, Referring Provi kiko Active Team Status: Inactive Member Role Status Dates Dr. Martina Doll MD Primary Care Provider Active Dr. Lake Campos MD Attending Provider Active Team Status: Inactive Member Role Status Dates Dr. Martina Doll MD Primary Care Prov ider, Attending Provider, Referring Provider Active Team Status: Inactive Member Role Status Dates Dr. Martina Doll MD Primary Care Provider Active YOKO Kendall Attending Provider, Referring Pr ovider Active Team Status: Inactive Member Role Status Dates Dr. Martina Doll MD Primary Care Provider, Attendin g Provider Active Team Status: Active Member Role Status Dates Dr. Nithin Brandon MD Primary Care Provider Acti ve Team Status: Inactive Member Role Status Dates Dr. Martina Doll MD Primary Care Provider Active Start: March 22, 2024 End: March 22, 2024 Dr. Martina Doll MD Attending Provider Active Start: March 22, 2024 End: March 22, 2024 Dr. Martina Doll MD Referring Provider Active Start: March 22, 2024 End: March 22, 2024 Team Status: Inactive Member Role Status Dates Dr. Nithin Brandon MD Primary Care Provider Acti ve Start: June 16, 2024 End: June 16, 2024 Dr. Nithin Brandon MD Attending Provider Active Start: June 16, 2024 End: June 16, 2024 Dr. Nithin Brandon MD Referring Provider Active Start: June 16, 2024 End: June 16, 2024 Medical Underwriter Relationship Specialty Start Date End Date Sharmila Martina Cheatham [address] [place] [address] PCP - General 06/30/03 Team Status: Inactive Member Role Status Dates Dr. Nithin Brandon MD Primary Care Provider Acti ve Start: August 09, 2024 End: August 09, 2024 Giselle Paredes NP, SUPERVISOR [employer]-C Attending Provider Active Start: August 09, 2024 End: August 09, 2024 Team Status: Active Member Role/Relationship Status Dates Dr. Nithin Brandon MD Primary Care Provider Acti ve Team Status: Inactive Member Role/Relationship Status Dates Dr. Nithin Brandon MD Primary Care Provider Acti ve Start: June 16, 2024 End: June 16, 2024 Dr. Nithin Brandon MD Attending Provider Active Start: June 16, 2024 End: June 16, 2024 Dr. Nithin Brandon MD Referring Provider Active Start: June 16, 2024 End: June 16, 2024 Team Status: Inactive Member Role/Relationship Status Dates Dr. Nithin Brandon MD Primary Care Provider Acti ve Start: August 09, 2024 End: August 09, 2024 Giselle Paredes NP, SUPERVISOR [employer]-C Attending Provider Active Start: August 09, 2024 End: August 09, 2024 Team Status: Inactive Member Role/Relationship Status Dates Dr. Nithin Brandon MD Primary Care Provider Acti ve Start: August 19, 2024 End: August 19, 2024 Dr. Nithin Brandon MD Attending Provider Active Start: August 19, 2024 End: August 19, 2024 Dr. Nithin Brandon MD Referring Provider Active Start: August 19, 2024 End: August 19, 2024 Source Comments (unrecognize d section and content) In the event this informatio n is protected by the Federal Confidentiality of Alcohol and Drug Abuse Patient Records regulations: The Federal rules restrict any use of the information to criminally investigate or prosecute any alcohol or drug abuse patient.[facility] Reason for Visit (unrecogniz ed section and content) Reason Comments Yearly Exam INFORMATION SOURCE (unrecogn ized section and content) DATE CREATED AUTHOR 07/24/2024 [facility] DATE CREATED AUTHOR AUTHOR'S ORGANIZ ATION 09/17/2024 [facility] FOR RECORDS PERTAINING TO PATIENTS WHO ARE OR HAVE BEEN ENROLLED IN A CHEMICAL DEPENDENCY/SUBSTANCEABUSE PROGRAM, SOME INFORMATION MAY BE OMITTED. This clinical summary was aggregated from multiple sources. Caution should be exercised in using it in the provision of clinical care. This summary normalizes information from multiple sources, and as a consequence, information in this document may materially change the coding, format and clinical context of patient data. In addition, data may be omitted in some cases. CLINICAL DECISIONS SHOULD BE BASED ON THE PRIMARY CLINICAL RECORDS. [employer] [facility]. provides no warranty or guarantee of the accuracy or completeness of information in this document.
--- NOTE | 2024-09-22 15:30 | STRESSREP ---
Stress Test Report Pharmacologic myocardial perfusion stress test. 79-year-old lady with a history of chest pain Resting EKG demonstrates sinus rhythm with a left bundle branch block with a rate of 78 bpm. Resting blood pressure is 134/70 mmHg. 0.4 mg of regadenoson was infused per usual protocol followed by rapid intravenous saline flush injection. Continuous EKG monitoring was performed. The maximum heart rate was 112 bpm which was 78% of max impacted heart rate the maximum workload was 1 metabolic equivalent. At rest there were no ST or T wave changes noted to suggest ischemia and at peak infusion nonspecific ST changes were noted which did not meet the criteria for ischemia. No clinical angina is noted. The final blood pressure was 124/66 mmHg. Myocardial perfusion protocol. 11.7 mCi of technetium 99m sestamibi was injected at rest. 0.4 mg of regadenoson was infused per usual protocol. At peak infusion 33.4 mCi of technetium 99m sestamibi was injected stress images were obtained stress and rest images were reconstructed and compared in the short axis vertical long and horizontal long axis. Gated images were also obtained. Perfusion SPECT analysis: Review of the stress images demonstrate normal uptake of tracer noted in all areas of the myocardium. The resting images similar demonstrated normal uptake of tracer noted in all areas of the myocardium. No areas of reversibility are noted to suggest ischemia and no previous infarct is noted. Gated SPECT analysis: The gated ejection fraction is 71%. Conclusion: Normal pharmacologic myocardial perfusion stress test. Preserved ejection fraction.
== END | disposition home or self-care (01) ==
LOC: CVS 06:48
PROVIDERS: PCP Family Medicine; Referring Provider Family Medicine; Visit Provider Family Medicine
DX: I48.92 Unspecified atrial flutter (principal); R06.09 Other forms of dyspnea
CPT/HCPCS: 78452; 93017; 93306; A9500; A4216; J2785

== ENCOUNTER → 2024-11-03 | Outpatient (CLI) | payer MEDICARE, BC, SELFPAY ==
--- NOTE | 2024-11-03 09:56 | US_ITS ---
PROCEDURE: ABD LIMITED W/ ELASTOGRAPHY REASON FOR EXAM: ELASTOGRAPHY PLEASE Fatty infiltration of the liver. COMPARISON: None. TECHNIQUE: Procedure Code: [id number] Modality: US Procedure: ABD LIMITED W/ ELASTOGRAPHY Right upper quadrant abdominal ultrasound. be2 ElastQ Imaging shear wave elastography for non-invasive assessment of liver tissue stiffness. Ana Maria EPIQ Elite. FINDINGS: LIVER: Size: Unremarkable Length: 13.9 cm Echotexture: Diffusely echogenic suggesting fatty infiltration Contour: Normal Lesions: None identified Elastography: EQI Med: 5.3 kPa EQI Med Tariq: 1.32 m/s IQR/Med: 22 %* GALLBLADDER: Surgically absent. COMMON BILE DUCT: Dilated measuring up to 10 mm. This is within normal range for the post cholecystectomy state. . PANCREAS: Normal Visualized portions of the right kidney are unremarkable. No right upper quadrant ascites. US/ABD Limited w/ Elastography IMPRESSION: NO TO MILD HEPATIC FIBROSIS Diffuse fatty infiltration of the liver. Reference Values: SRU <1.37 m/s (5.7kPa): No to mild fibrosis 1.37 m/s - 2.2 m/s: Moderate to severe fibrosis >2.2 m/s (15kPa): Significant fibrosis / cirrhosis METAVIR Score F2 or higher: 1.34 m/s (5.7kPa) F3 or higher: 1.55 m/s (7.3kPa) F4: 1.80 m/s (10kPa) * If the IQR/Med is >30%, the variance in the measurements is a large and the a ccuracy of the measurement may be in question. Reading Location: [id number]
== END | disposition home or self-care (01) ==
PROVIDERS: PCP Family Medicine; Referring Provider Internal Medicine Endocrinology, Diabetes & Metabolism; Visit Provider Internal Medicine Endocrinology, Diabetes & Metabolism
DX: K76.0 Fatty (change of) liver, not elsewhere classified (principal)
CPT/HCPCS: 76705; 76981

== ENCOUNTER 2025-01-14 11:19 | Outpatient (CLI) | payer MEDICARE, BC, SELFPAY ==
[2025-01-14 11:25] VITALS: BP 133/57; PULSE 74; RESP 16; TEMP 35.8; O2SAT 95
[2025-01-14] MEDS: 0.9% NaCl Peripheral Flush Adult IV (11:35)
--- OUTSIDE RECORDS SUMMARY | 2025-01-14 12:08 | XMS RPT_ITS | CCD ---
Author Organization [facility] Care Team Providers Care Minesweeping Officer Name Role Phone Pearl BLACKMON, Ashley Herbert Unavailable Dr. Martina Doll Primary Care Provider Dr. Martina Doll Referring Provider Dr. Lake Campos Attending Provider Dr. Martina Doll Primary Care Provider Dr. Martina Doll Referring Provider Dr. Lake Campos Attending Provider Dr. Martina Doll Primary Care Provider Dr. Martina Doll Referring Provider Dr. Lake Campos Attending Provider Dr. Martina Doll Primary Care Provider Dr. Martina Doll Referring Provider Dr. Lake Campos Attending Provider Dr. Martina Doll MD Primary Care Provider Dr. Martina Doll MD Attending Provider Sharmila ROACH, Dr. Martina Sanford Referring Provider Dr. Nithin Brandon MD Primary Care Provider Dr. Nithin Brandon MD Attending Provider [phone] Roma ROACH, Dr. Weller Referring Provider Martina Doll Primary Care Provider DINA MAYA Attending Unavailable JOLLIFF, MARTINA KENNETH Primary Care Unavailable Reggie BLACKMON-C, Giselle Attending Provider [phone] Chetan ROACH, Dr. Freeman Attending Provider [phone] Nithin Brandon MD Primary Care Provider Dr. Nithin Brandon MD Attending Provider Dr. Nithin Brandon MD Referring Provider [phone] Sharmila ROACH, Dr. Martina Sanford Referring Provider King DOC, Dr. Bethea Attending Provider Jolliff, Martina S Referring Unavailable Andres, Lake Attending Unavailable Roma, Christshirleyer Primary Care Unavailable Rankaveh, Nithin Primary Care Unavailable Roma, Nithin Attending Unavailable Rankaveh, Christshirleyer Referring Unavailable Jolliff, Martina S Attending Unavailable Jolliff, Martina S Referring Unavailable Jolliff, Martina S Primary Care Unavailable Andres, Lake Attending Unavailable Andres, Lake Referring Unavailable Jolliff, Martina S Primary Care Unavailable Jolliff, Martina S Primary Care Unavailable Andres, Lake Attending Unavailable Andres, Lake Referring Unavailable Jolliff, Martina S Primary Care Unavailable Andrse, Lake Attending Unavailable Andres, Lake Referring Unavailable Andres, Lake Referring Unavailable Andres, Lake Attending Unavailable Roma, Christmike Primary Care Unavailable Rankaveh, Christshirleyer Primary Care Unavailable Roma, Nithin Attending Unavailable Rankaveh, Christshirleyer Referring Unavailable Rankaveh, Christshirleyer Primary Care Unavailable Roma, Alexer Attending Unavailable Roma, Alexer Referring Unavailable Roma, Nithin Primary Care Unavailable Reggie OIL WELL FISHING TOOL OPERATOR, Giselle Attending Unavailable Roma, Nithin Primary Care Unavailable Pete Benton Attending Unavailable Dr. Nithin Brnadon MD Primary Care Physicia n Reggie OIL WELL FISHING TOOL OPERATOR-C, Giselle Attending Physician Dr. Nithin Brandon MD Attending Physician Dr. Pete Benton MD Attending Physician Dr. Lake Campos MD Attending Physician [phone] Dr. Lake Campos MD Referring Provider Medications Current Medications Medication Drug Class(es) Dates Sig (Normalized) Sig (Original) aspirin 81 mg delayed release oral tablet (3 sources) Platelet Aggregation Inhibitor, Nonsteroidal Anti-inflammatory Drug Start: 10-19-2024 take 1 tablet by mouth once daily Start: 10-21-2005 End: 07-21-2024 ASPIRIN 81 MG TAB Take one(1 ) tablet daily. 0 10/21/2005 07/21/2024 Discontinued (Other) atenolol 25 mg oral tablet (18 sources) beta-Adrenergic Edda Start: 07-19-2016 take 1 tablet by mouth once daily calcium carb/vit D3/minerals (CALTRATE 600+D PLUS MINERALS ORAL) (1 source) calcium carb/vit D3/minerals (CALTRATE 600+D PLUS MINERALS ORAL) Active calcium carbonate 1500 mg / cholecalciferol 800 unt chewable tablet (19 sources) Vitamin D Start: 10-19-2024 Start: 02-08-2021 End: 10-16-2023 Wpe-D0-[id number]-Rfjb-Ugv-Bmsp-R or (Caltrate 600-D Plus Minerals) 600 mg calcium- 800 unit-50 mg tablet Discontinued 1 {tbl} PO DAILY February 08, 2021 1:00am October 16, 2023 1:53pm Start: 09-20-2005 End: 07-21-2024 CALCIUM 600 + D(3) 600 MG-20 0 UNIT TAB Take one(1) tablet two(2) times daily. 0 09/20/2005 07/21/2024 Discontinued (Other) icosapent ethyl 500 mg oral capsule (20 sources) Start: 05-13-2024 Icosapent Ethy l (Vascepa) 0.5 gram capsule Active 2 g PO TWICE A DAY 720 May 13, 2024 12:45pm Start: 12-28-2023 End: 10-21-2024 Start: 02-07-2022 End: 12-28-2023 Icosapent Ethyl (Vascepa) 1 gram capsule Discontinued 2 g PO TWICE A DAY 360 December 24, 2023 11:39am December 28, 2023 8:55pm VASCEPA 0.5 gram capsule Active Swqlshko-Pug-Tuik-Fa-Lutein (Centrum Silver Women) 8 mg iron-400 mcg-300 mcg tablet (3 sources) Start: 03-11-2022 take 1 tablet by mouth once daily Pxsgcjuk-Vij-Mrmy-Fa-Lutein (Centrum Silver Women) 8 mg iron-400 mcg-300 mcg tablet Active 1 TABLET PO DAILY March 11, 2022 1:00am Start: 03-11-2022 take 1 tablet by byron th once daily Ceheocvv-Dju-Ocke-Fa-Lutein (Centrum Loretta yas Women) 8 mg iron-400 [...] 100 ml zoledronic acid 0.05 mg/ml injection (16 sources) Bisphosphonate Start: 12-26-2022 End: 12-29-2023 take 5 mg intravenously once Completed/Discontinued Medications Medication Drug Class(es) Dates Sig (Normalized) Sig (Original) atorvastatin 20 mg oral tablet (1 source) HMG-CoA Reductase Inhibitor Start: 09-15-2012 End: 07-21-2024 take 1 tablet by mouth once daily at bedtime atorvastatin (LIPITOR) 20 mg tablet Take 1 tablet by mouth daily at bedtime. 0 09/15/2012 07/21/2024 Discontinued (Other) calcium carbonate 1250 mg oral tablet (6 sources) Start: 10-16-2023 End: 10-19-2024 take 1 tablet by mouth every other day Calcium Carbonate 500 mg calcium (1,250 mg) tablet Discontinued 500 mg PO every other day October 16, 2023 12:00am October 19, 2024 1:03pm cholecalciferol 0.025 mg oral capsule (20 sources) Vitamin D Start: 10-16-2023 End: 10-19-2024 take 1 capsule by mouth once daily Cholecalciferol (Vitamin D3) 25 mcg (1,000 unit) capsule Discontinued 25 ug PO DAILY October 16, 2023 12:00am October 19, 2024 1:03pm Start: 11-19-2022 End: 10-16-2023 take 1 capsule [...] 08, 2021 1:00am November 19, 2022 10:28am meclizine hydrochloride 25 mg chewable tablet (16 sources) Antiemetic Start: 07-20-2016 End: 02-07-2022 take 1 tablet by mouth four times daily as needed for dizziness Meclizine 25 MG tablet,chewable Discontinued 25 mg PO 4 TIMES DAILY NEEDED as needed for Dizziness 16 July 20, 2016 12:08am February 07, 2022 10:23am Lxioytzf-Let-Rgbm-Fa -Vit K-Lut (Centrum Silver Women) 8 mg iron-400 mcg-300 mcg tablet (10 sources) Start: 03-11-2022 End: 01-10-2023 Kgitcsyj-Shh-Aajb-Fa- Vit K-Lut (Centrum Silver Women) 8 mg iron-400 mcg-300 mcg tablet Discontinued 1 {tbl} PO DAILY March 11, 2022 1:00am January 10, 2023 2:28pm Start: 03-11-2022 End: 01-10-2023 take 1 tablet by mouth once daily Giicglfv-Fra-Cddb-Fa-Vit K-Lut (Centrum Silver Women) 8 mg iron-400 mcg-300 mcg tablet Discontinued 1 TABLET PO DAILY March 11, 2022 1:00am January 10, 2023 2:28pm Start: 03-11-2022 End: 01-10-2023 take 1 tablet by mouth once daily Kyiyoqar-Qdj-Nzub-Fa-Vit K-Lut (Centrum Silver Women) 8 mg iron-400 mcg-300 mcg tablet Discontinued 1 TABLET PO DAILY March 11, 2022 12:00am January 10, 2023 1:28pm Start: 03-11-2022 take 1 tablet by byron th once daily Iduxisah-Iaq-Lpef-Fa-Vit K-Lut (Centrum Silver Women) 8 mg iron-400 mcg-300 mcg tablet Active 1 TABLET PO DAILY March 11, 2022 12:00am [place] 0-Tkk-Paw-Fish-Turmeri c (7 sources) Start: 03-11-2022 End: 01-10-2023 [place] 5-Sdv-Zje-Fish-Turmeri c Discontinued 0 PO .COMPLEX March 11, 2022 1:00am January 10, 2023 2:28pm orally; 720mg Start: 03-11-2022 End: 01-10-2023 [place] 7-Qwy-Ddi-Fish-Turmeri c Discontinued 0 PO .COMPLEX March 11, 2022 12:00am January 10, 2023 1:28pm orally; 720mg Start: 03-11-2022 [place] 3-Dha-Ep q-Ovzp-Lvrvdnjh Active 0 PO .COMPLEX March 11, 2022 1:00am orally; 720mg Start: 03-11-2022 [place] 3-Dha-Ep v-Umik-Tmrcclnm Active 0 PO .COMPLEX March 11, 2022 12:00am orally; 720mg [place] 2-Kkr-Max-Fish-Turmeric 417 mg-120 mg- 276 mg-600 mg capsule (6 sources) Start: 03-11-2022 End: 01-10-2023 [place] 6-Lys-Ddv-Fish-Turmeric 417 mg-120 mg- 276 mg-600 mg capsule Discontinued 0 PO .COMPLEX March 11, 2022 1:00am January 10, 2023 2:28pm orally; 720mg levothyroxine sodium 0.112 mg oral tablet (20 sources) l-Thy roxin e Start: 02-10-2022 End: 10-19-2024 take 1 tablet by mouth once daily Levothyroxine 112 mcg tablet Discontinued 112 ug PO DAILY 90 0 July 12, 2024 7:45am October 19, 2024 1:20pm Start: 02-08-2021 End: 02-10-2022 take 6 tablets [...] 7.5 tablets per one week. LEVOTHYROXINE SODIUM [id number] Ashley Kang NP Vitamin K2 45 mcg capsule (6 sources) Start: 11-19-2022 End: 10-16-2023 Vitamin K2 45 mcg capsule Discontinued 45 ug PO DAILY November 19, 2022 12:00am October 16, 2023 1:54pm Problems Active Problems Problem Classification Problem Date Documented Da te Episodic/Chronic Cancer of breast (1 source) Malignant tumor of breast ; Translations: [Malignant neoplasm of unspecified site of unspecified female breast] Onset: 07-13-2004 06-22-2024 Chronic Cancer of breast (2 sources) History of malignant neoplasm of breast; Translations: [Personal history of malignant neoplasm of breast] Onset: 07-21-2024 07-21-2024 Episodic Cardiac dysrhythmias (1 source) Unspecified atrial flutter; Translations: [Unspecified atrial flutter] Onset: 09-30-2024 Chronic Complications of surgical procedures or medical care (20 sources) Postoperative hypothyroidism; Translations: [Postprocedural hypothyroidism] Onset: 06-03-2011 Chronic Disorders of lipid metabolism (18 sources) Mixed hyperlipidemia; Translations: [Mixed hyperlipidemia] Onset: 06-03-2011 Chronic Essential hypertension (2 sources) Essential hypertension; Translations: [Essential (primary) hypertension] Onset: 06-03-2011 06-03-2011 Chronic Nutritional deficiencies (19 sources) Vitamin D deficiency; Translations: [Vitamin D deficiency, unspecified] Onset: 10-19-2024 03-11-2022 Chronic Osteoporosis (20 sources) Osteoporosis; Translations: [Age-related osteoporosis without current pathological fracture] Onset: 10-19-2024 03-11-2022 Chronic Other gastrointestinal disorders (2 sources) Dysphagia; Translations: [Dysphagia, unspecified] 10-19-2024 Episodic Other liver diseases (17 sources) Steatosis of liver; Translations: [Fatty (change of) liver, not elsewhere classified] 02-08-2021 Chronic Other liver diseases (4 sources) Fatty (change of) liver, not elsewhere classified; Translations: [Other chronic nonalcoholic liver disease] Onset: 11-16-2024 Chronic Other nutritional; endocrine; and metabolic disorders (16 sources) Obesity; Translations: [Obesity, unspecified] 02-08-2021 Chronic Other nutritional; endocrine; and metabolic disorders (1 source) Metabolic syndrome X; Translations: [Dysmetabolic syndrome X] Onset: 03-20-2006 06-22-2024 Chronic Residual codes; unclassified (1 source) Patient encounter status; Translations: [Other specified personal risk factors, not elsewhere classified] 07-21-2024 Episodic Residual codes; unclassified (1 source) Other specified personal risk factors, not elsewhere classified; Translations: [SHELL MACHINE OPERATOR exam for high-risk Medicare patient] Onset: 07-21-2024 Episodic Spondylosis; intervertebral disc disorders; other back problems (6 sources) Backache; Translations: [Dorsalgia, unspecified] 10-16-2023 Episodic Unclassified (1 source) Malignant tumor of [...] cholecystitis] Onset: 03-04-2006 Resolved: 06-03-2011 06-03-2011 Episodic Other screening for suspected conditions (not mental disorders or infectious disease) (1 source) Encounter for screening mammogram for malignant neoplasm of breast; Translations: [Encounter for screening mammogram for malignant neoplasm of breast] Onset: 06-21-2024 Episodic Thyroid disorders (2 sources) Hypothyroidism; Translations: [Non-toxic uninodular goiter] Onset: 06-21-2005 Resolved: 06-03-2011 03-27-2016 Chronic Unclassified (1 source) History of thyroidectomy; Translations: [Acquired absence of other organs] Onset: 03-27-2016 03-27-2016 Episodic Results Test Name Value Interpretation Reference Range Facility ABD Limited w/ Elastographyo 11-03-2024 ABD Limited w/ Elastography [facility] Imaging Services [address] [place] [address] ABD Limited w/ Elastography MR#: [id number] Acct: [id number] Name: JOSE MABRY Rep #: [id number] : 1945 F 79 From: Dameon sabillon MD PCP: Dr. Nithin Brandon MD Status: REG CLI Study: ABD Limited w/ Elastography Date of Exam: 10/25 Exam# [id number] Ordering Dr: Lake Campos MD PROCEDURE: ABD LIMITED W/ ELASTOGRAPHY REASON FOR EXAM: ELASTOGRAPHY PLEASE Fatty infiltration of the liver. COMPARISON: None. TECHNIQUE: Procedure Code: USABDLELPARO Modality: US Procedure: ABD LIMITED W/ ELASTOGRAPHY Right upper quadrant abdominal ultrasound. [facility] ElastQ [facility] shear wave elastography for non- invasive assessment of liver tissue stiffness. [facility] EPIQ Elite. FINDINGS: LIVER: Size: Unremarkable Length: 13.9 cm Echotexture: Diffusely echogenic suggesting fatty infiltration Contour: Normal Lesions: None identified Elastography: EQI Med: 5.3 kPa EQI Med Scooby: 1.32 m/s IQR/Med: 22 %* GALLBLADDER: Surgically absent. COMMON BILE DUCT: Dilated measuring up to 10 mm. This is within normal range for the post cholecystectomy state. . PANCREAS: Normal Visualized portions of the right kidney are unremarkable. No right upper quadrant ascites. US/ABD Limited w/ Elastography IMPRESSION: NO TO MILD HEPATIC FIBROSIS Diffuse fatty infiltration of the liver. Reference Values: SRU <1.37 m/s (5.7kPa): No to mild fibrosis 1.37 m/s - 2.2 m/s: Moderate to severe fibrosis >2.2 m/s (15kPa): Significant fibrosis / cirrhosis METAVIR Score F2 or higher: 1.34 m/s (5.7kPa) F3 or higher: 1.55 m/s (7.3kPa) F4: 1.80 m/s (10kPa) * If the IQR/Med is >30%, the variance in the measurements is a large and the accuracy of the measurement may be in question. Reading Location: [facility] CC: Dr. Nithin Brandon MD; Dr. Lake Campos MD Brick Extruder Operator: Signed Normal [facility] Endocrinology Visit Reporton 10-19-2024 Endocrinology Visit Report [facility] [address] [place] [address] OFFICE VISIT Date of Service: 10/19/24 MR#: [id number] Acct: [id number] Name: JOSE MABRY Rep #: [id number] : 1945 Provider: Nico Swanson Age/Sex: 79/F Location: [facility] – [place] Status: Signed Intake Vital Signs 10/16/23 13:50 01/15/24 13:03 10/19/24 13:01 Height 5 ft 4 in 5 ft 4 in 5 ft 4 in Weight: 167 lb BMI 28.6 BP 146/82 H Blood Pressure Location Lt brachial Position Sitting Pulse 78 Pulse Source Monitor Pulse Oximetry (%) 96 Oxygen Delivery Method room air Intake Visit Reasons: 1 Y FU Chief Complaint: Thyroid, bone Hose Tender Required: No Accompanied by: Self Is patient in pain?: Yes (Low Back) Pain scale (1-10): 3 Allergies No Known Allergies Allergy (Verified 10/19/24 12:59) Medications ???Medication ???Instructions ???Recorded ???Confirmed ???Type atenolol 25 mg tablet 25 mg PO DAILY 07/19/16 10/19/24 H istory zoledronic acid 5 mg/100 mL in See Rx Instructions .Route ONCE 10/19/24 Rx mannitol 5 %-water intravenous #100 mL piggybck Vascepa 0.5 gram capsule 2 g (4 x 0.5 gram) PO BID #720 cap s 05/13/24 10/19/24 Rx (icosapent ethyl) aspirin 81 mg tablet,delayed 81 mg PO QDAY 10/19/24 10/19/24 Hi story release (Adult Aspirin Regimen) calcium 600 mg (as carbonate)-vit 1 tab PO QAM 10/19/24 10/19/24 Hi story D3 20 mcg (800 unit) chewable tablet (Caltrate plus D) levothyroxine 112 mcg tablet 112 mcg PO DAILY #90 tabs 10/19/24 10/19/24 Rx Have you fallen in the past year?: No PFSH Medical History (Updated 10/19/24 @ 13:[address] Lake Campos MD) Difficulty swallowing Back pain Vitamin D deficiency Osteoporosis Mixed [...] participate in: none HPI HPI Chief Complaint: Thyroid, bone Details: JOSE MABRY, is a 79 F who presents to the office today for follow up. She was diagnosed with breast cancer in 2003. During investigation she was found to have multinodular goiter. FNA was inconclusive. She had total thyroidectomy with Dr. Eddy in 2005. She is taking levothyroxine 112 mcg daily. TSH 2.16 in July. She has osteoporosis: Lumbar Spine (L1-L4):??? g/cm2 (0.927)??? /??? T-score (-0.8)??? /??? Z-score (1.6) Findings are suggestive of normal bone density with a low fracture risk. Left Femur Total:??? g/cm2 (0.723)??? /??? T-score (-1.8)??? /??? Z-score (0.0) Left Femoral Neck:??? g/cm2 (0.571)??? /??? T-score (-2.5)??? /??? Z-score (-0.4) Right Femur Total:??? g/cm2 (0.746)??? /??? T-score (-1.6)??? /??? Z-score (0.2) Right Femoral Neck:??? g/cm2 (0.569)??? /??? T-score (-2.5)??? /??? Z-score (-0.4) FRAX 16% and 5.2% She has received 2 infusions of Reclast, next is due in December. She isn't feeling her best. She had UTI that was asymptomatic and she is feeling low energy and having pain in her back and hips. She also reports difficulty swallowing. ROS Const Constitutional: Positive for fatigue and weakness; No weight change or change in appetite Eyes Eyes: No change in vision ENT ENT: No hearing loss, nasal congestion or difficulty swallowing Cardio Cardiology: No chest pain at rest, chest pain with exertion or shortness of breath Musc Musculoskeletal: Positive for joint pain and back pain; No numbness Neuro Neurology: Positive for weakness; No memory loss or numbness Psych Psychiatric: No change in appetite, No memory loss and No Thoughts of harming yourself/Others Resp Respiratory: No cough or chest congestion Gastro GI: Positive for other (trouble swallowing); No difficulty swallowing Genitourinary-Fema le: No burning urination Skin (more content not included)... Normal [facility] Cardiovascular stress test r eportOrdered By: Pete Benton on 09-22-2024 Study report [facility] Cardiovascular Services [address] [place] [address] MR#: [id number] Acct: [id number] Name: JOSE MABRY Rep #: [id number] : 1945 79 From: Pete Benton MD Primary Care: Dr. Nithin Brandon MD Status: REG CLI Referring Dr: Nithin Brandon MD Sex: F C Stress Test Report Pharmacologic myocardial perfusion stress test. 79-year-old lady with a history of chest pain Resting EKG demonstrates sinus rhythm with a left bundle branch block with a rate of 78 bpm. Resting blood pressure is 134/70 mmHg. 0.4 mg of regadenoson was infused per usual protocol followed by rapid intravenous saline flush injection. Continuous EKG monitoring was performed. The maximum heart rate [id number] bpm which was 78% of max impacted heart rate the maximum workload was 1 metabolic equivalent. At rest there were no ST or T wave changes noted to suggest ischemia and at peak infusion nonspecific ST changes were noted which did not meet the criteria for ischemia. No clinical angina is noted. The final blood pressure was 124/66 mmHg. Myocardial perfusion protocol. 11.7 mCi of technetium 99m sestamibi was injected at rest. 0.4 mg of regadenoson was infused per usual protocol. At peak infusion 33.4 mCi of technetium 99m sestamibi was injected stress images were obtained stress and rest images were reconstructed and compared in the short axis vertical long and horizontal long axis. Gated images were also obtained. Perfusion SPECT analysis: Review of the stress images demonstrate normal uptake of tracer noted in all areas of the myocardium. The resting images similar demonstrated normal uptake of tracer noted in all areas of the myocardium. No areas of reversibility are noted to suggest ischemia and no previous infarct is noted. Gated SPECT analysis: The gated ejection fraction is 71%. Conclusion: Normal pharmacologic myocardial perfusion stress test. Preserved ejection fraction. 09/22/241531 Date _ Pete Benton MD CC: Dr. Nithin Brandon MD ~ Date Dictated: 09/22/241529 Date Transcribed: 09/22/241529 Brick Extruder Operator: CO Signed [facility] Work Phone: Echo Completeon 09-22-2024 Echo Complete [facility] Cardiovascular Services [address] [place] [address] Echo Complete 09/22/24926 MR#: [id number] Acct: [id number] Name: JOSE MABRY Rep #: [id number] : 1945 79 From: Pete eBnton MD Attending Dr: Dr. Nithin Brandon MD Status: REG CLI Ordering Dr: Nithin Brandon MD Date: 09/22/24 Location: [facility] Sex: F C Admitted: Reason For Study Reason For Study: ATRIAL FLUTTER Procedure This was a 2D Doppler, Color Flow transthoracic echocardiogram. The study was technically difficult. Exam performed in department. Left Ventricle Normal LV size. The left ventricular ejection fraction is 60 %. No regional wall motion abnormalities noted. Right Ventricle Normal RV size. Normal systolic function. Atria Normal left atrium. Normal right atrium. Mitral Valve Normal mitral valve. Tricuspid Valve Normal tricuspid valve. Mild tricuspid valve insufficiency. Pulmonary artery systolic pressure is 23 mmHg. Aortic Valve Trisinus/trileafle t aortic valve. Mild focal aortic valve calcification. Mild (1+) eccentric aortic valve insufficiency. Pulmonic Valve Normal pulmonic valve. Great Vessels Normal aortic root. The pulmonary artery is normal size. Inferior vena cava collapse with respiration. Pericardium/Pleura l No pericardial effusion. MMode/2D Measurements Calculations LVIDd: 4.1 cm IVSd: 1.2 cm LVOT diam: 1.9 cm LVIDs: 2.9 cm LVPWd: 0.97 cm LVOT area: 2.7 cm2 RVDd: 3.0 cm FS: 29.8 % asc Aorta Diam: 2.8 cm LAV(MOD-sp4): 12.1 ml LVAd ap4: 16.2 cm2 LVLd ap4: 7.2 cm EDV(MOD-sp4): 30.6 ml EDV(sp4-el): 31.1 ml LVAs ap4: 9.3 cm2 LVLs ap4: 5.6 cm ESV(MOD-sp4): 13.3 ml ESV(sp4-el): 13.1 ml EF(MOD-sp4): 56.4 % EF(sp4-el): 57.7 % LVAd ap2: 16.9 cm2 SV(MOD-sp4): 17.3 ml SV(MOD-sp2): 19.3 ml LVLd ap2: 6.9 cm SI(MOD-sp4): 9.8 ml/m2 SI(MOD-sp2): 10.9 ml/m2 EDV(MOD-sp2): 34.5 ml EDV(sp2-el): 35.4 ml LVAs ap2: 10.3 cm2 LVLs ap2: 5.8 cm ESV(MOD-sp2): 15.2 ml ESV(sp2-el): 15.5 ml EF(MOD-sp2): 56.0 % SV(sp4-el): 17.9 ml Ao sinus diam: 3.[address] Junction: 2.6 cm TAPSE: 1.6 cm LA A4 area: 8.0 cm2 RA A4 area: 7.9 cm2 Doppler Measurements Calculations MV A max scooby: 101.7 cm/sec Lat Peak E' Scooby: 5.2 cm/sec Med Peak E' Scooby: 5.5 cm/sec Ao V2 max: 119.2 cm/sec LV V1 max: 83.0 cm/sec SV(LVOT): 47.6 ml Ao max P.7 mmHg LV V1 max P.8 mmHg Ao V2 mean: 83.8 cm/sec LV V1 mean P.4 mmHg Ao mean P.0 mmHg LV V1 mean: 55.8 cm/sec Ao V2 VTI: 20.8 cm LV V1 VTI: 17.4 cm AV (velocity ratio): 0.84 ELZA(I,D): 2.3 cm2 ELZA(V,D): 1.9 cm2 TV V2 max: 217.8 cm/sec PA V2 max: 94.4 cm/sec TV max P.0 mmHg ECHO/Echo Complete Interpretation Summary Normal LV size. The left ventricular ejection fraction is 60 %. Mild focal aortic valve calcification. Mild (1+) eccentric aortic valve insufficiency. Ordering Physician: Ranney, Christopher Referring Physician: Nithin Brandon Performed By: Yue Ross RDCS and Student 09/22/24 1254 Date Pete Benton MD CC: Dr. Nithin Brandon MD Date Dictated: 09/22/24926 Date Transcribed: 09/22/241253 Brick Extruder Operator: Signed Normal [facility] Echocardiogram study reportO rdered By: Pete Benton on 09-22-2024 Study report [facility] Cardi[facility] [address] [place] [address] Echo Complete 09/22/24926 MR#: [id number] Acct: [id number] Name: JOSE MABRY Rep #:[id number] : 1945 79 From: Pete Palomino Attending Dr: Dr. Nithin Brandon MD Status: REG CLI Ordering Dr: Nithin Brandon MD Mauro e: 09/22/24 Location: [facility] Sex: F C Admitted: Reason For Study Reason For Study: ATRIAL FLUTTER Procedure This was a 2D Doppler, Color Flow transthoracic echocardiogram. The study was technically difficult. Exam performed in department. Left Ventricle Normal LV size. The left ventricular ejection fraction is 60 %. No regional wallmotion abnormalities noted. Right Ventricle Normal RV size. Normal systolic function. Atria Normal left atrium. Normal right atrium. Mitral Valve Normal mitral valve. Tricuspid Valve Normal tricuspid valve. Mild tricuspid valve insufficiency. Pulmonary artery systolic pressure is 23 mmHg. Aortic Valve Trisinus/trileafle t aortic valve. Mild focal aortic valve calcification. Mild (1+) eccentric aortic valve insufficiency. Pulmonic Valve Normal pulmonic valve. Great Vessels Normal aortic root. The pulmonary artery is normal size. Inferior vena cava collapse with respiration. Pericardium/Pleura l No pericardial effusion. MMode/2D Measurements & Calculations LVIDd: 4.1 cm IVSd: 1.2 cm LVOT diam: 1.9 cm LVIDs: 2.9 cm LVPWd: 0.97 cm LVOT area: 2.7 cm2 RVDd: 3.0 cm FS: 29.8 % asc Aorta Diam: 2.8 cm LAV(MOD-sp4): 12.1 ml LVAd ap4: 16.2 cm2 LVLd ap4: 7.2 cm EDV(MOD-sp4): 30.6 ml EDV(sp4-el): 31.1 ml LVAs ap4: 9.3 cm2 LVLs ap4: 5.6 cm ESV(MOD-sp4): 13.3 ml ESV(sp4-el): 13.1 ml EF(MOD-sp4): 56.4 % EF(sp4-el): 57.7 % LVAd ap2: 16.9 cm2 SV(MOD-sp4): 17.3 ml SV(MOD-sp2): 19.3 ml LVLd ap2: 6.9 cm SI(MOD-sp4): 9.8 ml/m2 SI(MOD-sp2): 10.9 ml/m2 EDV(MOD-sp2): 34.5 ml EDV(sp2-el): 35.4 ml LVAs ap2: 10.3 cm2 LVLs ap2: 5.8 cm ESV(MOD-sp2): 15.2 ml ESV(sp2-el): 15.5 ml EF(MOD-sp2): 56.0 % SV(sp4-el): 17.9 ml Ao sinus diam: 3.[address] Junction: 2.6 cm TAPSE: 1.6 cm LA A4 area: 8.0 cm2 RA A4 area: 7.9 cm2 Doppler Measurements & Calculations MV A max scooby: 101.7 cm/sec Lat Peak E' Scooby: 5.2 cm/sec Med Peak E' Scooby: 5.5 cm/sec Ao V2 max: 119.2 cm/sec LV V1 max: 83.0 cm/sec SV(LVOT): 47.6 ml Ao max P.7 mmHg LV V1 max P.8 mmHg Ao V2 mean: 83.8 cm/sec LV V1 mean P.4 mmHg Ao mean P.0 mmHg LV V1 mean: 55.8 cm/sec Ao V2 VTI: 20.8 cm LV V1 VTI: 17.4 cm AV (velocity ratio): 0.84 ELZA(I,D): 2.3 cm2 ELZA(V,D): 1.9 cm2 TV V2 max: 217.8 cm/sec PA V2 max: 94.4 cm/sec TV max P.0 mmHg ECHO/Echo Complete Interpretation Summary Normal LV size. The left ventricular ejection fraction is 60 %. Mild focal aortic valve calcification. Mild (1+) eccentric aortic valve insufficiency. Ordering Physician: Nithin Brandon Referring Physician: Nithin Brandon Performed By: Yue Ross RDCS and Student 09/22/244 Date _ Pete Benton MD CC: Dr. Nithin Brandon MD ~ Date Dictated: 09/22/24926 Date Transcribed: 09/22/24 125 Brick Extruder Operator: Signed [facility] Work Phone: Stress Reporton 09-22-2024 Stress Report [facility] Cardiovascular Services [address] [place] [address] MR#: [id number] Acct: [id number] Name: JOSE MABRY Rep #: [id number] : 1945 79 From: Pete Benton MD Primary Care: Dr. Nithin Brandon MD Status: REG CLI Referring Dr: Nithin Brandon MD Sex: F C Stress Test Report Pharmacologic myocardial perfusion stress test. 79-year-old lady with a history of chest pain Resting EKG demonstrates sinus rhythm with a left bundle branch block with a rate of 78 bpm. Resting blood pressure is 134/70 mmHg. 0.4 mg of regadenoson was infused per usual protocol followed by rapid intravenous saline flush injection. Continuous EKG monitoring was performed. The maximum heart rate was 112 bpm which was 78% of max impacted heart rate the maximum workload was 1 metabolic equivalent. At rest there were no ST or T wave changes noted to suggest ischemia and at peak infusion nonspecific ST changes were noted which did not meet the criteria for ischemia. No clinical angina is noted. The final blood pressure was 124/66 mmHg. Myocardial perfusion protocol. 11.7 mCi of technetium 99m sestamibi was injected at rest. 0.4 mg of regadenoson was infused per usual protocol. At peak infusion 33.4 mCi of technetium 99m sestamibi was injected stress images were obtained stress and rest images were reconstructed and compared in the short axis vertical long and horizontal long axis. Gated images were also obtained. Perfusion SPECT analysis: Review of the stress images demonstrate normal uptake of tracer noted in all areas of the myocardium. The resting images similar demonstrated normal uptake of tracer noted in all areas of the myocardium. No areas of reversibility are noted to suggest ischemia and no previous infarct is noted. Gated SPECT analysis: The gated ejection fraction is 71%. Conclusion: Normal pharmacologic myocardial perfusion stress test. Preserved ejection fraction. 09/22/24 153 Date Pete Benton MD CC: Dr. Nithin Brandon MD Date Dictated: 09/22/241529 Date Transcribed: 09/22/241529 Brick Extruder Operator: CO Signed Normal [facility] Chest PA and Lateralon 08-19 Chest PA and Lateral [facility] Imaging Services [address] [place] [address] [id number] Chest PA and Lateral MR#: [id number] Acct: [id number] Name: JOSE MABRY Rep #: [id number] : 1945 F 79 From: Kiel Roth MD PCP: Dr. Nithin Brandon MD Status: REG CLI Study: Chest PA and Lateral Date of Exam: 08/19/24 Exam# [id number] Ordering Dr: Nithin Brandon EXAM: XR Chest, [...] IMPRESSION: No acute cardiopulmonary process. Reading Location: [facility] CC: Dr. Nithin Brandon MD Brick Extruder Operator: Signed Normal [facility] Bilirubin, Directon 08-11-19 25 Bilirubin.direct [Mass/Vol] 0.10 mg/dL Normal 0.00-0.30 [facility] Comment on above: Performed By: #### L 500.4050, L501.9520, L501.4700, L100.0100, L501.9985 #### [facility] Laboratory [address] [place], [address] Comprehensive Metabolic Prof ilon 08-10-2024 Albumin [Mass/Vol] 4.4 g/dL Normal 3.4-4.8 [facility] Comment on above: Performed By: #### L 500.4050, L501.9520, L501.4700, L100.0100, L501.9985 #### [facility] [address] [place], [address] Albumin/Globulin [Mass ratio] 1.6 {ratio} Normal 0.9-2.4 [facility] Comment on above: Performed By: #### L 500.4050, L501.9520, L501.4700, L100.0100, L501.9985 #### [facility] [address] [place], [address] ALK PHOS 45 U/L Normal 35-104 [facility] Comment on above: Performed By: #### L 500.4050, L501.9520, L501.4700, L100.0100, L501.9985 #### [facility] [address] [place], [address] ALT [Catalytic activity/Vol] 13 U/L Normal <=34 [facility] Comment on above: Performed By: #### L 500.4050, L501.9520, L501.4700, L100.0100, L501.9985 #### [facility] [address] [place], [address] AST [Catalytic activity/Vol] 22 U/L Normal <=31 [facility] Comment on above: Performed By: #### L 500.4050, L501.9520, L501.4700, L100.0100, L501.9985 #### [facility] [address] [place], [address] Bilirubin [Mass/Vol] 0.28 mg/dL Normal 0.00-1.30 [facility] Comment on above: Performed By: #### L 500.4050, L501.9520, L501.4700, L100.0100, L501.9985 #### [facility] [address] [place], [address] BUN/CRE 26.8 RATIO High 10-20 [facility] Comment on above: Performed By: #### L 500.4050, L501.9520, L501.4700, L100.0100, L501.9985 #### [facility] [address] [place], [address] Calcium [Mass/Vol] 9.1 mg/dL Normal 7.6-11.0 [facility] Comment on above: Performed By: #### L 500.4050, L501.9520, L501.4700, L100.0100, L501.9985 #### [facility] [address] [place], [address] Chloride [Moles/Vol] 101 mmol/L Normal 98-108 [facility] Comment on above: Performed By: #### L 500.4050, L501.9520, L501.4700, L100.0100, L501.9985 #### [facility] [address] [place], [address] CO2 [Moles/Vol] 23.5 mmol/L Normal 21.0-32.0 [facility] Comment on above: Performed By: #### L 500.4050, L501.9520, L501.4700, L100.0100, L501.9985 #### [facility] [address] [place], [address] Creatinine [Mass/Vol] 0.89 mg/dL Normal 0.70-1.20 [facility] Comment on above: Performed By: #### L 500.4050, L501.9520, L501.4700, L100.0100, L501.9985 #### [facility] [address] [place], [address] GAP 12 Normal 5-15 [facility] Comment on above: Performed By: #### L 500.4050, L501.9520, L501.4700, L100.0100, L501.9985 #### [facility] [address] [place], [address] GFR/1.73 sq M.predicted among non-blacks MDRD (S/P/Bld) [Vol rate/Area] 67 mL/min/{1.73_m2} Normal >60 [facility] Comment on above: Result Comment: mL/m in/1.73m2 CKD-EPI Creatinine Equation (2020) Performed By: #### L 500.4050, L501.9520, L501.4700, L100.0100, L501.9985 #### [facility] [address] [place], [address] Globulin (S) [Mass/Vol] 2.7 g/dL Normal 2.2-4.2 [facility] Comment on above: Performed By: #### L 500.4050, L501.9520, L501.4700, L100.0100, L501.9985 #### [facility] [address] [place], [address] Glucose [Mass/Vol] 95 mg/dL Normal 70-99 [facility] Comment on above: Performed By: #### L 500.4050, L501.9520, L501.4700, L100.0100, L501.9985 #### [facility] [address] [place], [address] Potassium [Moles/Vol] 4.0 mmol/L Normal 3.3-5.1 [facility] Comment on above: Result Comment: Hemo lysis present, Results??could be affected. ?? Performed By: #### L 500.4050, L501.9520, L501.4700, L100.0100, L501.9985 #### [facility] [address] [place], [address] Sodium [Moles/Vol] 137 mmol/L Normal 133-145 [facility] Comment on above: Performed By: #### L 500.4050, L501.9520, L501.4700, L100.0100, L501.9985 #### [facility] [address] [place], [address] T PROT 7.0 g/dL Normal 5.9-8.4 [facility] Comment on above: Performed By: #### L 500.4050, L501.9520, L501.4700, L100.0100, L501.9985 #### [facility] [address] [place], [address] Urea nitrogen [Mass/Vol] 24 mg/dL High 4- [facility] Comment on above: Performed By: #### L 500.4050, L501.9520, L501.4700, L100.0100, L501.9985 #### [facility] [address] [place], [address] Thyroid Stim Hormone (TSH)on 08-10-2024 TSH 2.160 uIU/mL Normal 0.300-4.200 [facility] Comment on above: Performed By: #### L 500.4050, L501.9520, L501.4700, L100.0100, L501.9985 ####[facility] [address] [place], [address] Absolute lymphocyte countOrd ered By: Giselle Paredes on 08-09-2024 Lymphocytes Auto (Unsp spec) [#/Vol] 2.71 10*3/uL 0.83-4.51 [facility] Absolute neutrophil countOrd ered By: Giselle Paredes on 08-09-2024 Neutrophils (Bld) [#/Vol] 5.1 10*3/uL 2.0-7.7 [facility] Anion gap in Serum or Plasma Ordered By: Giselle Paredes on 08-09-2024 Anion gap [Moles/Vol] 12 mmol/L 5-15 [facility] Automated lymphocyte count a s percentage of total leukocytesOrdered By: Giselle Paredes on 08-09-2024 Lymphocytes/100 WBC Auto (Unsp spec) 30.5 % - [facility] BUN/creatinine ratioOrdered By: Giselle Paredes on 08-09-2024 Urea nitrogen/Creatinine [Mass ratio] 26.8 mg/mg High 10-20 [facility] Basophil percentageOrdered B y: Giselle Junelatrice on 08-09-2024 Basophils/100 WBC (Bld) 0.7 % 0-1 [facility] Bilirubin directOrdered By: Gisellelyndon Paredes on 08-09-2024 Bilirubin.direct [Mass/Vol] 0.10 mg/dL 0.00-0.30 [facility] Bilirubin, totalOrdered By: Giselle Paredes on 08-09-2024 Bilirubin [Mass/Vol] 0.28 mg/dL 0.00-1.30 [facility] CBC W/Diff, Automatedon 07-25 Absolute Lymph 2.71 X10 3/uL Normal 0.83-4.51 [facility] Comment on above: Performed By: #### L 500.4050, L501.9520, L501.4700, L100.0100, L501.9985 #### [facility] [address] [place], [address] Absolute Neut 5.1 X10 3/uL Normal 2.0-7.7 [facility] Comment on above: Performed By: #### L 500.4050, L501.9520, L501.4700, L100.0100, L501.9985 #### [facility] [address] [place], [address] Basophils/100 WBC (Bld) 0.7 % Normal 0-1 [facility] Comment on above: Performed By: #### L 500.4050, L501.9520, L501.4700, L100.0100, L501.9985 #### [facility] [address] [place], [address] Eosinophils/100 WBC (Bld) 1.1 % Normal 0-5 [facility] Comment on above: Performed By: #### L 500.4050, L501.9520, L501.4700, L100.0100, L501.9985 #### [facility] [address] [place], [address] Erythrocyte distribution width (RBC) [Ratio] 13.2 % Normal 11.6-14.6 [facility] Comment on above: Performed By: #### L 500.4050, L501.9520, L501.4700, L100.0100, L501.9985 #### [facility] [address] [place], [address] Hematocrit (Bld) [Volume fraction] 40.9 % Normal 37-47 [facility] Comment on above: Performed By: #### L 500.4050, L501.9520, L501.4700, L100.0100, L501.9985 #### [facility] [address] [place], [address] Hemoglobin (Bld) [Mass/Vol] 13.8 g/dL Normal 12.0-15.0 [facility] Comment on above: Performed By: #### L 500.4050, L501.9520, L501.4700, L100.0100, L501.9985 #### [facility] [address] [place], [address] IG% 0.300 Normal 0.0-0.9 [facility] Comment on above: Result Comment: IG% - Immature Granulocytes (promyelocytes, myelocytes and metamyelocytes) > 1% indicates that a LEFT SHIFT is Present. Performed By: #### L 500.4050, L501.9520, L501.4700, L100.0100, L501.9985 #### [facility] [address] [place], [address] Lymphocytes/100 WBC (Bld) 30.5 % Normal 19-41 [facility] Comment on above: Performed By: #### L 500.4050, L501.9520, L501.4700, L100.0100, L501.9985 #### [facility] [address] [place], [address] MCH (RBC) [Entitic mass] 29.7 pg Normal 27.0-32.0 [facility] Comment on above: Performed By: #### L 500.4050, L501.9520, L501.4700, L100.0100, L501.9985 #### [facility] [address] [place], [address] MCHC (RBC) [Mass/Vol] 33.7 g/dL Normal 32-36 [facility] Comment on above: Performed By: #### L 500.4050, L501.9520, L501.4700, L100.0100, L501.9985 #### [facility] [address] [place], [address] MCV (RBC) [Entitic vol] 88.1 fL Normal 81-99 [facility] Comment on above: Performed By: #### L 500.4050, L501.9520, L501.4700, L100.0100, L501.9985 #### [facility] [address] [place], [address] Monocytes/100 WBC (Bld) 10.3 % High 0-10 [facility] Comment on above: Performed By: #### L 500.4050, L501.9520, L501.4700, L100.0100, L501.9985 #### [facility] [address] [place], [address] Neutrophils/100 WBC (Bld) 57.1 % Normal 47-70 [facility] Comment on above: Performed By: #### L 500.4050, L501.9520, L501.4700, L100.0100, L501.9985 #### [facility] [address] [place], [address] Nucleated RBC (Bld) [#/Vol] 0 10*3/uL Normal 0-5 [facility] Comment on above: Performed By: #### L 500.4050, L501.9520, L501.4700, L100.0100, L501.9985 #### [facility] [address] [place], [address] Platelet mean volume (Bld) [Entitic vol] 9.3 fL Normal 6.2-12.0 [facility] Comment on above: Performed By: #### L 500.4050, L501.9520, L501.4700, L100.0100, L501.9985 #### [facility] [address] [place], [address] Platelets (Bld) [#/Vol] 291 10*3/uL Normal 150-450 [facility] Comment on above: Performed By: #### L 500.4050, L501.9520, L501.4700, L100.0100, L501.9985 #### [facility] [address] [place], [address] RBC (Bld) [#/Vol] 4.64 10*6/uL Normal 4.2-5.4 [facility] Comment on above: Performed By: #### L 500.4050, L501.9520, L501.4700, L100.0100, L501.9985 #### [facility] [address] [place], [address] RDW SD 42.5 fl Normal 35.1-43.9 [facility] Comment on above: Performed By: #### L 500.4050, L501.9520, L501.4700, L100.0100, L501.9985 #### [facility] [address] [place], [address] WBC (Bld) [#/Vol] 8.9 10*3/uL Normal 4.4-11.0 [facility] Comment on above: Performed By: #### L 500.4050, L501.9568, L501.4700, L100.0100, L501.9985 #### [facility] [address] [place], [address] Carbon dioxide, total [Moles /volume] in Central venous bloodOrdered By: Giselle Paredes on 08-09-2024 CO2 [Moles/Vol] 23.5 mmol/L 21.0-32.0 [facility] Chloride assayOrdered By: Calderon Paredes on 08-09-2024 Chloride [Moles/Vol] 101 mmol/L 98-108 [facility] Eosinophil percentageOrdered By: Giselle Paredes on 08-09-2024 Eosinophils/100 WBC (Bld) 1.1 % 0-5 [facility] Erythrocyte distribution wid th ratioOrdered By: Giselle Paredes on 08-09-2024 Erythrocyte distribution width (RBC) [Ratio] 13.2 % 11.6-14.6 [facility] Erythrocyte distribution wid th standard deviationOrdered By: Giselle Paredes on 08-09-2024 Erythrocyte distribution width (RBC) [Ratio] 42.5 fl 35.1-43.9 [facility] Glomerular filtration rate ( GFR) estimation/1.73 sq m using serum, plasma, or whole bOrdered By: Giselle Paredes on 08-09-2024 GFR/1.73 sq M.predicted among non-blacks MDRD (S/P/Bld) [Vol rate/Area] 67 mL/min/{1.73_m2} >60 [facility] Comment on above: mL/min/1.73m2 CKD-EP I Creatinine Equation (2020) Hematocrit Auto (Bld) [Volum e fraction]Ordered By: Giselle Paredes on 08-09-2024 Hematocrit (Bld) [Volume fraction] 40.9 % 37-47 [facility] Hemoglobin A1con 08-09-2024 HbA1c (Bld) [Mass fraction] 5.8 % High <=5.6 [facility] Comment on above: Result Comment: Norm al < 5.7 % Prediabetic 5.7 - 6.4 % Diabetic >or= 6.5 % Please note range changes. Performed By: #### L 500.2640, L501.3014, L501.4700, L100.0100, L501.9943 #### [facility] [address] [place], [address] Hemoglobin A1c percentageOrd ered By: Giselle Paredes on 08-09-2024 HbA1c (Bld) [Mass fraction] 5.8 % High <5.7 [facility] Comment on above: Normal < 5.7 % Predi abetic 5.7 - 6.4 % Diabetic >or= 6.5 % Please note range changes. Hemoglobin measurementOrdere d By: Giselle Paredes on 08-09-2024 Hemoglobin (Bld) [Mass/Vol] 13.8 g/dL 12.0-15.0 [facility] Immature granulocytes/100 WB C Auto (Bld)Ordered By: Giselle Paredes on 08-09-2024 Immature granulocytes/100 WBC (Bld) 0.300 % 0.0-0.9 [facility] Comment on above: IG% - Immature Granu locytes (promyelocytes, myelocytes and metamyelocytes) > 1% indicates that a LEFT SHIFT is Present. Laboratory - Chemistry and C hemistry - challengeOrdered By: Giselle Paredes on 08-09-2024 AST [Catalytic activity/Vol] 22 U/L <32 [facility] MCV (mean corpuscular volume ) determinationOrdered By: Giselle Paredes on 08-09-2024 MCV (RBC) [Entitic vol] 88.1 fL 81-99 [facility] Mean corpuscular hemoglobin (MCH) determinationOrdered By: Giselle Paredes on 08-09-2024 MCH (RBC) [Entitic mass] 29.7 pg 27.0-32.0 [facility] Mean corpuscular hemoglobin concentration (MCHC) determinationOrdered By: Giselle Paredes on 08-09-2024 MCHC (RBC) [Mass/Vol] 33.7 g/dL 32-36 [facility] Mean platelet volume determi nationOrdered By: Giselle Paredes on 08-09-2024 Platelet mean volume (Bld) [Entitic vol] 9.3 fL 6.2-12.0 [facility] Monocyte percentageOrdered B y: Giselle Paredes on 08-09-2024 Monocytes/100 WBC (Bld) 10.3 % High 0-10 [facility] Neutrophil percentageOrdered By: Giselle Paredes on 08-09-2024 Neutrophils/100 WBC (Bld) 57.1 % 47-70 [facility] Nucleated red blood cell per centageOrdered By: Giselle Paredes on 08-09-2024 Nucleated RBC/100 WBC (Bld) [Ratio] 0 % 0-5 [facility] Platelet countOrdered By: Calderon Paredes on 08-09-2024 Platelets (Bld) [#/Vol] 291 10*3/uL 150-450 [facility] Potassium measurement (mass/ volume)Ordered By: Giselle Paredes on 08-09-2024 Potassium (Unsp spec) [Mass/Vol] 4.0 mmol/L 3.3-5.1 [facility] Comment on above: Hemolysis present, R esults could be affected. RBC Auto (Bld) [#/Vol]Ordere d By: Giselle Paredes on 08-09-2024 RBC (Bld) [#/Vol] 4.64 10*6/uL 4.2-5.4 [facility] Serum creatinine measurement (mass/volume)Ordered By: Giselle Paredes on 08-09-2024 Creatinine [Mass/Vol] 0.89 mg/dL 0.70-1.20 [facility] Serum globulin measurementOr dered By: Giselle Paredes on 08-09-2024 Globulin (S) [Mass/Vol] 2.7 g/dL 2.2-4.2 [facility] Serum glucose measurement (m ass/volume)Ordered By: Giselle Paredes on 08-09-2024 Glucose [Mass/Vol] 95 mg/dL 70-99 [facility] Serum or plasma alanine henry otransferase (ALT) measurementOrdered By: Giselle Paredes on 08-09-2024 ALT [Catalytic activity/Vol] 13 U/L <35 [facility] Serum or plasma albumin jer urement (mass/volume)Ordered By: Giselle Paredes on 08-09-2024 Albumin [Mass/Vol] 4.4 g/dL 3.4-4.8 [facility] Serum or plasma albumin/glob ulin mass ratioOrdered By: Giselle Paredes on 08-09-2024 Albumin/Globulin [Mass ratio] 1.6 {ratio} 0.9-2.4 [facility] Serum or plasma alkaline carmen sphatase measurementOrdered By: Giselle Paredes on 08-09-2024 ALP [Catalytic activity/Vol] 45 U/L 35-104 [facility] Serum or plasma calcium jer urement (mass/volume)Ordered By: Giselle Paredes on 08-09-2024 Calcium [Mass/Vol] 9.1 mg/dL 7.6-11.0 [facility] Serum or plasma urea nitroge n measurement (mass/volume)Ordered By: Giselle Paredes on 08-09-2024 Urea nitrogen [Mass/Vol] 24 mg/dL High 4-19 [facility] Sodium levelOrdered By: Tomasa Paredes on 08-09-2024 Sodium [Moles/Vol] 137 mmol/L 133-145 [facility] TSH DL <= 0.005 mIU/L QnOrde red By: Giselle Paredes on 08-09-2024 TSH Qn 2.160 uIU/mL 0.300-4.200 [facility] Total proteinOrdered By: Stephenie Paredes on 08-09-2024 Protein [Mass/Vol] 7.0 g/dL 5.9-8.4 [facility] White blood cell (WBC) count Ordered By: Giselle Paredes on 08-09-2024 WBC (Bld) [#/Vol] 8.9 10*3/uL 4.4-11.0 [facility] CNOVon 07-21-2024 CNOV Office Visit (OBGYWM) -------- JOSE MABRY ([id number]) 1945 F Date Time Provider Department 07/21/24 10:20 AM DINA MAYA OBGYWM During your visit today, we recorded the [...] 14. AFB 26. 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 As applicable, any other physician, advance practice provider, medical student, or other health professional student that will be observing or involved in the sensitive examination for educational or training purposes was discussed with the Patient or Authorized Chief Technologist. 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 Normal [facility] Breast imaging reportOrdered By: Dameon Cain on 06-16-2024 Study report [facility] Imaging Services [address] [place] [address] SCRN MAMM (CAD)W/OLEGARIO BILAT MR#: [id number] Acct: [id number] Name: JOSE MABRY Rep #: [id number] : 1945 F 78 From: Jose Ramon Cain MD PCP: Dr. Nithin Brandon MD Status: REG CLI Study:SCRN MAMM (CAD)W/OLEGARIO BILAT Date of Exa m: 06/16/24 Exam# [id number] Ordering Dr: Prasanna Brandon MD EXAM: SCRN [...] be mailed to the patient. Reading Location: [facility] CC: Dr. Nithin Brandon MD ~ Brick Extruder Operator: Signed [facility] SCRN MAMM (CAD)W/OLEGARIO BILATo n 06-16-2024 SCRN MAMM (CAD)W/OLEGARIO BILAT [facility] Imaging Services [address] [place], [place] [address] SCRN MAMM (CAD)W/OLEGARIO BILAT MR#: [id number] Acct: [id number] Name: JOSE MABRY Rep #: [id number] : 1945 F 78 From: Dameon sabillon MD PCP: Dr. Nithin Brandon MD Status: REG CLI Study: SCRN MAMM (CAD)W/OLEGARIO BILAT Date of Exam: 05/26 05/18 Exam# [id number] Ordering Dr: Nithin Brandon EXAM: SCRN MAMM [...] be mailed to the patient. Reading Location: [place] [address] CC: Dr. Nithin Brandon MD B[employer] Extr[employer] Operator: Signed Normal [facility] Basic Metabolic Profile (BMP )on 03-22-2024 BUN/CRE 33.3 RATIO High 10-20 [facility] Comment on above: Performed By: #### L 500.4100, L501.0900, L500.2500 ####[facility] [address] [place], [address] CA,Total 9.4 mg/dL Normal 8.5-10.1 [facility] Comment on above: Performed By: #### L 500.4100, L501.0900, L500.2500 ####[facility] [address] [place], [address] Chloride [Moles/Vol] 102 mmol/L Normal 98-107 [facility] Comment on above: Performed By: #### L 500.4100, L501.0900, L500.2500 ####[facility] [address] [place], [address] CO2 [Moles/Vol] 26.0 mmol/L Normal 21.0-32.0 [facility] Comment on above: Performed By: #### L 500.4100, L501.0900, L500.2500 ####[facility] [address] [place], [address] Creatinine [Mass/Vol] 0.81 mg/dL Normal 0.55-1.02 [facility] Comment on above: Result Comment: The validity of the calculated GFR GFRAA in patients over 70 years has not been determined. Clinical correlation is essential. Performed By: #### L 500.4100, L501.0900, L500.2500 ####[facility] [address] [place], [address] EST GFR - AA 88 mL/min Normal >60 [facility] Comment on above: Result Comment: Afri can Macanese GFR Calc Performed By: #### L 500.4100, L501.0900, L500.2500 ####[facility] [address] [place], [address] GAP 9 Normal 5-15 [facility] Comment on above: Performed By: #### L 500.4100, L501.0900, L500.2500 ####[facility] [address] [place], [address] GFR/1.73 sq M.predicted among non-blacks MDRD (S/P/Bld) [Vol rate/Area] 73 mL/min/{1.73_m2} Normal >60 [facility] Comment on above: Result Comment: Non- GFR Calc Performed By: #### L 500.4100, L501.0900, L500.2500 ####[facility] [address] [place], [address] Glucose [Mass/Vol] 84 mg/dL Normal 74-106 [facility] Comment on above: Performed By: #### L 500.4100, L501.0900, L500.2500 ####[facility] [address] [place], [address] Potassium [Moles/Vol] 3.8 mmol/L Normal 3.5-5.1 [facility] Comment on above: Performed By: #### L 500.4100, L501.0900, L500.2500 ####[facility] [address] [place], [address] Sodium [Moles/Vol] 137 mmol/L Normal 136-145 [facility] Comment on above: Performed By: #### L 500.4100, L501.0900, L500.2500 ####[facility] [address] [place], [address] Urea nitrogen [Mass/Vol] 27 mg/dL High 7-18 [facility] Comment on above: Performed By: #### L 500.4100, L501.0900, L500.2500 ####[facility] [address] [place], [address] Blood urea nitrogen (BUN)/cr eatinine ratioOrdered By: Martina Doll on 03-22-2024 Urea nitrogen/Creatinine [Mass ratio] 33.3 mg/mg High 10-20 [facility] Carbon dioxide measurementOr dered By: Martina Doll on 03-22-2024 CO2 [Moles/Vol] 26.0 mmol/L 21.0-32.0 [facility] Chloride measurementOrdered By: Martina Doll on 03-22-2024 Chloride [Moles/Vol] 102 mmol/L 98-107 [facility] Estimated glomerular filtrat ion rate (GFR) AmericanOrdered By: Martina Doll on 03-22-2024 Estimated GFR (MDRD) Amer 88 mL/min >60 [facility] Comment on above: GFR Calc Glomerular filtration rate ( GFR) estimationOrdered By: Martina Doll on 03-22-2024 Estimated GFR (MDRD) Non-Af Amer 73 mL/min >60 [facility] Comment on above: Non- GFR Calc Glucose measurementOrdered B y: Martina Doll on 03-22-2024 Glucose [Mass/Vol] 84 mg/dL 74-106 [facility] High density lipoprotein (HD L) measurementOrdered By: Martina Doll on 03-22-2024 Cholesterol in HDL [Mass/Vol] 62 mg/dL >40 [facility] Comment on above: The drugs N-Acetylcy steine and Metamizole may falsely depress this assay. Reference Range HDL <40 mg/dL Low HDL Cholesterol HDL >or= 60 mg/dL High HDL Cholesterol Lipid Profileon 03-22-2024 Cholesterol [Mass/Vol] 246 mg/dL High 200 [facility] Comment on above: Result Comment: <200 mg/dL Desirable 200-240 mg/dL Borderline >240 mg/dL High Risk Performed By: #### L 500.4100, L501.0900, L500.2500 ####[facility] [address] [place], [place], [address] Cholesterol in HDL [Mass/Vol] 62 mg/dL Normal [facility] Comment on above: Result Comment: The drugs N-Acetylcysteine and Metamizole may falsely depress this assay. Reference Range HDL <40 mg/dL Low HDL Cholesterol HDL >or= 60 mg/dL High HDL Cholesterol Performed By: #### L 500.4100, L501.0900, L500.2500 ####[facility] [address] [place], [address] Cholesterol in LDL [Mass/Vol] 149 mg/dL High 0-130 [facility] Comment on above: Performed By: #### L 500.4100, L501.0900, L500.2500 ####[facility] [address] [place], [address] Cholesterol in VLDL [Mass/Vol] 35 mg/dL Normal 5-40 [facility] Comment on above: Performed By: #### L 500.4100, L501.0900, L500.2500 ####[facility] [address] [place], [address] Triglyceride [Mass/Vol] 175 mg/dL Normal [facility] Comment on above: Result Comment: The drugs N-Acetylcysteine and Metamizole may falsely depress this assay. Serum Triglycerides Reference Interval Normal <150 mg/dL Borderline high 150 - 199 mg/dL High 200 - 499 mg/dL Very High > or = 500 mg/dL Performed By: #### L 500.4100, L501.0900, L500.2500 ####[facility] [address] [place], [address] Low density lipoprotein (LDL ) cholesterol measurementOrdered By: Martina Doll on 03-22-2024 Cholesterol in LDL [Mass/Vol] 149 mg/dL High 0-130 [facility] Potassium measurementOrdered By: Martina Doll on 03-22-2024 Potassium [Moles/Vol] 3.8 mmol/L 3.5-5.1 [facility] Protein+Creatinine Ratio,Uri neon 03-22-2024 PROT:CRE RATIO 156 mg/g CRE Normal 0-200 [facility] Comment on above: Performed By: #### L 500.4100, L501.0900, L500.2500 ####[facility] [address] [place], [address] Protein (U) [Mass/Vol] 21.2 mg/dL High <11.9 [facility] Comment on above: Performed By: #### L 500.4100, L501.0900, L500.2500 ####[facility] [address] [place], [address] UR CREAT 136.00 mg/dL Normal NO RANGE EST. [facility] Comment on above: Performed By: #### L 500.4100, L501.0900, L500.2500 ####[facility] [address] [place], [address] Protein/Creatinine (U) [Mass ratio]Ordered By: Martina Doll on 03-22-2024 Urine Protein/Creatinine Ratio 156 mg/g CRE 0-200 [facility] Random urine protein measure mentOrdered By: Martina Doll on 03-22-2024 Protein (U) [Mass/Vol] 21.2 mg/dL High 0.0-11.8 [facility] Serum anion gap measurementO rdered By: Martina Doll on 03-22-2024 Anion gap [Moles/Vol] 9 mmol/L 5-15 [facility] Serum or plasma calcium jer urement (mass/volume)Ordered By: Martina Doll on 03-22-2024 Calcium [Mass/Vol] 9.4 mg/dL 8.5-10.1 [facility] Serum or plasma cholesterol measurement (mass/volume)Ordered By: Martina Doll on 03-22-2024 Cholesterol [Mass/Vol] 246 mg/dL High <200 [facility] Comment on above: <200 mg/dL Desirable 200-240 mg/dL Borderline >240 mg/dL High Risk Serum or plasma creatinine m easurement (mass/volume)Ordered By: Martina Doll on 03-22-2024 Creatinine [Mass/Vol] 0.81 mg/dL 0.55-1.02 [facility] Comment on above: The validity of the calculated GFR & GFRAA in patients over 70 years has not been determined. Clinical correlation is essential. Serum or plasma urea nitroge n measurement (mass/volume)Ordered By: Martina Doll on 03-22-2024 Urea nitrogen [Mass/Vol] 27 mg/dL High 7-18 [facility] Sodium levelOrdered By: Martina Doll on 03-22-2024 Sodium [Moles/Vol] 137 mmol/L 136-145 [facility] Triglycerides measurementOrd ered By: Martina Doll on 03-22-2024 Triglyceride [Mass/Vol] 175 mg/dL <199 [facility] Comment on above: The drugs N-Acetylcy steine and Metamizole may falsely depress this assay.Serum Triglycerides Reference Interval Normal <150 mg/dL Borderline high 150 - 199 mg/dL High 200 - 499 mg/dL Very High > or = 500 mg/dL Urine creatinine measurement (mass/volume)Ordered By: Martina Doll on 03-22-2024 Creatinine (U) [Mass/Vol] 136.00 mg/dL NO RANGE EST. [facility] Very low density lipoprotein (VLDL) cholesterol measurementOrdered By: Martina Doll on 03-22-2024 VLDL Cholesterol 35 mg/dL 5-40 [facility] Comprehensive Metabolic Prof ilon 01-08-2024 Albumin [Mass/Vol] 3.5 g/dL Normal 3.2-5.0 [facility] Comment on above: Performed By: #### L 506.1000, L500.4050, L501.9520, L506.0400 ####[facility] [address] [place], [address] Albumin/Globulin [Mass ratio] 1.1 {ratio} Normal 0.9-2.4 [facility] Comment on above: Performed By: #### L 506.1000, L500.4050, L501.9520, L506.0400 ####[facility] [address] [place], [address] ALK P 40 U/L Low 45-117 [facility] Comment on above: Performed By: #### L 506.1000, L500.4050, L501.9520, L506.0400 ####[facility] [address] [place], [address] ALT [Catalytic activity/Vol] 23 U/L Normal 13-56 [facility] Comment on above: Performed By: #### L 506.1000, L500.4050, L501.9520, L506.0400 ####[facility] [address] [place], [address] AST [Catalytic activity/Vol] 13 U/L Low 15-37 [facility] Comment on above: Performed By: #### L 506.1000, L500.4050, L501.9520, L506.0400 ####[facility] [address] [place], [address] Bilirubin [Mass/Vol] 0.40 mg/dL Normal 0.20-1.00 [facility] Comment on above: Result Comment: For patients on eltrombopag therapy, use of Dimension [place] TBIL is not recommended. Performed By: #### L 506.1000, L500.4050, L501.9520, L506.0400 ####[facility] [address] [place], [address] BUN/CRE 30.9 RATIO High 10-20 [facility] Comment on above: Performed By: #### L 506.1000, L500.4050, L501.9520, L506.0400 ####[facility] [address] [place], [address] CA,Total 9.3 mg/dL Normal 8.5-10.1 [facility] Comment on above: Performed By: #### L 506.1000, L500.4050, L501.9520, L506.0400 ####[facility] [address] [place], [address] Chloride [Moles/Vol] 106 mmol/L Normal 98-107 [facility] Comment on above: Performed By: #### L 506.1000, L500.4050, L501.9520, L506.0400 ####[facility] [address] [place], [address] CO2 [Moles/Vol] 32.0 mmol/L Normal 21.0-32.0 [facility] Comment on above: Performed By: #### L 506.1000, L500.4050, L501.9520, L506.0400 ####[facility] [address] [place], [address] Creatinine [Mass/Vol] 0.71 mg/dL Normal 0.55-1.02 [facility] Comment on above: Result Comment: The validity of the calculated GFR GFRAA in patients over 70 years has not been determined. Clinical correlation is essential. Performed By: #### L 506.1000, L500.4050, L501.9520, L506.0400 ####[facility] [address] [place], [address] EST GFR - AA 102 mL/min Normal >60 [facility] Comment on above: Result Comment: Afri can Macanese GFR Calc Performed By: #### L 506.1000, L500.4050, L501.9520, L506.0400 ####[facility] [address] [place], [address] GAP 2 Low 5-15 [facility] Comment on above: Performed By: #### L 506.1000, L500.4050, L501.9520, L506.0400 ####[facility] [address] [place], [address] GFR/1.73 sq M.predicted among non-blacks MDRD (S/P/Bld) [Vol rate/Area] 85 mL/min/{1.73_m2} Normal >60 [facility] Comment on above: Result Comment: Non- GFR Calc Performed By: #### L 506.1000, L500.4050, L501.9520, L506.0400 ####[facility] [address] [place], [address] Globulin (S) [Mass/Vol] 3.3 g/dL Normal 2.2-4.2 [facility] Comment on above: Performed By: #### L 506.1000, L500.4050, L501.9520, L506.0400 ####[facility] [address] [place], [address] Glucose [Mass/Vol] 92 mg/dL Normal 74-106 [facility] Comment on above: Performed By: #### L 506.1000, L500.4050, L501.9520, L506.0400 ####[facility] [address] [place], [address] Potassium [Moles/Vol] 3.8 mmol/L Normal 3.5-5.1 [facility] Comment on above: Performed By: #### L 506.1000, L500.4050, L501.9520, L506.0400 ####[facility] [address] [place], [address] Sodium [Moles/Vol] 141 mmol/L Normal 136-145 [facility] Comment on above: Performed By: #### L 506.1000, L500.4050, L501.9520, L506.0400 ####[facility] [address] [place], [address] T PROT 6.8 g/dL Normal 6.4-8.2 [facility] Comment on above: Performed By: #### L 506.1000, L500.4050, L501.9520, L506.0400 ####[facility] [address] [place], [address] Urea nitrogen [Mass/Vol] 22 mg/dL High 7-18 [facility] Comment on above: Performed By: #### L 506.1000, L500.4050, L501.9520, L506.0400 ####[facility] [address] [place], [address] T4 Free Directon 01-08-2024 T4 FREE DIRECT 1.49 ng/dL High 0.76-1.46 [facility] Comment on above: Performed By: #### L 506.1000, L500.4050, L501.9520, L506.0400 ####[facility] [address] [place], [address] Thyroid Stim Hormone (TSH)on 01-08-2024 TSH 1.150 uIU/mL Normal 0.358-3.740 [facility] Comment on above: Performed By: #### L 506.1000, L500.4050, L501.9520, L506.0400 ####[facility] [address] [place], [address] Vitamin D,25 Hydroxyon 01-07 Vitamin D 25-OH 33.9 ng/mL Normal [facility] Comment on above: Result Comment: Geena min D 25(OH) Status Range Deficiency <20 ng/mL (50nmol/L) Insufficiency 20 - 30 ng/mL (50 - 75 nmol/L) Sufficiency 30 - 100 ng/mL (75 - 250 nmol/L) Toxicity >100 ng/mL (>250 nmol/L) Performed By: #### L 506.1000, L500.4050, L501.9520, L506.0400 ####[facility] [address] [place], [place], [address] Re-Evaluation - PT (1)on Re-Evaluation - PT (1) [facility] [place] [facility] [place] [address] [place] [address] / REEVALUATION / MEDICARE RECERTIFICATION PHYSICAL THERAPY MR#: [id number] Acct: [id number] Name: JOSE MABRY Rep #: [id number] : 1945 78 From: Joey Guzman PT, Cert. T, OCS Referring Dr.: Dr. Laek Campos MD Status:REG RCR Insurance: MEDICARE PART A B ANTHEM Re-Evaluation Intro: Dr. Lake Campos MD, It has been my pleasure to treat JOSE MABRY over the last 17 visits for [...] do not hesitate to contact me at [phone] by phone or if you have questions or concerns regarding this new plan of care! Sincerely, Joye Guzman PT, Cert T, OCS 12/25/23 1138 CC: Dr. Martina Doll MD; Dr. Lake Campos MD STIVEN Signed For Medicare only, by signing this I certify the plan of care. __ Physicians Signature Date Normal [facility] Re-Evaluation - PT (1)on Re-Evaluation - PT (1) [facility] Physical Therapy [facility] [address] [place] [address] [address] [place] [address] / REEVALUATION / MEDICARE RECERTIFICATION PHYSICAL THERAPY MR#: [id number] Acct: [id number] Name: JOSE MABRY Rep #: [id number] : 1945 78 From: Joey Guzman PT, Cert. T, OCS Referring Dr.: Dr. Lake Campos MD Status:REG RCR Insurance: MEDICARE PART A B ANTHEM Re-Evaluation Intro: Dr. Lake Campos MD, It has been my pleasure to treat JOSE MABRY over the last 9 visits for [...] do not hesitate to contact me at [phone] by phone or if you have questions or concerns regarding this new plan of care! Sincerely, Joey Guzman, PT, Cert MDT, OCS 11/27/23 1317 CC: Dr. Martina Doll MD; Dr. Lake Campos MD STIVEN Signed For Medicare only, by signing this I certify the plan of care. __ Physicians Signature Date Normal [facility] Absolute lymphocyte countOrd ered By: Martina Doll on 05-02-2023 Lymphocytes Auto (Unsp spec) [#/Vol] 2.59 10*3/uL 0.83-4.51 [facility] Automated lymphocyte count a s percentage of total leukocytesOrdered By: Martina Doll on 05-02-2023 Lymphocytes/100 WBC Auto (Unsp spec) 32.0 % 19-41 [facility] Basophil percentageOrdered B y: Martina Doll on 05-02-2023 Basophils/100 WBC (Bld) 0.5 % 0-1 [facility] Eosinophils/100 WBC (Bld) 2.2 % 0-5 [facility] Hemoglobin (Bld) [Mass/Vol] 13.8 g/dL 12.0-15.0 [facility] Monocytes/100 WBC (Bld) 10.5 % 0-10 [facility] Neutrophils (Bld) [#/Vol] 4.4 10*3/uL 2.0-7.7 [facility] Neutrophils/100 WBC (Bld) 54.4 % 47-70 [facility] WBC (Bld) [#/Vol] 8.1 10*3/uL 4.4-11.0 [facility] Determination of erythrocyte mean corpuscular volume (MCV)Ordered By: Martina Doll on 05-02-2023 MCV (RBC) [Entitic vol] 89.2 fL 81-99 [facility] Erythrocyte distribution wid th ratioOrdered By: Martina Doll on 05-02-2023 Erythrocyte distribution width (RBC) [Ratio] 14.0 % 11.6-14.6 [facility] Erythrocyte distribution wid th standard deviationOrdered By: Martina Doll on 05-02-2023 Erythrocyte distribution width (RBC) [Entitic vol] 45.4 fL 35.1-43.9 [facility] Erythrocyte sedimentation ra teOrdered By: Martina Doll on 05-02-2023 ESR (Bld) [Velocity] 3 mm/h 0-30 [facility] Hematocrit Auto (Bld) [Volum e fraction]Ordered By: Martina Doll on 05-02-2023 Hematocrit (Bld) [Volume fraction] 43.6 % 37-47 [facility] Immature granulocytes/100 WB C Auto (Bld)Ordered By: Martina Doll on 05-02-2023 Immature granulocytes/100 WBC (Bld) 0.400 % 0.0-0.9 [facility] Comment on above: IG% - Immature Granu locytes (promyelocytes, myelocytes and metamyelocytes) > 1% indicates that a LEFT SHIFT is Present. Laboratory - Hematology and Cell countsOrdered By: Martina Doll on 05-02-2023 MCH (RBC) [Entitic mass] 28.2 pg 27.0-32.0 [facility] MCHC (RBC) [Mass/Vol] 31.7 g/dL 32-36 [facility] Nucleated RBC/100 WBC (Bld) [Ratio] 0 % 0-5 [facility] Platelet mean volume (Bld) [Entitic vol] 9.9 fL 6.2-12.0 [facility] Platelets (Bld) [#/Vol] 312 10*3/uL 150-450 [facility] RBC Auto (Bld) [#/Vol]Ordere d By: Martina Doll on 05-02-2023 RBC (Bld) [#/Vol] 4.89 10*6/uL 4.2-5.4 [facility] Basophil percentageOrdered B y: Lake Campos on 12-26-2022 Bilirubin [Mass/Vol] 0.50 mg/dL 0.20-1.00 [facility] Comment on above: For patients on eltr ombopag therapy, use of Dimension [place] TBIL is not recommended. Chloride [Moles/Vol] 106 mmol/L 98-107 [facility] Glucose [Mass/Vol] 95 mg/dL 74-106 [facility] Potassium [Moles/Vol] 4.0 mmol/L 3.5-5.1 [facility] Protein [Mass/Vol] 7.1 g/dL 6.4-8.2 [facility] Sodium [Moles/Vol] 141 mmol/L 136-145 [facility] Laboratory - Chemistry and C hemistry - challengeOrdered By: Lake Campos on 12-26-2022 ALP [Catalytic activity/Vol] 60 U/L 45-117 [facility] ALT [Catalytic activity/Vol] 26 U/L 13-56 [facility] CO2 [Moles/Vol] 27.0 mmol/L 21.0-32.0 [facility] Free T4 [Mass/Vol] 1.39 ng/dL 0.76-1.46 [facility] Globulin (S) [Mass/Vol] 3.6 g/dL 2.2-4.2 [facility] Urea nitrogen/Creatinine [Mass ratio] 27.5 mg/mg 10-20 [facility] No Panel InformationOrdered By: Lake Campos on 12-26-2022 Estimated GFR (MDRD) Amer 81 mL/min >60 [facility] Comment on above: GFR Calc Estimated GFR (MDRD) Non-Af Amer 67 mL/min >60 [facility] Comment on above: Non- GFR Calc Thyroid Stimulating Hormone (TSH) 1.46 uIU/mL 0.358-3.74 [facility] Vitamin D 25-Hydroxy 65.3 ng/mL [facility] Comment on above: Vitamin D 25(OH) Sta tus Range Deficiency <20 ng/mL (50nmol/L) Insufficiency 20 - 30 ng/mL (50 - 75 nmol/L) Sufficiency 30 - 100 ng/mL (75 - 250 nmol/L) Toxicity >100 ng/mL (>250 nmol/L) Serum or plasma albumin jer urement (mass/volume)Ordered By: Lake Campos on 12-26-2022 Albumin [Mass/Vol] 3.5 g/dL 3.2-5.0 [facility] Serum or plasma albumin/glob ulin mass ratioOrdered By: Lake Campos on 12-26-2022 Albumin/Globulin [Mass ratio] 1.0 {ratio} 0.9-2.4 [facility] Serum or plasma calcium jer urement (mass/volume)Ordered By: Lake Campos on 12-26-2022 Calcium [Mass/Vol] 9.5 mg/dL 8.5-10.1 [facility] Serum or plasma creatinine m easurement (mass/volume)Ordered By: Lake Campos on 12-26-2022 Creatinine [Mass/Vol] 0.87 mg/dL 0.55-1.02 [facility] Comment on above: The validity of the calculated GFR & GFRAA in patients over 70 years has not been determined. Clinical correlation is essential. Serum or plasma urea nitroge n measurement (mass/volume)Ordered By: Lake Campos on 12-26-2022 Urea nitrogen [Mass/Vol] 24 mg/dL 7-18 [facility] Thin prep Papanicolaou smear with manual screeningOrdered By: Lake Campos on 12-26-2022 Thin prep Papanicolaou smear with manual screening 19 U/L 15-37 [facility] Thin prep Papanicolaou smear with manual screening 8 5-15 [facility] Basophil percentageOrdered B y: Dr. Campos on 05-13-2022 Cholesterol [Mass/Vol] 283 mg/dL <200 [facility] Comment on above: <200 mg/dL Desirable 200-240 mg/dL Borderline >240 mg/dL High Risk Triglyceride [Mass/Vol] 173 mg/dL <199 [facility] Comment on above: The drugs N-Acetylcy steine and Metamizole may falsely depress this assay.Serum Triglycerides Reference Interval Normal <150 mg/dL Borderline high 150 - 199 mg/dL High 200 - 499 mg/dL Very High > or = 500 mg/dL Laboratory - Chemistry and C hemistry - challengeOrdered By: Dr. Campos on 05-13-2022 Free T4 [Mass/Vol] 1.35 ng/dL 0.76-1.46 [facility] No Panel InformationOrdered By: Dr. Campos on 05-13-2022 Thyroid Stimulating Hormone (TSH) 1.16 uIU/mL 0.358-3.74 [facility] Vitamin D 25-Hydroxy 34.0 ng/mL [facility] Comment on above: Vitamin D 25(OH) Sta tus Range Deficiency <20 ng/mL (50nmol/L) Insufficiency 20 - 30 ng/mL (50 - 75 nmol/L) Sufficiency 30 - 100 ng/mL (75 - 250 nmol/L) Toxicity >100 ng/mL (>250 nmol/L) Serum or plasma cholesterol in HDL measurement (mass/volume)Ordered By: Dr. Campos on 05-13-2022 Cholesterol in HDL [Mass/Vol] 50 mg/dL >40 [facility] Comment on above: The drugs N-Acetylcy steine and Metamizole may falsely depress this assay. Reference Range HDL <40 mg/dL Low HDL Cholesterol HDL >or= 60 mg/dL High HDL Cholesterol Serum or plasma cholesterol in VLDL measurement (mass/volume)Ordered By: Dr. Campos on 05-13-2022 Cholesterol in VLDL [Mass/Vol] 35 mg/dL 5-40 [facility] Serum or plasma low density lipoprotein (LDL) cholesterol measurement (mass/volume)Ordered By: Dr. Campos on 05-13-2022 Cholesterol in LDL [Mass/Vol] 198 mg/dL 0-130 [facility] Absolute lymphocyte countOrd ered By: Dr. Campos on 02-08-2022 Lymphocytes Auto (Unsp spec) [#/Vol] 2.04 10*3/uL 0.83-4.51 [facility] Basophil percentageOrdered B y: Dr. Campos on 02-08-2022 Basophils/100 WBC (Bld) 0.3 % 0-1 [facility] Bilirubin [Mass/Vol] 0.50 mg/dL 0.20-1.00 [facility] Comment on above: For patients on eltr ombopag therapy, use of Dimension [place] TBIL is not recommended. Chloride [Moles/Vol] 105 mmol/L 98-107 [facility] Eosinophils/100 WBC (Bld) 1.1 % 0-5 [facility] Glucose [Mass/Vol] 99 mg/dL 74-106 [facility] Neutrophils (Bld) [#/Vol] 3.8 10*3/uL 2.0-7.7 [facility] Neutrophils/100 WBC (Bld) 57.0 % 47-70 [facility] Potassium [Moles/Vol] 3.9 mmol/L 3.5-5.1 [facility] Protein [Mass/Vol] 7.0 g/dL 6.4-8.2 [facility] Sodium [Moles/Vol] 140 mmol/L 136-145 [facility] WBC (Bld) [#/Vol] 6.6 10*3/uL 4.4-11.0 [facility] Blood erythrocytes count (nu mber/volume)Ordered By: Dr. Campos on 02-08-2022 RBC (Bld) [#/Vol] 4.85 10*6/uL 4.2-5.4 [facility] Blood hemoglobin measurement (mass/volume)Ordered By: Dr. Campos on 02-08-2022 Hemoglobin (Bld) [Mass/Vol] 14.0 g/dL 12.0-15.0 [facility] Blood lymphocytes/100 leukoc ytesOrdered By: Dr. Campos on 02-08-2022 Lymphocytes/100 WBC (Bld) 31.0 % 19-41 [facility] Blood monocytes/100 leukocyt esOrdered By: Dr. Campos on 02-08-2022 Monocytes/100 WBC (Bld) 10.3 % 0-10 [facility] Blood platelet mean volumeOr dered By: Dr. Campos on 02-08-2022 Platelet mean volume (Bld) [Entitic vol] 9.9 fL 6.2-12.0 [facility] Determination of erythrocyte mean corpuscular volume (MCV)Ordered By: Dr. Campos on 02-08-2022 MCV (RBC) [Entitic vol] 90.9 fL 81-99 [facility] Hematocrit Auto (Bld) [Volum e fraction]Ordered By: Dr. Campos on 02-08-2022 Hematocrit (Bld) [Volume fraction] 44.1 % 37-47 [facility] Laboratory - Chemistry and C hemistry - challengeOrdered By: Dr. Campos on 02-08-2022 ALP [Catalytic activity/Vol] 70 U/L 45-117 [facility] ALT [Catalytic activity/Vol] 42 U/L 13-56 [facility] CO2 [Moles/Vol] 28.0 mmol/L 21.0-32.0 [facility] Cobalamin (Vitamin B12) [Mass/Vol] 432 pg/mL 211-911 [facility] Free T4 [Mass/Vol] 1.44 ng/dL 0.76-1.46 [facility] Globulin (S) [Mass/Vol] 3.3 g/dL 2.2-4.2 [facility] Urea nitrogen/Creatinine [Mass ratio] 35.2 mg/mg 10-20 [facility] Laboratory - Hematology and Cell countsOrdered By: Dr. Campos on 02-08-2022 Erythrocyte distribution width (RBC) [Entitic vol] 43.9 fL 35.1-43.9 [facility] Erythrocyte distribution width (RBC) [Ratio] 13.2 % 11.6-14.6 [facility] Immature granulocytes/100 WBC (Bld) 0.300 % 0.0-0.9 [facility] Comment on above: IG% - Immature Granu locytes (promyelocytes, myelocytes and metamyelocytes) > 1% indicates that a LEFT SHIFT is Present. MCH (RBC) [Entitic mass] 28.9 pg 27.0-32.0 [facility] Nucleated RBC/100 WBC (Bld) [Ratio] 0.5 % 0-5 [facility] MCHC Auto (RBC) [Mass/Vol]Or dered By: Dr. Campos on 02-08-2022 MCHC (RBC) [Mass/Vol] 31.7 g/dL 32-36 [facility] No Panel InformationOrdered By: Dr. Campos on 02-08-2022 Estimated GFR (MDRD) Amer 99 mL/min >60 [facility] Comment on above: GFR Calc Estimated GFR (MDRD) Non-Af Amer 82 mL/min >60 [facility] Comment on above: Non- GFR Calc Thyroid Stimulating Hormone (TSH) 0.24 uIU/mL 0.358-3.74 [facility] Vitamin D 25-Hydroxy 26.9 ng/mL [facility] Comment on above: Vitamin D 25(OH) Sta tus Range Deficiency <20 ng/mL (50nmol/L) Insufficiency 20 - 30 ng/mL (50 - 75 nmol/L) Sufficiency 30 - 100 ng/mL (75 - 250 nmol/L) Toxicity >100 ng/mL (>250 nmol/L) Platelets bldOrdered By: Dr. Campos on 02-08-2022 Platelets (Bld) [#/Vol] 301 10*3/uL 150-450 [facility] Serum or plasma albumin jer urement (mass/volume)Ordered By: Dr. Campos on 02-08-2022 Albumin [Mass/Vol] 3.7 g/dL 3.2-5.0 [facility] Serum or plasma albumin/glob ulin mass ratioOrdered By: Dr. Campos on 02-08-2022 Albumin/Globulin [Mass ratio] 1.1 {ratio} 0.9-2.4 [facility] Serum or plasma calcium jer urement (mass/volume)Ordered By: Dr. Campos on 02-08-2022 Calcium [Mass/Vol] 9.5 mg/dL 8.5-10.1 [facility] Serum or plasma creatinine m easurement (mass/volume)Ordered By: Dr. Campos on 02-08-2022 Creatinine [Mass/Vol] 0.74 mg/dL 0.55-1.02 [facility] Comment on above: The validity of the calculated GFR & GFRAA in patients over 70 years has not been determined. Clinical correlation is essential. Serum or plasma ferritin sandy surement (mass/volume)Ordered By: Dr. Campos on 02-08-2022 Ferritin [Mass/Vol] 90 ng/mL 8-252 [facility] Serum or plasma urea nitroge n measurement (mass/volume)Ordered By: Dr. Campos on 02-08-2022 Urea nitrogen [Mass/Vol] 26 mg/dL 7-18 [facility] Thin prep Papanicolaou smear with manual screeningOrdered By: Dr. Campos on 02-08-2022 Thin prep Papanicolaou smear with manual screening 24 U/L 15-37 [facility] Thin prep Papanicolaou smear with manual screening 7 5-15 [facility] Basophil percentageon 2021 Chloride [Moles/Vol] 106 mmol/L 98-[address] [facility] [address] [facility] Work Phone: Cholesterol [Mass/Vol] 287 mg/dL <200 [facility] Work Phone: Comment on above: <200 mg/dL Desirable 200-240 mg/dL Borderline >240 mg/dL High Risk Glucose [Mass/Vol] 83 mg/dL 74-106 [facility] Work Phone: Potassium [Moles/Vol] 3.7 mmol/L 3.5-5.1 [facility] Work Phone: Sodium [Moles/Vol] 141 mmol/L 136-145 [facility] Work Phone: Triglyceride [Mass/Vol] 360 mg/dL <199 [facility] Work Phone: Comment on above: The drugs N-Acetylcy steine and Metamizole may falsely depress this assay.Serum Triglycerides Reference Interval Normal <150 mg/dL Borderline high 150 - 199 mg/dL High 200 - 499 mg/dL Very High > or = 500 mg/dL Laboratory - Chemistry and C hemistry - challengeon 10-30-2021 CO2 [Moles/Vol] 27.0 mmol/L 21.0-32.0 [facility] Work Phone: Urea nitrogen/Creatinine [Mass ratio] 28.3 mg/mg 10-20 [facility] Work Phone: No Panel Informationon 10-30 Estimated GFR (MDRD) Amer 98 mL/min >60 [facility] Work Phone: Comment on above: GFR Calc Estimated GFR (MDRD) Non-Af Amer 81 mL/min >60 [facility] Work Phone: Comment on above: Non- GFR Calc Urine Microalbumin/Creatinine Ratio 31.4 mg/g CRE <30 [facility] Work Phone: Serum or plasma calcium jer urement (mass/volume)on 10-30-2021 Calcium [Mass/Vol] 9.3 mg/dL 8.5-10.1 [facility] Work Phone: Serum or plasma cholesterol in HDL measurement (mass/volume)on 10-30-2021 Cholesterol in HDL [Mass/Vol] 45 mg/dL >40 [facility] Work Phone: Comment on above: The drugs N-Acetylcy steine and Metamizole may falsely depress this assay. Reference Range HDL <40 mg/dL Low HDL Cholesterol HDL >or= 60 mg/dL High HDL Cholesterol Serum or plasma cholesterol in VLDL measurement (mass/volume)on 10-30-2021 Cholesterol in VLDL [Mass/Vol] 72 mg/dL 5-40 [facility] Work Phone: Serum or plasma creatinine m easurement (mass/volume)on 10-30-2021 Creatinine [Mass/Vol] 0.74 mg/dL 0.55-1.02 [facility] Work Phone: Comment on above: The validity of the calculated GFR & GFRAA in patients over 70 years has not been determined. Clinical correlation is essential. Serum or plasma low density lipoprotein (LDL) cholesterol measurement (mass/volume)on 10-30-2021 Cholesterol in LDL [Mass/Vol] 170 mg/dL 0-130 [facility] Work Phone: Serum or plasma urea nitroge n measurement (mass/volume)on 10-30-2021 Urea nitrogen [Mass/Vol] 21 mg/dL 7-18 [facility] Work Phone: Thin prep Papanicolaou smear with manual screeningon 10-30-2021 Thin prep Papanicolaou smear with manual screening 8 5-15 [facility] Work Phone: Thin prep Papanicolaou smear with manual screening 43.3 mg/L NO RANGE EST. [facility] Work Phone: Urine creatinine measurement (mass/volume)on 10-30-2021 Creatinine (U) [Mass/Vol] 138.00 mg/dL NO RANGE EST. [facility] Work Phone: Laboratory - Chemistry and C hemistry - challengeon 04-17-2021 Free T4 [Mass/Vol] 1.49 ng/dL 0.76-1.46 [facility] Work Phone: No Panel Informationon 04-17 Thyroid Stimulating Hormone (TSH) 0.30 uIU/mL 0.358-3.74 [facility] Work Phone: Lab Report: T4 Free Directon 11-08-2016 Thyroxine (T4) free 1.54 ng/dL High 0.76-1.46 [facility] Work Phone: Lab Report: Thyroid Stim Hor coral (TSH)on 11-08-2016 Thyroid stimulating hormone (TSH) 1.28 u[iU]/mL Invalid Interpretation Code 0.358-3.74 [facility] Work Phone: Replaced Document: (P) Thyro globulin w/Anti-TG ABon 03-31-2016 Globulin 0.1 ng/mL Low 1.5-38.5 [facility] Work Phone: Globulin g/dL Invalid Interpretation Code 0.0-0.9 [facility] Work Phone: Office Visit: Transition of [facility] 03-27-2016 Adult depression screening assessment Adult depression screening assessment Invalid Interpretation Code [facility] Work Phone: Documentation of current medications (procedure) Done Invalid Interpretation Code [facility] Work Phone: Tobacco smoking status NHIS Never Invalid Interpretation Code [facility] Work Phone: Tobacco use [facility] Never smoker Invalid Interpretation Code [facility] Work Phone: Office Visit: Transition of [facility] 02-24-2014 Breast Mammogram screening Normal Bilateral Invalid Interpretation Code [facility] Work Phone: Office Visit: Transition of [facility] 02-24-2013 General categories [Interpretation] of Cervical or vaginal smear or scraping by Cyto stain Normal Invalid Interpretation Code [facility] Work Phone: Vital Signs Date Time Vital Sign Value Performing Clinician Facility 10-19-2024 13:01-0400 Body height 162.[address] Nithin Brandon MD Work Phone: [facility] 10-19-2024 13:01-0400 Body mass index (BMI) [Ratio] 28.6 kg/m2 Dr. Nithin Brandon MD Work Phone: [facility] 10-19-2024 13:01-0400 Body weight 75.[address] Nithin Brandon MD Work Phone: [facility] 10-19-2024 13:01-0400 Diastolic blood pressure 82 mm[Hg] Dr. Nithin Brandon MD Work Phone: [facility] 10-19-2024 13:01-0400 Heart rate 78 /min Dr. Nithin Brandon MD Work Phone: [facility] 10-19-2024 13:01-0400 SaO2% (BldA) [Mass fraction] 96 % Dr. Nithin Brandon MD Work Phone: [facility] 10-19-2024 13:01-0400 Systolic blood pressure 146 mm[Hg] Dr. Nithin Brandon MD Work Phone: [facility] 07-21-2024 10:49-0400 Body height 160 cm Dina Maya MD Work Phone: [facility] 07-21-2024 10:49-0400 Body mass index (BMI) [Ratio] 28.87 kg/m2 Dina Maya MD Work Phone: [facility] 07-21-2024 10:49-0400 Body weight 73.94 kg Dina Maya MD Work Phone: [facility] 07-21-2024 10:49-0400 Diastolic blood pressure 84 mm[Hg] Dina Maya MD Work Phone: [facility] 07-21-2024 10:49-0400 Systolic blood pressure 132 mm[Hg] Dina Maya MD Work Phone: [facility] 01-10-2023 14:04-0500 Body temperature 96.4 [degF] Dr. Martina Doll Work Phone: [facility] 01-10-2023 14:04-0500 Diastolic blood pressure 53 mm[Hg] Dr. Martina Doll Work Phone: [facility] 01-10-2023 14:04-0500 Heart rate 73 /min Dr. Martina Doll Work Phone: [facility] 01-10-2023 14:04-0500 Respiratory rate 16 /min Dr. Martina Doll Work Phone: [facility] 01-10-2023 14:04-0500 SaO2% (BldA) [Mass fraction] 96 % Dr. Martina Doll Work Phone: [facility] 01-10-2023 14:04-0500 Systolic blood pressure 127 mm[Hg] Dr. Martina Doll Work Phone: [phone] [place] [address] 01-10-2023 13:29-0500 Body height 162.[address] Martina Doll Work Phone: [facility] 01-10-2023 13:29-0500 Body mass index (BMI) [Ratio] 26.6 kg/m2 Dr. Martina Doll Work Phone: [phone] [place] [address] 01-10-2023 13:29-0500 Body weight 70.[address] Martina Doll Work Phone: [phone] [place] [address] 11-19-2022 10:21-0400 Body height 162.[address] Martina Doll Work Phone: [facility] 11-19-2022 10:21-0400 Body mass index (BMI) [Ratio] 26.9 kg/m2 Dr. Martina Doll Work Phone: [facility] 11-19-2022 10:21-0400 Body temperature 98 [degF] Dr. Martina Doll Work Phone: [facility] 11-19-2022 10:21-0400 Body weight 70.[address] Martina Doll Work Phone: [facility] 11-19-2022 10:21-0400 Diastolic blood pressure 80 mm[Hg] Dr. Martina Doll Work Phone: [facility] 11-19-2022 10:21-0400 Heart rate 76 /min Dr. Martina Doll Work Phone: [facility] 11-19-2022 10:21-0400 Respiratory rate 16 /min Dr. Martina Doll Work Phone: [facility] 11-19-2022 10:21-0400 SaO2% (BldA) [Mass fraction] 99 % Dr. Martina Doll Work Phone: [facility] 11-19-2022 10:21-0400 Systolic blood pressure 135 mm[Hg] Dr. Martina Doll Work Phone: [facility] 03-11-2022 14:46-0500 Body height 162.[address] Martina Doll Work Phone: [facility] 03-11-2022 14:46-0500 Body mass index (BMI) [Ratio] 28.6 kg/m2 Dr. Martina Doll Work Phone: [facility] 03-11-2022 14:46-0500 Body temperature 95.8 [degF] Dr. Martina Doll Work Phone: [facility] 03-11-2022 14:46-0500 Body weight 75.[address] Martina Doll Work Phone: [facility] 03-11-2022 14:46-0500 Diastolic blood pressure 82 mm[Hg] Dr. Martina Doll Work Phone: [facility] 03-11-2022 14:46-0500 Heart rate 85 /min Dr. Martina Doll Work Phone: [facility] 03-11-2022 14:46-0500 Respiratory rate 18 /min Dr. Martina Doll Work Phone: [facility] 03-11-2022 14:46-0500 SaO2% (BldA) [Mass fraction] 97 % Dr. Martina Doll Work Phone: [facility] 03-11-2022 14:46-0500 Systolic blood pressure 146 mm[Hg] Dr. Martina Doll Work Phone: [facility] 02-07-2022 09:16-0500 Body height 162.[address] Martina Doll Work Phone: [facility] Work Phone: 02-07-2022 09:16-0500 Body mass index (BMI) [Ratio] 29 kg/m2 Dr. Martina Doll Work Phone: [facility] 02-07-2022 09:16-0500 Body temperature 96.6 [degF] Dr. Martina Doll Work Phone: [facility] 02-07-2022 09:16-0500 Body weight 76.[address] Martina Doll Work Phone: [facility] 02-07-2022 09:16-0500 Diastolic blood pressure 91 mm[Hg] Dr. Martina Doll Work Phone: [facility] 02-07-2022 09:16-0500 Heart rate 79 /min Dr. Martina Doll Work Phone: [facility] 02-07-2022 09:16-0500 Respiratory rate 18 /min Dr. Martina Doll Work Phone: [facility] 02-07-2022 09:16-0500 SaO2% (BldA) [Mass fraction] 94 % Dr. Martina Doll Work Phone: [facility] 02-07-2022 09:16-0500 Systolic blood pressure 139 mm[Hg] Dr. Martina Doll Work Phone: [facility] 03-27-2016 08:31-0500 BMI (Body Mass Index) 31.44 kg/m2 Ashley Kang NP [facility] Work Phone: 03-27-2016 08:31-0500 Body Temperature 97.9 [degF] Ashley Kang OIL WE[employer]ING TOOL OPERATOR [facility] Work Phone: 03-27-2016 08:31-0500 BP Diastolic 77 mm[Hg] Ashley Kang OIL WE[employer]ING TOOL OPERATOR [facility] Work Phone: 03-27-2016 08:31-0500 BP Systolic 121 mm[Hg] Ashley Kang OIL WE[employer]ING TOOL OPERATOR [facility] Work Phone: 03-27-2016 08:31-0500 Height 163.19 cm Ashley Kang O[employer] WE[employer]ING TOOL OPERATOR [facility] Work Phone: 03-27-2016 08:31-0500 Pulse (Heart Rate) 76 /min Ashley Kang NP [facility] Work Phone: 03-27-2016 08:31-0500 Respiratory Rate 18 /min Ashley Kang NP [facility] Work Phone: 03-27-2016 08:31-0500 Weight 83.73 kg Ashley Kang OIL WE[employer]ING TOOL OPERATOR [facility] Work Phone: 03-27-2016 08:31-0500 Weight 83.91 kg Ashley Kang O[employer] WE[employer]ING TOOL OPERATOR [facility] Work Phone: Encounters Encounter Date Encounter Type Care Provider Facility Start: 11-03-2024 End: 11-03-[address] Nithin Brandon MD Work Phone: -Ultrasound [facility] Start: 11-03-2024 End: 11-03-[address] Lake Campos MD -Ultrasound [facility] Work Phone: Start: 11-03-2024 End: 11-03-2024 ambulatory [place] Campos Facility:[facility] Start: 10-19-2024 End: 10-19-[address] Lkae Campos MD -[facility] Work Phone: Start: 10-19-2024 End: 10-19-[address] Nithin Brandon MD Work Phone: -[facility] Start: 09-22-2024 ambulatory Nithin Brandon Faci lity:[facility] Start: 09-22-2024 Non-patient / Non-visit Dr. Pete Benton MD -[facility] Start: 09-22-2024 End: 09-22-[address] Nithin Brandon MD Work Phone: -[facility] Services Start: 09-22-2024 End: 09-22-[address] Nithin Brandon MD -Cardiovascular Services Work Phone: Start: 09-22-2024 End: 09-22-2024 ambulatory Nithin Brandno Facility:[facility] Start: 08-19-2024 End: 08-19-[address] Nithin Brandon MD Work Phone: -[facility] Start: 08-19-2024 End: 08-19-[address] Nithin Brandon MD -[facility] Work Phone: Start: 08-19-2024 End: 08-19-2024 ambulatory Nithin Brandon Facility:[facility] Start: 08-09-2024 End: 08-09-[address] 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 Martina Doll MD Work Phone: [facility] Work Phone: Start: 06-16-2024 End: 06-16-[address] Nithin Brandon MD -Outpatient Breast Imaging Work Phone: Start: 06-16-2024 End: 06-16-2024 ambulatory Nithin Brandon Facility:[facility] Start: 03-22-2024 End: 03-22-[address] [facility] Start: 03-22-2024 End: 03-22-2024 ambulatory Martina Doll Facility:[facility] Start: 01-29-2024 End: 01-29-2024 ambulatory Martina Doll Facility:[facility] Start: 01-15-2024 End: 01-15-2024 ambulatory [place] Campos Facility:[facility] Start: 01-08-2024 End: 01-08-2024 ambulatory Martina Doll Facility:[facility] Start: 06-16-2023 End: 06-16-2023 ambulatory [facility] Work Phone: Start: 06-16-2023 End: 06-16-2023 Patient encounter procedure [facility]-Outpatient Breast Imaging Work Phone: Start: 05-02-2023 End: 05-02-2023 ambulatory [facility] Work Phone: Start: 05-02-2023 End: 05-02-2023 [facility] Start: 01-10-2023 End: 01-10-[address] Martina Doll Work Phone: [facility] Work Phone: Start: 01-10-2023 End: 01-10-[address] Martina Doll Work Phone: [facility]-Medical Out Work Phone: Start: 12-26-2022 End: 12-26-[address] Martina Doll Work Phone: [facility] Work Phone: Start: 12-26-2022 End: 12-26-[address] Martina Doll Work Phone: [facility] Work Phone: Start: 11-19-2022 End: 11-19-[address] Martina Doll Work Phone: [facility] Work Phone: Start: 06-14-2022 End: 06-14-[address] Martina Doll Work Phone: [facility] Work Phone: Start: 06-14-2022 End: 06-14-[address] Martina Doll Work Phone: [facility]-Outpatient Breast Imaging Start: 05-13-2022 End: 05-13-[address] Martina Doll Work Phone: [facility] Work Phone: Start: 05-13-2022 End: 05-13-[address] Martina Doll Work Phone: [facility] Start: 03-11-2022 End: 03-11-[address] Martina Doll Work Phone: [facility] Start: 03-07-2022 End: 03-07-[address] Martina Doll Work Phone: [facility] Work Phone: Start: 03-07-2022 End: 03-07-[address] Martina Doll Work Phone: [facility]-Outpatient Bone Densitometry Start: 02-08-2022 End: 02-08-[address] Martina Doll Work Phone: [facility] Work Phone: Start: 02-08-2022 End: 02-08-[address] Martina Doll Work Phone: [facility] Start: 02-07-2022 End: 02-07-[address] Martina Doll Work Phone: [facility] Start: 10-30-2021 End: 10-30-2021 ambulatory [facility] Work Phone: Start: 10-30-2021 End: 10-30-2021 Patient encounter procedure [facility] Start: 06-13-2021 End: 06-13-2021 Patient encounter procedure [facility]-Outpatient Breast Imaging Start: 04-17-2021 End: 04-17-2021 Patient encounter procedure [facility] Procedures Date Procedure Procedure Detail Performing Clinician Start: 11-03-2024 Ultrasound elastogra phy of liver Dr. Nithin Brandon MD Work Phone: Start: 09-22-2024 Cardiovascular stres s test using pharmacologic stress agent Dr. Nithin Brandon MD Work Phone: Start: 08-19-2024 X-ray of chest, PA a nd lateral views Dr. Nithin Brandon MD Work Phone: Start: 06-16-2024 Screening mammography Georgette Doll MD Work Phone: Start: 06-16-2023 Screening mammography Start: 06-14-2022 Screening mammography Georgette Doll Work Phone: Start: 03-07-2022 Dual energy X-ray absorptiometry Dr. Martina Doll Work Phone: Start: 06-13-2021 Screening mammography Start: 03-27-2016 End: 03-31-2016 Solange Kang NP Work Phone: Start: 03-27-2016 End: 11-12-2016 Thyroid stimulating hormone (TSH) Ashley Kang NP Work Phone: Start: 03-27-2016 End: 11-12-2016 Thyroxine (T4) free Ashley Kang OIL WELL FISHING TOOL OPERATOR Work Phone: Plan of Treatment Date Care Activity Detail Author Start: 07-21-2025 End: 07-21-2025 Patient encounter procedure 07/21/2025 9:00 AM EDT Office Visit OB/Gynecology [address] [place] [address] Dina Maya MD [address] [place], [place] [id number] Annual OB/Gynecology Comment on above: Annual Start: 10-19-2024 Thyroid stimulating hormone measurement [facility] Start: 10-19-2024 Vitamin D, 25-hydrox y measurement [facility] Start: 07-18-2024 Covid-19 Vaccine ( season) Covid-19 Vaccine ( season) [facility] Start: 02-25-2024 Advance Directive Discussion Advance Directive Discussion [facility] Start: 01-10-2023 Iv infusion therapy/prophylaxis /dx 1st to 1 hr THER/PROPH/DIAG IV INF INIT [facility] Start: 2021 RSV Vaccine (1 - 1-d ose 75+ series) RSV Vaccine (1 - 1-dose 75+ series) [facility] Start: 03-27-2016 End: 03-31-2016 Globulin *ATAB - Thyroglobulin Antibody [facility] Work Phone: Start: 03-27-2016 End: 11-12-2016 Thyroid stimulating hormone (TSH) *TSH [facility] Work Phone: Start: 03-27-2016 End: 11-12-2016 Thyroxine (T4) free *T4 free [facility] Work Phone: Start: 02-16-2016 Pneumococcal Vaccine : 50+ (2 of 2 - PCV) Pneumococcal Vaccine: 50+ (2 of 2 - PCV) [facility] Start: 10-27-2007 Diabetes Screening Diabetes Screenin g [facility] Start: 1996 Shingrix Vaccine (1 of 2) Shingrix Vaccine (1 of 2) [facility] Start: 1965 Urine microalbumin profile DTaP,Tdap,Td Vaccine (1 - Tdap) [facility] Start: 1964 Annual PCP Team Java Web Developer eze Disease Visit Annual PCP Team Chronic Disease Visit [facility] Start: 1964 Anxiety Screening Anxiety Screening [facility] Start: 1964 BP Controlled (<130/80) BP Controlle d (<130/80) [facility] Start: 1964 Depression Screening Depression Scre ening [facility] Start: 1964 Hepatitis C screening Hepatitis C Sc leesa [facility] Comprehensive metabo lic 1999 panel - Serum or Plasma [facility] CT Abdomen [facility] Lipid 1995 panel - Serum or Plasma [facility] T4 free measurement [facility] Thyroid stimulating hormone measurement [facility] Vitamin D, 25-hydrox y measurement [facility] Payers Date Payer Category Payer Self-pay [id number] 2016 [facility] SUPPLE[facility] Member Subscriber Plan / Payer (Effective 2016-Present) Name: Jose Mabry Relation to Subscriber: Self Name: Jose Mabry Payer ID: [id number] (NAIC) Group ID: [id number] Type: Indemnity Address: [place] [id number] 2016 Unknown [id number] 2011 Medicare MEDICARE [id number] 2011 Medicare [id number] Unknown [id number] Unknown [id number] Unknown [id number] Unknown [id number] Unknown [id number] Unknown [id number] Unknown [id number] Unknown [id number] Unknown [id number] Unknown [id number] Unknown [id number] Unknown [id number] Social History Date Type Detail Facility Start: 02-08-2021 End: 11-19-2022 Tobacco smoking status NCIS Unknown if ever smoked [facility] Start: 1945 Sex Assigned At Female [facility] Start: 04-01-2011 End: 11-19-2022 Tobacco smoking status NHIS Never smoked tobacco (finding) [facility] Start: 06-21-2024 Sex Female (finding) [facility] Start: 04-01-2011 Tobacco use and exposure Smokeless tobacco non-user [facility] Start: 07-21-2024 Alcoholic beverage intake Current non-drinker of alcohol (finding) [facility] Start: 07-21-2024 History of Social function [facility] Start: 07-21-2024 Tobacco use panel [facility] National Score (1-10 0), lower number is lower risk 60 [facility] Start: 1945 Sex assigned at Not on file C [facility] Functional Status Date Assessment Result Facility 09-21-2013 Are you deaf, or do you have serious difficulty hearing No 09/21/2013 3:00 PM EDT Osiris Fisher LPN No [facility] 09-21-2013 Are you blind, or do you have serious difficulty seeing, even when wearing glasses No 09/21/2013 3:00 PM EDT Osiris Fisher LPN No [facility] 09-21-2013 Do you have serious difficulty walking or climbing stairs No 09/21/2013 3:00 PM EDT Osiris Fisher LPN No [facility] 09-21-2013 Do you have difficul ty dressing or bathing No 09/21/2013 3:00 PM MYT Osiris Fisher LPN No [facility] 09-21-2013 Because of a physica l, mental, or emotional condition, do you have difficulty doing errands alone such as visiting a physician's office or shopping No 09/21/2013 3:00 PM EDT Osiris Fisher LPN No [facility] Mental Status Date Assessment Result Facility 01-10-2023 Cognitive function Awake;Alert;A ppropriate; Follows Commands [facility] Work Phone: 09-21-2013 Because of a physica l, mental, or emotional condition, do you have serious difficulty concentrating, remembering, or making decisions No 09/21/2013 3:00 PM EDT Osiris Fisher LPN No [facility] Clinical Notes 07-21-2024 to 11-03-2024 Note Date & Type Note Facility 11-03-2024 Radiology Diagnostic study note [facility] Imaging Services [address] [place] [address] ABD Limited w/ Elastography MR#: [id number] Acct: [id number] Name: JOSE MABRY Rep #: [id number] : 1945 F 79 From: Jose Ramon Cain MD PCP: Dr. Nithin Brandon MD Status: REG CLI Study:ABD Limited w/ Elastography Date of Exa m: 11/03/24 Exam# [id number] Ordering Dr: Beto Campos i, MD PROCEDURE: ABD LIMITED W/ ELASTOGRAPHY REASON FOR EXAM: ELASTOGRAPHY PLEASE Fatty infiltration of the liver. COMPARISON: None. TECHNIQUE: Procedure Code: [id number] Modality: US Procedure: ABD LIMITED W/ ELASTOGRAPHY Right upper quadrant abdominal ultrasound. [facility] ElastQ Imaging shear wave elastography for non-invasive assessment of liver tissue stiffness. [facility] EPIQ Elite. FINDINGS: LIVER: Size: Unremarkable Length: 13.9 cm Echotexture: Diffusely echogenic suggesting fatty infiltration Contour: Normal Lesions: None identified Elastography: EQI Med: 5.3 kPa EQI Med Scooby: 1.32 m/s IQR/Med: 22 %* GALLBLADDER: Surgically absent. COMMON BILE DUCT: Dilated measuring up to 10 mm. This is within normal range for the post cholecystectomy state. . PANCREAS: Normal Visualized portions of the right kidney are unremarkable. No right upper quadrant ascites. US/ABD Limited w/ Elastography IMPRESSION: NO TO MILD HEPATIC FIBROSIS Diffuse fatty infiltration of the liver. Reference Values: SRU <1.37 m/s (5.7kPa): No to mild fibrosis 1.37 m/s - 2.2 m/s: Moderate to severe fibrosis >2.2 m/s (15kPa): Significant fibrosis / cirrhosis METAVIR Score F2 or higher: 1.34 m/s (5.7kPa) F3 or higher: 1.55 m/s (7.3kPa) F4: 1.80 m/s (10kPa) * If the IQR/Med is >30%, the variance in the measurements is a large and the accuracy of the measurement may be in question. Reading Location: [facility] CC: Dr. Nithin Brandon MD; Dr. Lake Campos MD ~ Brick Extruder Operator: Signed [facility] 10-19-2024 Evaluation note Diagnosis Onset Date Resolution Difficulty swallowing acute Aug ust 2024 12:59pm Fatty liver chronic October 19, 2024 12:59pm Osteoporosis chronic October 19, 2024 12:59pm Postoperative primary hypothyroidism chronic October 19 12:59pm [facility] Work Phone: 1(764) 142-207906-27-2025 Radiology Diagnostic study note [facility] Imaging Services [address] [place] [address] Chest PA and Lateral MR#: [id number] Acct: [id number] Name: JOSE MABRY Rep #: [id number] : 1945 F 79 From: Genny Roth MD PCP: Dr. Nithin Brandon MD Status: REG CLI Study:Chest PA and Lateral Date of Exam: 08/19/24 Exam# [id number] Ordering Dr: Prasanna Brandon MD EXAM: XR [...] IMPRESSION: No acute cardiopulmonary process. Reading Location: [id number] CC: Dr. Nithin Brandon MD ~ Brick Extruder Operator: Signed [facility]05-28-2025 NoteHNO ID: [id number] Author: DINA MAYA MD Service: ? Author [...] 13. AFB 26. 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 As applicable, any other physician, advance practice provider, medical student, or other health professional student that will be observing or involved in the sensitive examination for educational or training purposes was discussed with the Patient or Authorized Chief Technologist. The Patient or Authorized Chief Technologist has agreed to proceed with the sensitive [...] inspiratory effort PELVIC: normal Bartholin's glands, urethra, [place]'s glands, no vulvar lesions, no cervical lesions, [...] year or sooner as needed Dina Maya [facility]05-28-2025 History of Present illness Narrative* Dina Maya MD - 07/21/2024 10:43 AM EDT Felipa is a 78 year old who [...] 13. AFB 26. 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 As applicable, any other physician, advance practice provider, medical student, or other health professional student that will be observing or involved in the sensitive examination for educational or training purposes was discussed with the Patient or Authorized Chief Technologist. The Patient or Authorized Chief Technologist has agreed to proceed with the sensitive [...] inspiratory effort PELVIC: normal Bartholin's glands, urethra, [place]'s glands, no vulvar lesions, no cervical lesions,good vaginal support, physiologic discharge present, normal appearing [...] needed Dina Maya MD [facility] noteNo assessment information availableWHolzer Health System Work Phone: evaluation note* Diagnosis Onset Date Resolution Status Fatty liver acute Mixed hyperlipidemia acute Postoperative primary hypothyroidism acute [facility] Work Phone: evaluation note* Diagnosis Onset Date Resolution Status Fatty liver acute Mixed hyperlipidemia acute Postoperative primary hypothyroidism acute Osteoporosis acute Vitamin D deficiency acute [facility] Work Phone: Evaluation note* Diagnosis Onset Date Resolution Status Osteoporosis acute Vitamin D deficiency acute [facility] Work Phone: Evaluation note* Diagnosis Onset Date Resolution Status Osteoporosis chronic Postoperative primary hypothyroidism chronic Vitamin D deficiency chronic [facility] Work Phone: Evaluation note* Diagnosis SHELL MACHINE 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 note* Diagnosis Onset Date Resolution Status Admit Date Osteoporosis chronic October 19, 2024 12:59pm Postoperative primary hypothyroidism chronic October 19 12:59pm [facility] Work Phone: Reason for referral (narrative)No reason for referral [facility] Work Phone: Chief Complaint and Reason for [...] 8am E-ORDER August 19, 2024 3:02 pm Chief Complaint Admit Date SCREENING June 16, 2024 9:2 8am E-ORDER August 19, 2024 3:02 pm DYSPNEA, UNSPECIFIED AFLUTTER September 22, 2024 6:47am Chief Complaint Admit Date E-ORDER August 19, 2024 3:02 pm DYSPNEA, UNSPECIFIED AFLUTTER September 22, 2024 6:47am 1 Y FU October 19, 2024 12 :59pm Reason for Visit Admit Date Osteoporosis October 19, 2024 12 :59pm Postoperative primary hypothyroidism Aug ust 2024 12:59pm Chief Complaint Admit Date E-ORDER August 19, 2024 3:02 pm DYSPNEA, UNSPECIFIED AFLUTTER September 22, 2024 6:47am 1 Y FU October 19, 2024 12 :59pm FATTY LIVER November 03, 2024 9:48am Reason for Visit Admit Date Difficulty swallowing October 19, 2024 12:59pm Fatty liver October 19, 2024 12 :59pm Osteoporosis October 19, 2024 12 :59pm Postoperative primary hypothyroidism Sep ust 2024 12:59pm Family History Relationship Condition Age at Onset Recorded Date/T isma Not Specified History of blood clots Unknown Myocardial infarction Unknown mother Disorder of thyroid Unknown Malignant neoplasm Unknown father Cerebrovascular accident (CVA) Unknown Cardiac disease Unknown brother Cardiac disease Unknown Advance Directives Advance Directive Response Recorded Date/ Time Living Will Yes July 19, 2016 9 :36pm Power of Trauma Therapist Yes July 19, 2016 9:36pm Advance Directive Response Recorded Date/ Time Living Will Yes July 19, 2016 8 :36pm Power of Trauma Therapist Yes July 19, 2016 8:36pm Advance Directive Response Recorded Date/ Time Living Will Yes July 19, 2016 9 :36pm Do you have a Healthcare Power of Trauma Therapist? Yes July 19, 2016 9:36pm Summary Purpose Additional Source Comments Goals (unrecognized [...] Dr. Martina Doll MD Primary Care Provider, [facility] Active Dr. Lake Campos MD Attending Provider Active Team Status: Inactive Member Role Status Dates Dr. Martina Doll MD Primary Care Provider Active Dr. Lake Campos MD Attending Provider, [facility] Active Team Status: Inactive Member Role Status Dates Dr. Martina Doll MD Primary Care Provider Active Dr. Lake Campos MD Attending Provider Active Team Status: Inactive Member Role Status Dates Dr. Martina Doll MD Primary Care Prov ider, Attending Provider, Referring Provider Active Team Status: Inactive Member Role Status Dates Dr. 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 Nithin Brandon MD Primary Care Provider Acti ve Start: August 09, 2024 End: August 09, 2024 Giselle Paredes NP, OIL WELL FISHING TOOL OPERATOR-C Attending Provider Active Start: August 09, 2024 [...] 2024 End: August 09, 2024 Giselle Paredes NP OIL WELL FISHING TOOL OPERATOR-C Attending Provider Active Start: August 09, 2024 [...] August 19, 2024 End: August 19, 2024 Team Status: Inactive Member Role/Relationship Status Dates Dr. Nithin Brandon MD Primary Care Provider Acti ve Start: September 22, 2024 End: September 22, 2024 Dr. Nithin Brandon MD Attending Provider Active Start: September 22, 2024 End: September 22, 2024 Dr. Nithin Brandon MD Referring Provider Active Start: September 22, 2024 End: September 22, 2024 Team Status: Active Member Role/Relationship Status Dates Dr. Nithin Brandon MD Primary Care Provider Acti ve Start: September 22, 2024 Dr. Pete Benton MD Attending Provider Active S tart: September 22, 2024 Team Status: Inactive Member Role/Relationship Status Dates Dr. Nithin Brandon MD Primary Care Provider Acti ve Start: August 09, 2024 End: August 09, 2024 Giselle Paredes NP OIL WELL FISHING TOOL OPERATOR-C Attending Provider Active Start: August 09, 2024 [...] August 19, 2024 End: August 19, 2024 Team Status: Inactive Member Role/Relationship Status Dates Dr. Nithin Brandon MD Primary Care Provider Acti ve Start: September 22, 2024 End: September 22, 2024 Dr. Nithin Brandon MD Attending Provider Active Start: September 22, 2024 End: September 22, 2024 Dr. Nithin Brandon MD Referring Provider Active Start: September 22, 2024 End: September 22, 2024 Team Status: Active Member Role/Relationship Status Dates Dr. Nithin Brandon MD Primary Care Provider Acti ve Start: September 22, 2024 Dr. Pete Benton MD Attending Provider Active S tart: September 22, 2024 Team Status: Inactive Member Role/Relationship Status Dates Dr. Martina Doll MD Referring Provider Active Start: October 19, 2024 End: October 19, 2024 Dr. Lake Campos MD Attending Provider Active Sta rt: October 19, 2024 End: October 19, 2024 Dr. Nithin Brandon MD Primary Care Provider Acti ve Start: October 19, 2024 End: October 19, 2024 Team Status: Active Member Role/Relationship Status Dates Dr. Nithin Brandon MD Primary care physician Act alirio Team Status: Inactive Member Role/Relationship Status Dates Dr. Nithin Brandon MD Primary care physician Act alirio Start: August 09, 2024 End: August 09, 2024 Giselle Paredes OIL WELL FISHING TOOL OPERATOR, OIL WELL FISHING TOOL OPERATOR-C Attending physician Active Start: August 09, 2024 End: August 09, 2024 Team Status: Inactive Member Role/Relationship Status Dates Dr. Nithin Brandon MD Primary care physician Act alirio Start: August 19, 2024 End: August 19, 2024 Dr. Nithin Brandon MD Attending physician Active Start: August 19, 2024 End: August 19, 2024 Dr. Nithin Brandon MD Referring Provider Active Start: August 19, 2024 End: August 19, 2024 Team Status: Inactive Member Role/Relationship Status Dates Dr. Nithin Brandon MD Primary care physician Act alirio Start: September 22, 2024 End: September 22, 2024 Dr. Nithin Brandon MD Attending physician Active Start: September 22, 2024 End: September 22, 2024 Dr. Nithin Brandon MD Referring Provider Active Start: September 22, 2024 End: September 22, 2024 Team Status: Active Member Role/Relationship Status Dates Dr. Nithin Brandon MD Primary care physician Act alirio Start: September 22, 2024 Dr. Pete Benton MD Attending physician Active Start: September 22, 2024 Team Status: Inactive Member Role/Relationship Status Dates Dr. Martina Doll MD Referring Provider Active Start: October 19, 2024 End: October 19, 2024 Dr. Lake Campos MD Attending physician Active St art: October 19, 2024 End: October 19, 2024 Dr. Nithin Brandon MD Primary care physician Act alirio Start: October 19, 2024 End: October 19, 2024 Team Status: Inactive Member Role/Relationship Status Dates Dr. Nithin Brandon MD Primary care physician Act alirio Start: November 03, 2024 End: November 03, 2024 Dr. Lake Campos MD Attending physician Active St art: November 03, 2024 End: November 03, 2024 Dr. Lake Campos MD Referring Provider Active Sta rt: November 03, 2024 End: November 03, 2024 Source Comments (unrecognize d section and content) In the event this informatio n is protected by the Federal Confidentiality of Alcohol and Drug Abuse Patient Records regulations: The Federal rules restrict any use of the information to criminally investigate or prosecute any alcohol or drug abuse patient.[facility] Reason for Visit (unrecogniz ed section and content) Reason Comments Yearly Exam INFORMATION SOURCE (unrecogn ized section and content) DATE CREATED AUTHOR 07/24/2024 [facility] DATE CREATED AUTHOR 'S WILL ATION 11/17/2024 [facility] FOR RECORDS PERTAINING TO PATIENTS WHO [...] BE BASED ON THE PRIMARY CLINICAL RECORDS. [facility] [employer] [facility]. provides no warranty or guarantee of the accuracy or completeness of information in this document.
[2025-01-14 12:11] VITALS: BP 116/48; PULSE 68; RESP 16; O2SAT 97
== END 2025-01-14 23:59 | disposition home or self-care (01) ==
LOC: MEDOUTP 11:20
PROVIDERS: PCP Family Medicine; Referring Provider Internal Medicine Endocrinology, Diabetes & Metabolism; Visit Provider Internal Medicine Endocrinology, Diabetes & Metabolism
DX: M81.0 Age-related osteoporosis without current pathological fracture (principal)
CPT/HCPCS: 96365; A4216; J3489